=== PATIENT | male | born 1955 | race Caucasian/White ===

== ENCOUNTER → 2016-11-04 | Outpatient (CLI) | payer OTHER ==
[~2016-11-04] MED LIST: ASPI325T PO; CALC-170 PO; CETI10TA PO; CLAR10CA3 PO; CRES20TA PO; FISH100049 PO; FURO20TA2 PO; HUMA100I3 SC; INSULANT SC; INSUR SC; ISOS60TA2 PO; K-TA10TA2 PO; LEXA1TAB PO; LISI-538 PO; METF1000 PO; METO100T PO; METO50TA2 PO; MULTCAP PO; OMEP20CA3 PO; PRIL20CA9 PO; RANO5TAB PO; ROSU10TA PO; TOUJ1.2I SC; TRIC145T PO; ZETI10TA2 PO
[2016-11-04 11:23] LABS: MEAN CORPUSCULAR HEMOGLOBIN 32.6 pg (27.0-33.0); MEAN CORPUSCULAR HGB CONC 35.8 g/dl (32.0-36.5); RED CELL DISTRIBUTION WIDTH 12.1 % (11.5-14.5)
[2016-11-04 12:40] LABS: ALBUMIN 4.1 GM/DL (3.2-5.2); ALBUMIN/GLOBULIN RATIO 1.41 (1.00-1.93); BILIRUBIN,TOTAL 0.4 MG/DL (0.2-1.0); CALCIUM LEVEL 9.6 MG/DL (8.8-10.2); CREATININE FOR GFR 1.38 MG/DL (0.70-1.30); GLOMERULAR FILTRATION RATE 55.8 (>49); POTASSIUM SERUM 4.5 MEQ/L (3.5-5.1)
== END ==
LOC: M LAB 10:27
PROVIDERS: ATTEND Nurse Practitioner Family
DX: Z01.812 Encounter for preprocedural laboratory examination (principal)

== ENCOUNTER → 2016-11-09 | Outpatient (CLI) | payer OTHER ==
[2016-11-09 16:05] LABS: MEAN CORPUSCULAR HEMOGLOBIN 32.7 pg (27.0-33.0); MEAN CORPUSCULAR HGB CONC 34.8 g/dl (32.0-36.5); MEAN CORPUSCULAR VOLUME 94.1 fl (80.0-96.0); RED CELL DISTRIBUTION WIDTH 12.5 % (11.5-14.5); WHITE BLOOD COUNT 7.1 K/mm3 (4.0-10.0)
[2016-11-09 16:53] LABS: ANION GAP 6 MEQ/L (8-16); BLOOD UREA NITROGEN 21 MG/DL (7-18); CALCIUM LEVEL 9.3 MG/DL (8.8-10.2); CARBON DIOXIDE LEVEL 28 MEQ/L (21-32); CHLORIDE LEVEL 105 MEQ/L (98-107); CREATININE FOR GFR 1.47 MG/DL (0.70-1.30); GLOMERULAR FILTRATION RATE 51.8 (>49); GLUCOSE, FASTING 159 MG/DL (80-110); MAGNESIUM LEVEL 1.5 MG/DL (1.8-2.4); POTASSIUM SERUM 4.3 MEQ/L (3.5-5.1); SODIUM LEVEL 139 MEQ/L (136-145); URIC ACID 4.4 MG/DL (3.5-7.2)
== END ==
LOC: M LAB 15:04
PROVIDERS: ATTEND Internal Medicine Nephrology
DX: N18.3 Chronic kidney disease, stage 3 (moderate) (principal); E11.22 Type 2 diabetes mellitus with diabetic chronic kidney disease; D63.1 Anemia in chronic kidney disease; N25.81 Secondary hyperparathyroidism of renal origin

== ENCOUNTER → 2016-11-15 | Day surgery (SDC) | payer OTHER ==
[~2016-11-15] VITALS: Ht 165.1 cm; Wt 104.3 kg
[~2016-11-15] MED LIST changes: +ACETAMINOPHEN 325 MG TAB PO PRN; +D5W/0.2% SODIUM CHLORIDE 250 ML IV SCH; +ERYTHROMYCIN OPHTH OINT As Ordered ONE; +LIDOCAINE 2% W/EPIN INJ 20ML **PRES FREE As Ordered ONE; +LIDOCAINE 4% INJ 5 ML AMP As Ordered ONE; +LIDOCAINE 4% INJ 5 ML AMP OU ONE; +MIDAZOLAM INJ 2 MG/2 ML VIAL (J2250) As Ordered ONE; +POVIDONE-IODINE 5% OPHTH PREP SOL 30ML As Ordered ONE; +PROPARACAINE 0.5% OPHTH SOL 15ML OS PRN; +TETRACAINE 0.5% OPHTH SOLN 4ML As Ordered ONE; +TRIMETHOBENZAMIDE 300 MG CAP PO PRN; +fentaNYL 100 MCG/2 ML INJECTION (J3010) As Ordered ONE
[2016-11-15 14:38] VITALS: BP 110/60
--- NOTE | 2016-11-16 05:44 | RO ---
DATE OF PROCEDURE: 11/15/2016 PREPROCEDURE DIAGNOSIS: Visually significant ptosis left upper lid. POSTPROCEDURE DIAGNOSIS: Visually significant ptosis left upper lid status post ptosis repair by levator advancement left upper lid. PROCEDURE: Ptosis repair by levator advancement left upper lid external approach. SURGEON: Anant Rangel Jr., DO, FACS FABRICATION OPERATOR: None. ANESTHESIA: 2% lidocaine with epinephrine infused locally with sedation by anesthesia ESTIMATED BLOOD LOSS: Minimal. COMPLICATIONS: None. SPECIMEN: Left upper lid skin and subcutaneous tissue and muscle sent to pathology. It appeared clinically normal. PROCEDURE IN DETAIL: After obtaining informed consent, the patient was taken to the operating room and prepped and draped in a sterile fashion. The upper lids were inspected. The upper lid crease on both eyes was 10 mm. The left eye was marked with the desired amount of skin to be excised. The excess skin was dissected with cutting dissection by Bovie cautery. The upper lid was dissected and the levator aponeurosis was identified. The levator aponeurosis was freed with sharp and blunt dissection and brought forward and repositioned onto the tarsal plate approximately 4 mm from the lid line with horizontal mattress secretion of #6-0 silk. The patient was sat up and lid position was checked and found to be satisfactory. Next, the skin was closed with running #6-0 Nylon suture. The drape was removed and the patient had an ice pack applied to his left eye with erythromycin ointment. He returned to the recovery room in excellent condition and will followup in the office postoperatively. Postoperative medication is erythromycin ointment four times a day in the left eye and on the suture line.
== END | disposition home or self-care (01) ==
LOC: M SDC 09:55
PROVIDERS: ATTEND Ophthalmology
DX: H02.412 Mechanical ptosis of left eyelid (principal); H02.834 Dermatochalasis of left upper eyelid; I10 Essential (primary) hypertension; E10.9 Type 1 diabetes mellitus without complications; Z79.4 Long term (current) use of insulin; I25.2 Old myocardial infarction; I25.10 Atherosclerotic heart disease of native coronary artery without angina pectoris; I20.9 Angina pectoris, unspecified; F32.9 Major depressive disorder, single episode, unspecified; Z98.61 Coronary angioplasty status; Z79.82 Long term (current) use of aspirin; J44.9 Chronic obstructive pulmonary disease, unspecified; K21.9 Gastro-esophageal reflux disease without esophagitis; F17.210 Nicotine dependence, cigarettes, uncomplicated; Z79.899 Other long term (current) drug therapy

== ENCOUNTER → 2017-02-02 | Outpatient (CLI) | payer OTHER ==
[~2017-02-02] MED LIST changes: -ACETAMINOPHEN 325 MG TAB PO PRN; +CRES10TA32 PO; -D5W/0.2% SODIUM CHLORIDE 250 ML IV SCH; -ERYTHROMYCIN OPHTH OINT As Ordered ONE; -LIDOCAINE 2% W/EPIN INJ 20ML **PRES FREE As Ordered ONE; -LIDOCAINE 4% INJ 5 ML AMP As Ordered ONE; -LIDOCAINE 4% INJ 5 ML AMP OU ONE; -MIDAZOLAM INJ 2 MG/2 ML VIAL (J2250) As Ordered ONE; -POVIDONE-IODINE 5% OPHTH PREP SOL 30ML As Ordered ONE; -PROPARACAINE 0.5% OPHTH SOL 15ML OS PRN; -ROSU10TA PO; -TETRACAINE 0.5% OPHTH SOLN 4ML As Ordered ONE; -TRIMETHOBENZAMIDE 300 MG CAP PO PRN; -fentaNYL 100 MCG/2 ML INJECTION (J3010) As Ordered ONE
[2017-02-02 10:31] LABS: MEAN CORPUSCULAR HEMOGLOBIN 33.6 pg (27.0-33.0); MEAN CORPUSCULAR HGB CONC 35.4 g/dl (32.0-36.5); RED CELL DISTRIBUTION WIDTH 12.9 % (11.5-14.5); WHITE BLOOD COUNT 6.7 K/mm3 (4.0-10.0)
[2017-02-02 11:22] LABS: ALBUMIN 3.9 GM/DL (3.2-5.2); ALBUMIN/GLOBULIN RATIO 1.22 (1.00-1.93); BILIRUBIN,TOTAL 0.3 MG/DL (0.2-1.0); CALCIUM LEVEL 9.5 MG/DL (8.8-10.2); CREATININE FOR GFR 1.3 MG/DL (0.70-1.30); GLOMERULAR FILTRATION RATE 59.7 (>49); POTASSIUM SERUM 4.1 MEQ/L (3.5-5.1); TOTAL PROTEIN 7.1 GM/DL (6.4-8.2)
== END ==
LOC: M LAB 10:04
PROVIDERS: ATTEND Nurse Practitioner Family
DX: I10 Essential (primary) hypertension (principal); E11.9 Type 2 diabetes mellitus without complications; E78.00 Pure hypercholesterolemia, unspecified

== ENCOUNTER → 2017-05-05 | Outpatient (CLI) | payer OTHER ==
[~2017-05-05] MED LIST changes: -METF1000 PO; +METF10004 PO; -METO100T PO; +METO100T5 PO; -METO50TA2 PO; +METO50TA7 PO; -TRIC145T PO; +TRIC145T22 PO; -ZETI10TA2 PO; +ZETI10TA30 PO
[2017-05-05 09:57] LABS: MEAN CORPUSCULAR HEMOGLOBIN 33.8 pg (27.0-33.0); MEAN CORPUSCULAR HGB CONC 36.1 g/dl (32.0-36.5); MEAN CORPUSCULAR VOLUME 93.9 fl (80.0-96.0); RED CELL DISTRIBUTION WIDTH 12.6 % (11.5-14.5); WHITE BLOOD COUNT 6.8 K/mm3 (4.0-10.0)
[2017-05-05 10:13] LABS: ALBUMIN 3.8 GM/DL (3.2-5.2); ALBUMIN/GLOBULIN RATIO 1.19 (1.00-1.93); BILIRUBIN,TOTAL 0.4 MG/DL (0.2-1.0); CALCIUM LEVEL 9.1 MG/DL (8.8-10.2); CREATININE FOR GFR 1.4 MG/DL (0.70-1.30); GLOMERULAR FILTRATION RATE 54.8 (>49); POTASSIUM SERUM 4.3 MEQ/L (3.5-5.1)
== END ==
LOC: M LAB 08:26
PROVIDERS: ATTEND Nurse Practitioner Family
DX: I10 Essential (primary) hypertension (principal); E78.00 Pure hypercholesterolemia, unspecified; E11.9 Type 2 diabetes mellitus without complications

== ENCOUNTER → 2017-08-16 | Outpatient (CLI) | payer OTHER ==
[2017-08-16 10:46] LABS: MEAN CORPUSCULAR HEMOGLOBIN 32.1 pg (27.0-33.0); MEAN CORPUSCULAR HGB CONC 35.2 g/dl (32.0-36.5); MEAN CORPUSCULAR VOLUME 91.2 fl (80.0-96.0); PLATELET COUNT, AUTOMATED 250 10^3/uL (150-450); RED CELL DISTRIBUTION WIDTH 12.5 % (11.5-14.5); WHITE BLOOD COUNT 8.4 10^3/uL (4.0-10.0)
[2017-08-16 11:16] LABS: ALBUMIN 3.6 GM/DL (3.2-5.2); ALBUMIN/GLOBULIN RATIO 1.03 (1.00-1.93); BILIRUBIN,TOTAL 0.5 MG/DL (0.2-1.0); CALCIUM LEVEL 9.2 MG/DL (8.8-10.2); CREATININE FOR GFR 1.43 MG/DL (0.70-1.30); GLOMERULAR FILTRATION RATE 53.3 (>49); POTASSIUM SERUM 3.9 MEQ/L (3.5-5.1); TOTAL PROTEIN 7.1 GM/DL (6.4-8.2)
== END ==
LOC: M LAB 09:58
PROVIDERS: ATTEND Nurse Practitioner Family
DX: I10 Essential (primary) hypertension (principal); E78.00 Pure hypercholesterolemia, unspecified; E11.9 Type 2 diabetes mellitus without complications

== ENCOUNTER → 2017-11-14 | Outpatient (CLI) | payer OTHER ==
[2017-11-14 09:48] LABS: HEMATOCRIT 41.3 % (42.0-52.0); HEMOGLOBIN 14.5 g/dl (14.0-18.0); MEAN CORPUSCULAR HEMOGLOBIN 32.6 pg (27.0-33.0); MEAN CORPUSCULAR HGB CONC 35.1 g/dl (32.0-36.5); MEAN CORPUSCULAR VOLUME 92.8 fl (80.0-96.0); PLATELET COUNT, AUTOMATED 252 10^3/uL (150-450); RED BLOOD COUNT 4.45 10^6/uL (4.30-6.10); WHITE BLOOD COUNT 7.8 10^3/uL (4.0-10.0)
[2017-11-14 10:11] LABS: ALBUMIN 3.8 GM/DL (3.2-5.2); ALBUMIN/GLOBULIN RATIO 1.23 (1.00-1.93); ALKALINE PHOSPHATASE 72 U/L (45-117); ALT/SGPT 54 U/L (12-78); ANION GAP 8 MEQ/L (8-16); AST/SGOT 37 U/L (7-37); BILIRUBIN,TOTAL 0.3 MG/DL (0.2-1.0); BLOOD UREA NITROGEN 18 MG/DL (7-18); CALCIUM LEVEL 8.9 MG/DL (8.8-10.2); CARBON DIOXIDE LEVEL 27 MEQ/L (21-32); CHLORIDE LEVEL 105 MEQ/L (98-107); CHOLESTEROL LEVEL 151 MG/DL (<200); CPK CREATINE PHOSPHOKINASE 278 U/L (39-308); CREATININE FOR GFR 1.25 MG/DL (0.70-1.30); ESTIMATED AVERAGE GLUCOSE 192 MG/DL (60-110); GLOMERULAR FILTRATION RATE > 60.0 (>49); GLUCOSE, FASTING 142 MG/DL (70-100); HDL CHOLESTEROL 21 MG/DL (>40); HEMOGLOBIN A1c 8.3 %; NON-HDL-C 130 MG/DL; POTASSIUM SERUM 4.2 MEQ/L (3.5-5.1); SODIUM LEVEL 140 MEQ/L (136-145); TOTAL PROTEIN 6.9 GM/DL (6.4-8.2); TRIGLYCERIDES LEVEL 562 MG/DL (<150)
== END ==
LOC: M LAB 08:51
DX: E11.9 Type 2 diabetes mellitus without complications (principal); I10 Essential (primary) hypertension; E78.00 Pure hypercholesterolemia, unspecified
CPT/HCPCS: 82550

== ENCOUNTER → 2017-12-26 | Outpatient (CLI) | payer OTHER ==
[2017-12-26 09:35] LABS: BASO # 0.2 10^3/uL (0.0-0.2); BASO % 1.9 % (0.0-1.0); EOS # 0.5 10^3/uL (0.0-0.50); EOS % 5.3 % (0.0-3.0); HEMATOCRIT 41.3 % (42.0-52.0); HEMOGLOBIN 14.3 g/dl (13.5-17.5); IMMATURE GRANULOCYTE % 0.5 % (0-3.0); LYMPH # 3.2 10^3/uL (1.5-4.5); LYMPH % 37.4 % (24.0-44.0); MEAN CORPUSCULAR HEMOGLOBIN 32.2 pg (27.0-33.0); MEAN CORPUSCULAR HGB CONC 34.6 g/dl (32.0-36.5); MONO # 0.8 10^3/uL (0.0-0.8); MONO % 8.9 % (0.0-5.0); PLATELET COUNT, AUTOMATED 261 10^3/uL (150-450); RED BLOOD COUNT 4.44 10^6/uL (4.30-6.10); RED CELL DISTRIBUTION WIDTH 12.5 % (11.5-14.5); WHITE BLOOD COUNT 8.6 10^3/uL (4.0-10.0)
[2017-12-26 09:37] LABS: APPEARANCE, URINE CLEAR (CLEAR); BACTERIA, URINE AUTO NEGATIVE (NEGATIVE); BILIRUBIN, URINE AUTO NEGATIVE (NEGATIVE); BLOOD, URINE BLOOD NEGATIVE (NEGATIVE); COLOR, URINE YELLOW (YELLOW); GLUCOSE, URINE (UA) AUTO NEGATIVE (NEGATIVE); KETONE, URINE AUTO NEGATIVE (NEGATIVE); LEUKOCYTE ESTERASE, URINE AUTO NEGATIVE (NEGATIVE); NITRITE, URINE AUTO NEGATIVE (NEGATIVE); PROTEIN, URINE AUTO NEGATIVE (NEGATIVE); RBC, URINE AUTO 2 /HPF (0-3); SPECIFIC GRAVITY URINE AUTO 1.018 (1.002-1.035); SQUAMOUS EPITHELIAL CELL UR AU 0 /HPF (0-6); UROBILINOGEN, URINE AUTO 0.2 mg/dL (0.0-2.0); WBC, URINE AUTO 1 /HPF (0-3)
[2017-12-26 10:06] LABS: PTH INTACT 7.3 PG/ML (18.5-88.0)
[2017-12-26 11:38] LABS: ALBUMIN 3.9 GM/DL (3.2-5.2); ANION GAP 8 MEQ/L (8-16); BLOOD UREA NITROGEN 27 MG/DL (7-18); CALCIUM LEVEL 9.4 MG/DL (8.8-10.2); CARBON DIOXIDE LEVEL 27 MEQ/L (21-32); CHLORIDE LEVEL 104 MEQ/L (98-107); CREATININE FOR GFR 1.47 MG/DL (0.70-1.30); GLOMERULAR FILTRATION RATE 51.7 (>49); GLUCOSE, FASTING 152 MG/DL (70-100); PHOSPHORUS LEVEL 3.7 MG/DL (2.5-4.9); POTASSIUM SERUM 4.4 MEQ/L (3.5-5.1); SODIUM LEVEL 139 MEQ/L (136-145); URIC ACID 4.3 MG/DL (3.5-7.2)
[2017-12-26 11:47] LABS: MALB URINE SIEMENS 43.8 MG/L; MAU/CREAT RATIO 31.2 MCG/MG (0.0-30.0)
== END ==
LOC: M LAB 08:27
DX: N18.3 Chronic kidney disease, stage 3 (moderate) (principal); E83.42 Hypomagnesemia; E11.22 Type 2 diabetes mellitus with diabetic chronic kidney disease; I12.9 Hypertensive chronic kidney disease with stage 1 through stage 4 chronic kidney disease, or unspecified chronic kidney disease
CPT/HCPCS: 83735

== ENCOUNTER → 2018-03-08 | Outpatient (CLI) | payer OTHER ==
[2018-03-08 12:57] LABS: HEMATOCRIT 42.8 % (42.0-52.0); HEMOGLOBIN 15.2 g/dl (13.5-17.5); MEAN CORPUSCULAR HEMOGLOBIN 33.1 pg (27.0-33.0); MEAN CORPUSCULAR HGB CONC 35.5 g/dl (32.0-36.5); MEAN CORPUSCULAR VOLUME 93.2 fl (80.0-96.0); PLATELET COUNT, AUTOMATED 224 10^3/uL (150-450); RED BLOOD COUNT 4.59 10^6/uL (4.30-6.10); RED CELL DISTRIBUTION WIDTH 12.5 % (11.5-14.5); WHITE BLOOD COUNT 8.9 10^3/uL (4.0-10.0)
[2018-03-08 13:12] LABS: ESTIMATED AVERAGE GLUCOSE 160 MG/DL (60-110); HEMOGLOBIN A1c 7.2 %
[2018-03-08 13:25] LABS: ALBUMIN 3.9 GM/DL (3.2-5.2); ALBUMIN/GLOBULIN RATIO 1.15 (1.00-1.93); ALKALINE PHOSPHATASE 65 U/L (45-117); ALT/SGPT 45 U/L (12-78); ANION GAP 9 MEQ/L (8-16); AST/SGOT 30 U/L (7-37); BILIRUBIN,TOTAL 0.4 MG/DL (0.2-1.0); BLOOD UREA NITROGEN 22 MG/DL (7-18); CALCIUM LEVEL 10.2 MG/DL (8.8-10.2); CARBON DIOXIDE LEVEL 29 MEQ/L (21-32); CHLORIDE LEVEL 104 MEQ/L (98-107); CHOLESTEROL LEVEL 142 MG/DL (<200); CHOLESTEROL RISK RATIO 6.173 (<5); CPK CREATINE PHOSPHOKINASE 256 U/L (39-308); CREATININE FOR GFR 1.56 MG/DL (0.70-1.30); GLOMERULAR FILTRATION RATE 48.2 (>49); GLUCOSE, FASTING 117 MG/DL (70-100); HDL CHOLESTEROL 23 MG/DL (>40); LDL CHOLESTEROL 45.2 MG/DL (<100); NON-HDL-C 119 MG/DL; POTASSIUM SERUM 4.4 MEQ/L (3.5-5.1); SODIUM LEVEL 142 MEQ/L (136-145); TOTAL PROTEIN 7.3 GM/DL (6.4-8.2); TRIGLYCERIDES LEVEL 369 MG/DL (<150)
[2018-03-08 13:31] LABS: MAU/CREAT RATIO 111.6 MCG/MG (0.0-30.0)
== END ==
LOC: M LAB 11:56
DX: I10 Essential (primary) hypertension (principal)
CPT/HCPCS: 82550

== ENCOUNTER → 2018-04-20 | Outpatient (CLI) | payer OTHER ==
[2018-04-20 07:36] LABS: HEMATOCRIT 40.4 % (42.0-52.0); HEMOGLOBIN 14.4 g/dl (13.5-17.5); MEAN CORPUSCULAR HEMOGLOBIN 33.3 pg (27.0-33.0); MEAN CORPUSCULAR HGB CONC 35.6 g/dl (32.0-36.5); MEAN CORPUSCULAR VOLUME 93.3 fl (80.0-96.0); PLATELET COUNT, AUTOMATED 271 10^3/uL (150-450); RED BLOOD COUNT 4.33 10^6/uL (4.30-6.10); RED CELL DISTRIBUTION WIDTH 12.2 % (11.5-14.5); WHITE BLOOD COUNT 8.1 10^3/uL (4.0-10.0)
[2018-04-20 07:53] LABS: ALBUMIN 3.7 GM/DL (3.2-5.2); ANION GAP 9 MEQ/L (8-16); BLOOD UREA NITROGEN 20 MG/DL (7-18); CALCIUM LEVEL 9.5 MG/DL (8.8-10.2); CARBON DIOXIDE LEVEL 26 MEQ/L (21-32); CHLORIDE LEVEL 106 MEQ/L (98-107); CREATININE FOR GFR 1.58 MG/DL (0.70-1.30); GLOMERULAR FILTRATION RATE 47.5 (>49); GLUCOSE, FASTING 155 MG/DL (70-100); PHOSPHORUS LEVEL 3.6 MG/DL (2.5-4.9); POTASSIUM SERUM 4.4 MEQ/L (3.5-5.1); SODIUM LEVEL 141 MEQ/L (136-145)
[2018-04-20 08:04] LABS: MAU/CREAT RATIO 92.9 MCG/MG (0.0-30.0)
[2018-04-20 08:38] LABS: APPEARANCE, URINE CLEAR (CLEAR); BACTERIA, URINE AUTO NEGATIVE (NEGATIVE); BILIRUBIN, URINE AUTO NEGATIVE (NEGATIVE); BLOOD, URINE BLOOD NEGATIVE (NEGATIVE); COLOR, URINE YELLOW (YELLOW); GLUCOSE, URINE (UA) AUTO NEGATIVE (NEGATIVE); KETONE, URINE AUTO NEGATIVE (NEGATIVE); LEUKOCYTE ESTERASE, URINE AUTO NEGATIVE (NEGATIVE); NITRITE, URINE AUTO NEGATIVE (NEGATIVE); PROTEIN, URINE AUTO NEGATIVE (NEGATIVE); RBC, URINE AUTO 0 /HPF (0-3); SPECIFIC GRAVITY URINE AUTO 1.013 (1.002-1.035); SQUAMOUS EPITHELIAL CELL UR AU 0 /HPF (0-6); UROBILINOGEN, URINE AUTO 0.2 mg/dL (0.0-2.0); WBC, URINE AUTO 1 /HPF (0-3)
== END ==
LOC: M LAB 06:58
DX: N18.3 Chronic kidney disease, stage 3 (moderate) (principal); E11.22 Type 2 diabetes mellitus with diabetic chronic kidney disease
CPT/HCPCS: 84550

== ENCOUNTER → 2018-05-23 | Outpatient (CLI) | payer OTHER ==
[2018-05-23 10:50] LABS: BASO # 0.1 10^3/uL (0.0-0.2); BASO % 1.4 % (0.0-1.0); EOS # 0.4 10^3/uL (0.0-0.50); EOS % 4.8 % (0.0-3.0); HEMATOCRIT 38.8 % (42.0-52.0); HEMOGLOBIN 13.6 g/dl (13.5-17.5); IMMATURE GRANULOCYTE % 0.4 % (0-3.0); LYMPH # 3.2 10^3/uL (1.5-4.5); LYMPH % 38.6 % (24.0-44.0); MEAN CORPUSCULAR HEMOGLOBIN 32.3 pg (27.0-33.0); MEAN CORPUSCULAR HGB CONC 35.1 g/dl (32.0-36.5); MEAN CORPUSCULAR VOLUME 92.2 fl (80.0-96.0); MONO # 0.7 10^3/uL (0.0-0.8); MONO % 8.7 % (0.0-5.0); NEUTROPHILS # 3.8 10^3/uL (1.8-7.7); NEUTROPHILS % 46.1 % (36.0-66.0); PLATELET COUNT, AUTOMATED 231 10^3/uL (150-450); RED BLOOD COUNT 4.21 10^6/uL (4.30-6.10); RED CELL DISTRIBUTION WIDTH 12.2 % (11.5-14.5); WHITE BLOOD COUNT 8.3 10^3/uL (4.0-10.0)
[2018-05-23 10:55] LABS: APPEARANCE, URINE CLEAR (CLEAR); BACTERIA, URINE AUTO NEGATIVE (NEGATIVE); BILIRUBIN, URINE AUTO NEGATIVE (NEGATIVE); BLOOD, URINE BLOOD NEGATIVE (NEGATIVE); COLOR, URINE YELLOW (YELLOW); GLUCOSE, URINE (UA) AUTO NEGATIVE (NEGATIVE); KETONE, URINE AUTO NEGATIVE (NEGATIVE); LEUKOCYTE ESTERASE, URINE AUTO NEGATIVE (NEGATIVE); NITRITE, URINE AUTO NEGATIVE (NEGATIVE); PROTEIN, URINE AUTO NEGATIVE (NEGATIVE); RBC, URINE AUTO 3 /HPF (0-3); SPECIFIC GRAVITY URINE AUTO 1.015 (1.002-1.035); SQUAMOUS EPITHELIAL CELL UR AU 0 /HPF (0-6); UROBILINOGEN, URINE AUTO 0.2 mg/dL (0.0-2.0); WBC, URINE AUTO 1 /HPF (0-3)
[2018-05-23 11:12] LABS: ALBUMIN 3.7 GM/DL (3.2-5.2); ANION GAP 8 MEQ/L (8-16); BLOOD UREA NITROGEN 28 MG/DL (7-18); CALCIUM LEVEL 10.2 MG/DL (8.8-10.2); CARBON DIOXIDE LEVEL 25 MEQ/L (21-32); CHLORIDE LEVEL 105 MEQ/L (98-107); CREATININE FOR GFR 1.47 MG/DL (0.70-1.30); GLOMERULAR FILTRATION RATE 51.7 (>49); GLUCOSE, FASTING 129 MG/DL (70-100); PHOSPHORUS LEVEL 3.3 MG/DL (2.5-4.9); POTASSIUM SERUM 4.5 MEQ/L (3.5-5.1); SODIUM LEVEL 138 MEQ/L (136-145)
== END ==
LOC: M LAB 10:17
DX: N18.3 Chronic kidney disease, stage 3 (moderate) (principal); Q60.3 Renal hypoplasia, unilateral
CPT/HCPCS: 80069

== ENCOUNTER → 2018-06-05 | Outpatient (CLI) | payer OTHER ==
[2018-06-05 12:54] LABS: ESTIMATED AVERAGE GLUCOSE 160 MG/DL (60-110); HEMOGLOBIN A1c 7.2 %
[2018-06-05 13:03] LABS: CHOLESTEROL LEVEL 166 MG/DL (<200); CHOLESTEROL RISK RATIO 7.217 (<5); HDL CHOLESTEROL 23 MG/DL (>40); NON-HDL-C 143 MG/DL; TRIGLYCERIDES LEVEL 407 MG/DL (<150)
== END ==
LOC: M LAB 10:37
DX: E78.00 Pure hypercholesterolemia, unspecified (principal); E11.9 Type 2 diabetes mellitus without complications
CPT/HCPCS: 83036

== ENCOUNTER → 2018-06-27 | Outpatient (CLI) | payer OTHER ==
[2018-06-27 11:49] LABS: BASO # 0.1 10^3/uL (0.0-0.2); EOS # 0.4 10^3/uL (0.0-0.50); EOS % 5.3 % (0.0-3.0); HEMATOCRIT 38.5 % (42.0-52.0); HEMOGLOBIN 13.4 g/dl (13.5-17.5); IMMATURE GRANULOCYTE % 0.3 % (0-3.0); LYMPH # 2.8 10^3/uL (1.5-4.5); LYMPH % 41.7 % (24.0-44.0); MEAN CORPUSCULAR HEMOGLOBIN 32.7 pg (27.0-33.0); MEAN CORPUSCULAR HGB CONC 34.8 g/dl (32.0-36.5); MEAN CORPUSCULAR VOLUME 93.9 fl (80.0-96.0); MONO # 0.6 10^3/uL (0.0-0.8); MONO % 8.9 % (0.0-5.0); NEUTROPHILS # 2.8 10^3/uL (1.8-7.7); NEUTROPHILS % 41.8 % (36.0-66.0); PLATELET COUNT, AUTOMATED 213 10^3/uL (150-450); RED CELL DISTRIBUTION WIDTH 12.5 % (11.5-14.5); WHITE BLOOD COUNT 6.6 10^3/uL (4.0-10.0)
[2018-06-27 11:50] LABS: APPEARANCE, URINE CLEAR (CLEAR); BACTERIA, URINE AUTO NEGATIVE (NEGATIVE); BILIRUBIN, URINE AUTO NEGATIVE (NEGATIVE); BLOOD, URINE BLOOD NEGATIVE (NEGATIVE); COLOR, URINE YELLOW (YELLOW); GLUCOSE, URINE (UA) AUTO NEGATIVE (NEGATIVE); KETONE, URINE AUTO NEGATIVE (NEGATIVE); LEUKOCYTE ESTERASE, URINE AUTO NEGATIVE (NEGATIVE); MUCUS, URINE SMALL (NEGATIVE); NITRITE, URINE AUTO NEGATIVE (NEGATIVE); PROTEIN, URINE AUTO 1+ mg/dL (NEGATIVE); RBC, URINE AUTO 2 /HPF (0-3); SPECIFIC GRAVITY URINE AUTO 1.016 (1.002-1.035); SQUAMOUS EPITHELIAL CELL UR AU 0 /HPF (0-6); UROBILINOGEN, URINE AUTO 0.2 mg/dL (0.0-2.0); WBC, URINE AUTO 2 /HPF (0-3)
[2018-06-27 12:47] LABS: ALBUMIN 3.7 GM/DL (3.2-5.2); ANION GAP 7 MEQ/L (8-16); BLOOD UREA NITROGEN 18 MG/DL (7-18); CALCIUM LEVEL 9.4 MG/DL (8.8-10.2); CARBON DIOXIDE LEVEL 26 MEQ/L (21-32); CHLORIDE LEVEL 111 MEQ/L (98-107); CREATININE FOR GFR 1.43 MG/DL (0.70-1.30); GLOMERULAR FILTRATION RATE 53.2 (>49); GLUCOSE, FASTING 136 MG/DL (70-100); MAGNESIUM LEVEL 1.5 MG/DL (1.8-2.4); PHOSPHORUS LEVEL 3.6 MG/DL (2.5-4.9); POTASSIUM SERUM 4.6 MEQ/L (3.5-5.1); SODIUM LEVEL 144 MEQ/L (136-145)
== END ==
LOC: M LAB 10:53
DX: N18.3 Chronic kidney disease, stage 3 (moderate) (principal)
CPT/HCPCS: 83735

== ENCOUNTER → 2018-08-09 | Outpatient (CLI) | payer OTHER ==
[2018-08-09 16:29] LABS: MAGNESIUM LEVEL 1.5 MG/DL (1.8-2.4)
== END ==
LOC: M LAB 15:47
DX: E83.42 Hypomagnesemia (principal)
CPT/HCPCS: 83735

== ENCOUNTER 2018-09-25 14:30 | Outpatient (RCR) | payer OTHER ==
[~2018-09-25 14:30] MED LIST changes: +COLA100C5 PO; +ISOS30TA4 PO; +MAGN400T2 PO; +MIRA3350 PO; +TORS20TA2 PO
== END 2018-10-04 ==
LOC: M PT 14:30
PROVIDERS: ATTEND Physician Assistant Medical
DX: M54.32 Sciatica, left side (principal)

== ENCOUNTER → 2018-09-26 | Outpatient (CLI) | payer OTHER ==
[2018-09-26 09:02] LABS: BASO # 0.2 10^3/uL (0.0-0.2); BASO % 2.5 % (0.0-1.0); EOS # 0.4 10^3/uL (0.0-0.50); EOS % 5.4 % (0.0-3.0); HEMATOCRIT 40.1 % (42.0-52.0); HEMOGLOBIN 13.8 g/dl (13.5-17.5); LYMPH # 3.1 10^3/uL (1.5-4.5); LYMPH % 39.6 % (24.0-44.0); MEAN CORPUSCULAR HEMOGLOBIN 32.5 pg (27.0-33.0); MEAN CORPUSCULAR HGB CONC 34.4 g/dl (32.0-36.5); MEAN CORPUSCULAR VOLUME 94.6 fl (80.0-96.0); MONO # 0.8 10^3/uL (0.0-0.8); MONO % 10.1 % (0.0-5.0); NEUTROPHILS # 3.3 10^3/uL (1.8-7.7); PLATELET COUNT, AUTOMATED 213 10^3/uL (150-450); RED BLOOD COUNT 4.24 10^6/uL (4.30-6.10); WHITE BLOOD COUNT 7.7 10^3/uL (4.0-10.0)
[2018-09-26 09:05] LABS: APPEARANCE, URINE CLEAR (CLEAR); BACTERIA, URINE AUTO NEGATIVE (NEGATIVE); BILIRUBIN, URINE AUTO NEGATIVE (NEGATIVE); BLOOD, URINE BLOOD NEGATIVE (NEGATIVE); COLOR, URINE YELLOW (YELLOW); GLUCOSE, URINE (UA) AUTO NEGATIVE (NEGATIVE); KETONE, URINE AUTO NEGATIVE (NEGATIVE); LEUKOCYTE ESTERASE, URINE AUTO NEGATIVE (NEGATIVE); NITRITE, URINE AUTO NEGATIVE (NEGATIVE); PROTEIN, URINE AUTO 1+ mg/dL (NEGATIVE); RBC, URINE AUTO 2 /HPF (0-3); SPECIFIC GRAVITY URINE AUTO 1.015 (1.002-1.035); SQUAMOUS EPITHELIAL CELL UR AU 0 /HPF (0-6); UROBILINOGEN, URINE AUTO 0.2 mg/dL (0.0-2.0); WBC, URINE AUTO 1 /HPF (0-3)
[2018-09-26 09:53] LABS: ALBUMIN 3.9 GM/DL (3.2-5.2); CALCIUM LEVEL 9.2 MG/DL (8.8-10.2); CREATININE FOR GFR 1.56 MG/DL (0.70-1.30); GLOMERULAR FILTRATION RATE 48.1 (>49); MAGNESIUM LEVEL 2.1 MG/DL (1.8-2.4); POTASSIUM SERUM 4.6 MEQ/L (3.5-5.1)
[2018-09-26 15:07] LABS: PTH INTACT 9.2 PG/ML (18.5-88.0)
== END ==
LOC: M LAB 08:05
PROVIDERS: ATTEND Internal Medicine Nephrology
DX: N18.3 Chronic kidney disease, stage 3 (moderate) (principal)

== ENCOUNTER 2018-10-08 06:46 | Day surgery (SDC) | payer OTHER ==
[~2018-10-08] VITALS: Ht 165.1 cm; Wt 107.5 kg
[~2018-10-08 06:46] MED LIST changes: +NS 1,000 ML IV ONE
[2018-10-08] MEDS ORDERED: PROPOFOL 200 MG/20 ML VIAL As Ordered ONE ×2 (07:06→08:40)
[2018-10-08] MEDS ORDERED: LIDOCAINE 2% INJ 100 MG/5 ML SDV (FOR ANES.) As Ordered ONE (07:06)
--- NOTE | 2018-10-08 08:56 | ROOR ---
Patient Name: Jay Rapp Procedure Date: 10/08/2018 8:11 AM Date of : 1955 Age: 63 Room: [facility] Gender: Male Note Status: Finalized Procedure: Colonoscopy Indications: Screening for colon cancer: Family history of colorectal cancer in distant relative(s) Providers: Elian Peres MD Referring MD: Camron Piña Requesting Provider: Medicines: Monitored Anesthesia Care Complications: No immediate complications. Procedure: Pre-Anesthesia Assessment: - Prior to the procedure, a History and Physical was performed, and patient medications and allergies were reviewed. The patient is competent. The risks and benefits of the procedure and the sedation options and risks were discussed with the patient. All questions were answered and informed consent was obtained. Patient identification and proposed procedure were verified by the physician, the nurse and the anesthesiologist in the procedure room. Mental Status Examination: alert and oriented. Airway Examination: normal oropharyngeal airway and neck mobility. Respiratory Examination: clear to auscultation. CV Examination: normal. Prophylactic Antibiotics: The patient does not require prophylactic antibiotics. Prior Anticoagulants: The patient has taken aspirin, last dose was 1 day prior to procedure. ASA Grade Assessment: III - A patient with severe systemic disease. After reviewing the risks and benefits, the patient was deemed in satisfactory condition to undergo the procedure. The anesthesia plan was to use monitored anesthesia care (MAC). Immediately prior to administration of medications, the patient was re-assessed for adequacy to receive sedatives. The heart rate, respiratory rate, oxygen saturations, blood pressure, adequacy of pulmonary ventilation, and response to care were monitored throughout the procedure. The physical status of the patient was re-assessed after the procedure. The Colonoscope was introduced through the anus and advanced to the terminal ileum, with identification of the appendiceal orifice and IC valve. The colonoscopy was performed without difficulty. The patient tolerated the procedure well. The quality of the bowel preparation was good. The ileocecal valve, appendiceal orifice, and rectum were photographed. Scope insertion time was 4 minutes. Scope withdrawal time was 10 minutes. The total duration of the procedure was 14 minutes. Findings: The perianal and digital rectal examinations were normal. A 6 mm polyp was found in the ascending colon. The polyp was sessile. The polyp was removed with a cold snare. Resection and retrieval were complete. Verification of patient identification for the specimen was done by the physician and nurse using the patient's name, date and medical record number. Estimated blood loss was minimal. Four sessile polyps were found in the transverse colon. The polyps were 5 to 8 mm in size. These polyps were removed with a cold snare. Resection and retrieval were complete. Multiple small and large-mouthed diverticula were found from sigmoid to descending colon. There was no evidence of diverticular bleeding. Non-bleeding external and internal hemorrhoids were found during retroflexion. The hemorrhoids were medium-sized. Impression: - One 6 mm polyp in the ascending colon, removed with a cold snare. Resected and retrieved. - Four 5 to 8 mm polyps in the transverse colon, removed with a cold snare. Resected and retrieved. - Moderate diverticulosis from sigmoid to descending colon. There was no evidence of diverticular bleeding. - Non-bleeding external and internal hemorrhoids. Recommendation: - Patient has a contact number available for emergencies. The signs and symptoms of potential delayed complications were discussed with the patient. Return to normal activities tomorrow. Written discharge instructions were provided to the patient. - High fiber diet. - Resume aspirin at prior dose today. Refer to primary physician for further adjustment of therapy. - Continue present medications. - Await pathology results. - Repeat colonoscopy in 3 - 5 years for surveillance based on pathology results. - Based on the biopsy results you will receive a phone call from GI clinic in 2-3 weeks to review the pathology results AND/OR your results will be faxed to your Primary care physician. - Return to primary care physician. Elian Peres MD Elian Peres MD 10/08/2018 8:56:13 AM This report has been signed electronically. Number of Addenda: 0 Note Initiated On: 10/08/2018 8:11 AM Estimated Blood Loss: Estimated blood loss was minimal.
[2018-10-08 09:15] VITALS: BP 109/60
== END 2018-10-08 09:22 | disposition home or self-care (01) ==
LOC: M OPP 06:46
PROVIDERS: ATTEND Internal Medicine Gastroenterology
DX: Z12.11 Encounter for screening for malignant neoplasm of colon (principal); Z80.0 Family history of malignant neoplasm of digestive organs; D12.2 Benign neoplasm of ascending colon; D12.3 Benign neoplasm of transverse colon; K64.8 Other hemorrhoids; K57.30 Diverticulosis of large intestine without perforation or abscess without bleeding; I25.2 Old myocardial infarction; Z79.4 Long term (current) use of insulin; Z79.82 Long term (current) use of aspirin; Z79.899 Other long term (current) drug therapy; Z95.5 Presence of coronary angioplasty implant and graft

== ENCOUNTER → 2019-01-02 | Outpatient (CLI) | payer MEDICARE ==
[~2019-01-02] MED LIST changes: +ASPI-1 PO; -ASPI325T PO; -CALC-170 PO; +CALC1TAB27 PO; +CRES10TA PO; -CRES10TA32 PO; -CRES20TA PO; +CRES20TA2 PO; -NS 1,000 ML IV ONE
[2019-01-02 10:32] LABS: APPEARANCE, URINE CLEAR (CLEAR); BACTERIA, URINE AUTO NEGATIVE (NEGATIVE); BILIRUBIN, URINE AUTO NEGATIVE (NEGATIVE); BLOOD, URINE BLOOD NEGATIVE (NEGATIVE); COLOR, URINE YELLOW (YELLOW); GLUCOSE, URINE (UA) AUTO 1+ mg/dL (NEGATIVE); KETONE, URINE AUTO TRACE mg/dL (NEGATIVE); LEUKOCYTE ESTERASE, URINE AUTO NEGATIVE (NEGATIVE); NITRITE, URINE AUTO NEGATIVE (NEGATIVE); PROTEIN, URINE AUTO 1+ mg/dL (NEGATIVE); RBC, URINE AUTO 2 /HPF (0-3); SPECIFIC GRAVITY URINE AUTO 1.016 (1.002-1.035); SQUAMOUS EPITHELIAL CELL UR AU 0 /HPF (0-6); UROBILINOGEN, URINE AUTO 0.2 mg/dL (0.0-2.0); WBC, URINE AUTO 2 /HPF (0-3)
[2019-01-02 10:36] LABS: BASO # 0.1 10^3/uL (0.0-0.2); BASO % 1.7 % (0.0-1.0); EOS # 0.4 10^3/uL (0.0-0.50); EOS % 5.5 % (0.0-3.0); HEMATOCRIT 40.6 % (42.0-52.0); HEMOGLOBIN 13.8 g/dl (13.5-17.5); LYMPH % 39.1 % (24.0-44.0); MEAN CORPUSCULAR HEMOGLOBIN 32.9 pg (27.0-33.0); MEAN CORPUSCULAR VOLUME 96.7 fl (80.0-96.0); MONO # 0.7 10^3/uL (0.0-0.8); MONO % 9.3 % (0.0-5.0); NEUTROPHILS # 3.4 10^3/uL (1.8-7.7); PLATELET COUNT, AUTOMATED 214 10^3/uL (150-450); WHITE BLOOD COUNT 7.6 10^3/uL (4.0-10.0)
[2019-01-02 10:57] LABS: ALBUMIN 3.6 GM/DL (3.2-5.2); CALCIUM LEVEL 8.8 MG/DL (8.8-10.2); CREATININE FOR GFR 1.71 MG/DL (0.70-1.30); GLOMERULAR FILTRATION RATE 43.3 (>49); MAGNESIUM LEVEL 1.9 MG/DL (1.8-2.4); PHOSPHORUS LEVEL 3.1 MG/DL (2.5-4.9); POTASSIUM SERUM 4.2 MEQ/L (3.5-5.1); URIC ACID 5.4 MG/DL (3.5-7.2)
== END ==
LOC: M LAB 09:53
PROVIDERS: ATTEND Internal Medicine Nephrology
DX: N18.3 Chronic kidney disease, stage 3 (moderate) (principal)

== ENCOUNTER → 2019-08-06 | Outpatient (REF) | payer MEDICARE ==
[~2019-08-06] MED LIST changes: +OMEP-172 PO; -OMEP20CA3 PO; +RANO500T7 PO; -RANO5TAB PO; +ZETI10TA16 PO; -ZETI10TA30 PO
[2019-08-06 14:48] LABS: MALB URINE SIEMENS 51.2 MG/L; MAU/CREAT RATIO 113.7 MCG/MG (0.0-30.0)
== END ==
LOC: M LAB REF 13:54
PROVIDERS: ATTEND Nurse Practitioner Family
DX: E11.22 Type 2 diabetes mellitus with diabetic chronic kidney disease (principal); N18.9 Chronic kidney disease, unspecified

== ENCOUNTER → 2019-10-30 | Outpatient (REF) | payer MEDICARE ==
[~2019-10-30] MED LIST changes: -OMEP-172 PO; +OMEP1CAP73 PO
== END ==
LOC: M LAB REF 11:29
PROVIDERS: ATTEND Surgery
DX: L72.3 Sebaceous cyst (principal)

== ENCOUNTER 2020-09-16 13:15 | Emergency (ER) | payer MEDICARE ==
[~2020-09-16] VITALS: Ht 165.1 cm; Wt 114.9 kg
--- OUTSIDE RECORDS SUMMARY | 2020-09-16 13:21 | CCD | Continuity of Care Document ---
Author Author Jay SAVAGE Organization Unknown Address [address] [facility] [address] [place] [address] Phone [phone] Care Team Providers Care Alternative Dispute Resolution Mediator Name Role Phone STEVIE SAVAGE AUTM [phone] Social History Type Date Description Comments Sex Unknown Encounters Type Date Location Provider Dx Diagnosis Office Visit 09/02/2020 8:30a [facility] FRANCISCO Tinoco I10 Essential (primary) hyperten sal E11.9 Type 2 diabetes mellitus wit hout complications E78.5 Hyperlipidemia, unspecified Assessments Date Code Description Provider 09/02/2020 I10 Essential (primary) hypertension FRANCISCO Corea 09/02/2020 E11.9 Type 2 diabetes mellitus without complications FRANCISCO Corea 09/02/2020 E78.5 Hyperlipidemia, unspecified FRANCISCO Robertson 06/03/2020 I10 Essential (primary) hypertension FRANCISCO Corea 06/03/2020 E78.5 Hyperlipidemia, unspecified FRANCISCO Robertson 06/03/2020 E11.9 Type 2 diabetes mellitus without complications FRANCISCO Corea 03/11/2020 I10 Essential (primary) hypertension FRANCISCO Corea 03/11/2020 E11.9 Type 2 diabetes mellitus without complications FRANCISCO Corea Plan of Treatment Future Appointment(s):* 12/01/2020 10:00 am - FRANCISCO Corea at [facility]
--- OUTSIDE RECORDS SUMMARY | 2020-09-16 13:22 | CCD | Continuity of Care Document ---
Author Author Jay MACIAS MANUFACTURING ASSOCIATE Organization Unknown Address [address] [place] [address] Phone [phone] Care Team Providers Care Multifocal Lens Assembler Name Role Phone Molly Artjessica KAT AUTM [phone] Valente Crawford AUTM Problems Description No Information Available Social History Type Date Description Comments Sex Unknown Cigarette Use Current Cigarette Smoker 1 Pack Daily ETOH Use Occasionally consumes alcohol Tobacco Use Start: Unknown Patient is a current smoker, smo kes every day Smoking Status Reviewed: 05/12/20 Patient is a current smoker, smokes every day Allergies, Adverse Reactions, Alerts Active Allergies Reaction Severity Comments Date Cortizone 07/11/2018 Erythromycin 07/11/2018 Sulfamethoxazole 02/10/2020 Medications Active Medications SIG Qnty Indications Ordering Provide r Date Bumetanide 2mg Tablets 1 po b id Chelsea Macias NP 08/11/2020 BD Pen Needle/Micro/Ultra-Fine/32G X 6mm 32G X 6 mm Misc use as directed once daily 100units Chelsea reynolds NP 08/09/2019 Freestyle Lite Test Strip Use as Directed Three Times A Day 300units E11.22 Chelsea Macias NP 01/15/2019 BD Insulin Syringe Ultra-Fine/0.5ML/31G X 8mm 31G X 5/16" 0.5 ML Misc use as directed three times daily 100units Chelsea Macias NP 10/22/2018 Metformin HCL ER 500mg Tablets ER 24HR take one tablet by mouth twice a day 180tabs E11.22 Chelsea mcclain NP 10/16/2018 Alpha Lipoic Acid 200mg Capsules 1 po qd Unknown Gabapentin 600mg Tablets 1 po tid Unknown Novolog 100Unit/ML Solution inject subcutaneously as directed per sliding scale Unk nown Tylenol 325mg Tablets 1 or 2 every 6 hours prn/pain Unknown Colace 100mg Capsules 1 by mouth twice a day, hold for diarrhea Unknown 0 Basaglar Kwikpen 100 Unit/ML Solution Pen-Inject 55 units every morning, 50 units at bedtime 45ml Chelsea Macias NP Magnesium 400mg Tablets 2 po qd Unknown Centrum Silver Adult 50+ Adult 50 Tablets 1 po qd Unknown Cetirizine HCL 10mg Tablets 1 by mouth every day Unknown Fish Oil 1000mg Capsules 2000mg 2 qd at hs Unknown Aspirin 325mg Tablets 1 by mouth every day Unknown Omeprazole 20mg Capsules DR 1 by mouth every day Unknown Ranexa 500mg Tablets ER 12HR 1 po bid Unknown Calcium 600+D [id number] Table ts 1 by mouth bid Unknown Zetia 10mg Tablets 1 by mo uth every day Unknown Metoprolol Tartrate 50mg Tablets take one tablet by mouth twice a day maximum daily dose = 2 tablets Unknown Crestor 10mg Tablets 1 by mouth every day Unknown Lisinopril 2.5mg Tablets 1 by mouth every day Unknown Fenofibrate 160mg Tablets 1 by mouth every day Unknown Potassium Chloride Maryam ER 20Meq Tablets ER 1/2 by mouth qd Unknown History Medications Trulicity 1.5mg/0.5ML Solution Pen -Inject inject sq 1x/week. 2ml E11.22 Chelsea Macias NP 05/12/2020 - 06/18/2020 Immunizations Description No Information Available Vital Signs Date Vital Result Comment 08/11/2020 2:19pm BP Systolic 122 mmHg BP Diastolic 74 mmHg Heart Rate 89 /min Body Temperature 96.8 F Height 64.75 inches 5'4.75" Weight 252.00 lb BMI (Body Mass Index) 42.3 kg/m2 O2 % BldC Oximetry 98 % 07/09/2020 3:07pm BP Systolic 124 mmHg BP Diastolic 80 mmHg Heart Rate 95 /min Body Temperature 97.8 F Height 64.75 inches 5'4.75" Weight 248.44 lb BMI (Body Mass Index) 41.7 kg/m2 O2 % BldC Oximetry 99 % Results Test Acquired Date Facility Test Result H/L Range Note Laboratory test finding 08/11/2020 In House Hemoglobin A1c 8.1 Glucose 173 Laboratory test finding 05/12/2020 In House Glucose 133 Hemoglobin A1c 7.8 Procedures Date Code Description Status 08/09/2019 [id number] Diabetic Foot Exam Completed Medical Devices Description No Information Available Encounters Type Date Location Provider Dx Diagnosis Office Visit 08/11/2020 2:15p DR. 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 N18.3 Chronic kidney disease, stag e 3 (moderate) E78.2 Mixed hyperlipidemia I10 Essential (primary) hyperten sal E66.01 Morbid (severe) obesity due to excess calories Assessments Date Code Description Provider 08/11/2020 E11.22 Type 2 diabetes mellitus with di abetic chronic kidney disease Chelsea Macias NP 08/11/2020 N18.30 Chronic kidney disease, stage 3 unspecified Chelsea Macias NP 08/11/2020 E78.2 Mixed hyperlipidemia Chelsea mcclain NP 08/11/2020 I10 Essential (primary) hypertension Chelsea Macias NP 08/11/2020 E66.01 Morbid (severe) obesity due to e xcess calories Chelsea Macias, FABRICIO 07/09/2020 E11.22 Type 2 diabetes mellitus with di abetic chronic kidney disease Chelsea Macias, FABRICIO 07/09/2020 N18.30 Chronic kidney disease, stage 3 unspecified Cehlsea Macias, MANUFACTURING ASSOCIATE 07/09/2020 E78.2 Mixed hyperlipidemia Chelsea mcclain, MANUFACTURING ASSOCIATE 07/09/2020 I10 Essential (primary) hypertension Chelsea Macias, MANUFACTURING ASSOCIATE 07/09/2020 E66.01 Morbid (severe) obesity due to e xcess calories Chelsea Macias, FABRICIO 05/12/2020 E11.22 Type 2 diabetes mellitus with di abetic chronic kidney diseas Chelsea Macias, FABRICIO 05/12/2020 N18.3 Chronic kidney disease, stage 3 (moderate) Chelsea Macias, FABRICIO 05/12/2020 E78.2 Mixed hyperlipidemia Chelsea mcclain, MANUFACTURING ASSOCIATE 05/12/2020 I10 Essential (primary) hypertension Chelsea Macias, MANUFACTURING ASSOCIATE 05/12/2020 E66.01 Morbid (severe) obesity due to e xcess calories Chelsea Macias NP Plan of Treatment 08/11/2020 - Chelsea Macias NP* E11.22 Type 2 diabetes mellitus with diabetic chronic kidney disease* New Labs:* Hemoglobin A1c, Ordered: 08/11/20 * Glucose, Ordered: 08/11/20 * Comments:* 08/11/2020-- in office A1c= 8.1% (7.8%, 7.3%, 7.8%, 7.2%, 6.8%, 7.5%, 6.7%, 7.2%,7.2%). Random BS= 173 Meter downloaded and reviewed with patient- fasting- 155-299, lunch- 127-289, dinner- 119-328, bedtime- 109-332 Reviewed diet- still drinking at night- goes to bed around 12-1amThis was today: Breakfast: 5am- ham slice- took Novolog- took went back to bed at 6am- took 45 units [id number]- BS 155- 2 cups coffee- splenda and creamer- Took Novolog Went back to bed at 11amGot up at 1pm- BS >200- took Novolog 14 units at 1:30pm PT admits that he buys convenient canned goods- veggies, beefaroni etcCurrently: Basaglar 45 units BID, Novolog- per sliding scale- breakfast- - 20u units, dinner- 20u, May take insulin if BS >250 at bedtime= 20 units. Metformin 500mg po BID, Trulicity 1.5mg weekly- stopped due to abdominal bloating Cannot use SGLT-2 due to low renal function. Needs more consistent diet- eating 3 meals per day at regular times. Take Novolog 15 mins prior to meals. Will increase Basaglar 55units qam, 50 units qhs. Call with any lo/hi trendsRTO 3 months * Follow up:* 3 months ROSSY/CBF * N18.30 Chronic kidney disease, stage 3 unspecified* Comments:* Pt has solitary kidneyLow GFR limits potential for other oral medications.Nephrology notes reviewed 08/03/2020. Labs done 08/03/2020- per nephrology- Scr= 1.6, GFR= 44 * E78.2 Mixed hyperlipidemia* Comments:* Goal for LDL< 70 due to CAD and DM. Labs done 03/08/18- chol= 142, Trig= 369, LDL= 45, HDL= 23- stableOn Crestor 10mg po qd Labs done 06/04/19- chol= 194, Trig= 453, HDL= 28, LDL= 166 * I10 Essential (primary) hypertension* Comments:* On ANA. Lisinopril 10mg po qd. BP 122/74 * E66.01 Morbid (severe) obesity due to excess calories* Comments:* calorie restriction. Unable to exercise due to back issues. Has gained 3 lbs since last visit. * All * New Medication:* Bumetanide 2 mg - 1 po bid Functional Status Description No Information Available Mental Status Description No Information Available Referrals Description No Information Available
--- OUTSIDE RECORDS SUMMARY | 2020-09-16 13:22 | CCD | Continuity of Care Document ---
Author Author Jay MACIAS BOOKMOBILE CLERK Organization Unknown Address [address] [place] [address] Phone [phone] Care Team Providers Care Graphic Design Assistant Name Role Phone Cami Art NORTH AUTM [phone] Valente Crawford AUTM Problems Description No Information [...] SIG Qnty Indications Ordering Provide r Date BD Pen Needle/Micro/Ultra-Fine/32G X 6mm 32G X [...] day 180tabs E11.22 Chelsea mcclain NP 10/16/2018 Bumetanide 1mg Tablets 1 po b id Unknown Alpha Lipoic Acid 200mg Capsules 1 po qd Unknown Gabapentin 600mg Tablets 1 po tid Unknown Novolog 100Unit/ML Solution inject subcutaneously as directed per sliding scale Unk nown Tylenol 325mg Tablets 1 or 2 every 6 hours prn/pain Unknown Colace 100mg Capsules 1 by mouth twice a day, hold for diarrhea Unknown 0 Basaglar Kwikpen 100 Unit/ML Solution Pen-Inject 80 units every at bedtime 45ml Chelsea Macias NP Magnesium [...] 12HR 1 po bid Unknown Calcium 600+D [id number] Table ts 1 by mouth bid Unknown [...] Available Vital Signs Date Vital Result Comment 07/09/2020 3:07pm BP Systolic 124 mmHg BP Diastolic 80 mmHg Heart Rate 95 /min Body Temperature 97.8 F Height 64.75 inches 5'4.75" Weight 248.44 lb BMI (Body Mass Index) 41.7 kg/m2 O2 % BldC Oximetry 99 % 05/12/2020 12:57pm BP Systolic 122 mmHg BP Diastolic 86 mmHg Heart Rate 93 /min Height 64.75 inches 5'4.75" Weight 247.00 lb BMI (Body Mass Index) 41.4 kg/m2 O2 % BldC Oximetry 97 % Results Test Acquired Date Facility Test Result H/L Range Note Laboratory test finding 05/12/2020 In House Glucose 133 Hemoglobin A1c 7.8 Procedures Date Code Description Status 08/09/2019 [id number] Diabetic Foot Exam Completed Medical Devices Description No Information Available Encounters Type Date Location Provider Dx Diagnosis Office Visit 07/09/2020 3:00p DR. Shira Macias, [...] obesity due to excess calories Office Visit 02/10/2020 10:30a DR. 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 N18.3 Chronic kidney disease, stag e 3 (moderate) E78.2 Mixed hyperlipidemia I10 Essential (primary) hyperten sal E66.01 Morbid (severe) obesity due to excess calories Assessments Date Code Description Provider 07/09/2020 E11.22 Type 2 diabetes mellitus with di abetic chronic kidney disease Chelsea Macias NP 07/09/2020 N18.30 Chronic kidney disease, stage 3 unspecified Chelsea Macias NP 07/09/2020 E78.2 Mixed hyperlipidemia Chelsea mcclain NP 07/09/2020 I10 Essential (primary) hypertension Chelsea Macias NP 07/09/2020 E66.01 Morbid (severe) obesity due to e xcess calories Chelsea Macias NP 05/12/2020 E11.22 Type 2 diabetes mellitus with di abetic chronic kidney diseas Chelsea Macias, BOOKMOBILE CLERK 05/12/2020 N18.3 Chronic kidney disease, stage 3 (moderate) Chelsea Macias, BOOKMOBILE CLERK 05/12/2020 E78.2 Mixed hyperlipidemia Chelsea mcclain, BOOKMOBILE CLERK 05/12/2020 I10 Essential (primary) hypertension Chelsea Macias, BOOKMOBILE CLERK 05/12/2020 E66.01 Morbid (severe) obesity due to e xcess calories Chelsea Macias, FABRICIO 02/10/2020 E11.22 Type 2 diabetes mellitus with di abetic chronic kidney diseas Chelsea Macias, BOOKMOBILE CLERK 02/10/2020 N18.3 Chronic kidney disease, stage 3 (moderate) Chelsea Macias, BOOKMOBILE CLERK 02/10/2020 E78.2 Mixed hyperlipidemia Chelsea mcclain, BOOKMOBILE CLERK 02/10/2020 I10 Essential (primary) hypertension Chelsea Macias, BOOKMOBILE CLERK 02/10/2020 E66.01 Morbid (severe) obesity due to e xcess calories Chelsea Macias NP Plan of Treatment Future Appointment(s):* 08/13/2020 2:45 pm - Chelsea Macias NP at DR. Shira Powers * 08/11/2020 2:15 pm - Chelsea Macias NP at DR. Shira Powers 07/09/2020 - Chelsea Macias NP* E11.22 Type 2 diabetes mellitus with diabetic chronic kidney disease* Comments:* 05/12/2020-- in office A1c= 7.8% (7.3%, 7.8%, 7.2%, 6.8%, 7.5%, 6.7%, 7.2%,7.2%). Random BS= 133 Pt called office concerned over BS >300- see triage 07/07/2020Meter downloaded and reviewed with patient- fasting- 127-403, lunch- 973[address], dinner- 119-332 Currently: Basaglar 80units qhs, Novolog- per sliding scale- breakfast- -20u units, dinner- 20u, May take insulin if BS >250 at bedtime= 20 units. Metformin 500mg po BID, Trulicity 1.5mg weekly- stopped due to abdominal bloating Reviewed diet- pt cooks for selfStates has decreased ETOH use. Is back on whiskey- still drinking every day. Cannot use SGLT-2 due to low renal function. Feel his variation of blood sugar has more to do with diet, drinking and daily routine. Will split Basaglar 45 units BIDGiven new insulin instruction sheet with new sliding scale. RTO 1 month * Follow up:* 1 month ROSSY/CBF * N18.30 Chronic kidney disease, stage 3 unspecified* Comments:* Pt has solitary kidneyLow GFR limits potential for other oral medications.Nephrology notes reviewed 04/02/2020. Labs done 04/02/2020- per nephrology- Scr= 1.53, GFR= 46 * E78.2 Mixed hyperlipidemia* Comments:* Goal for LDL< 70 due to CAD and DM. Labs done 03/08/18- chol= 142, Trig= 369, LDL= 45, HDL= 23- stableOn Crestor 10mg po qd Labs done 06/04/19- chol= 194, Trig= 453, HDL= 28, LDL= 166 * I10 Essential (primary) hypertension* Comments:* On ANA. Lisinopril 10mg po qd. BP 124/80 * E66.01 Morbid (severe) obesity due to excess calories* Comments:* calorie restriction. Unable to exercise due to back issues. Has gained 1 lb since last visit. Functional Status Description No Information Available Mental Status Description No Information Available Referrals Description No Information Available
--- OUTSIDE RECORDS SUMMARY | 2020-09-16 13:22 | CCD | Continuity of Care Document ---
Author Author Jay MACIAS RETIREMENT VILLAGE MANAGER Organization Unknown Address [address] [place] [address] Phone [phone] Care Team Providers Care Deputy Sheriff Building Guard Name Role Phone Cami Art NORTH AUTM [phone] Valente Crawford AUTM Problems Description No Information [...] 12HR 1 po bid Unknown Calcium 600+D [id number] Table ts 1 by mouth bid Unknown [...] 7.8 Procedures Date Code Description Status 08/09/2019 [id number] Diabetic Foot Exam Completed Medical Devices Description [...] di abetic chronic kidney diseas Chelsea Macias, RETIREMENT VILLAGE MANAGER 05/12/2020 N18.3 Chronic kidney disease, stage 3 (moderate) Chelsea Macias, RETIREMENT VILLAGE MANAGER 05/12/2020 E78.2 Mixed hyperlipidemia Chelsea mcclain, RETIREMENT VILLAGE MANAGER 05/12/2020 I10 Essential (primary) hypertension Chelsea Macias, RETIREMENT VILLAGE MANAGER 05/12/2020 E66.01 Morbid (severe) obesity due to e xcess calories Chelsea Macias, FABRICIO 02/10/2020 E11.22 Type 2 diabetes mellitus with di abetic chronic kidney diseas Chelsea Macias, RETIREMENT VILLAGE MANAGER 02/10/2020 N18.3 Chronic kidney disease, stage 3 (moderate) Chelsea Macias, RETIREMENT VILLAGE MANAGER 02/10/2020 E78.2 Mixed hyperlipidemia Chelsea mcclain, RETIREMENT VILLAGE MANAGER 02/10/2020 I10 Essential (primary) hypertension Chelsea Macias, RETIREMENT VILLAGE MANAGER 02/10/2020 E66.01 Morbid (severe) obesity due to e xcess calories Chelsea Macias NP Plan of Treatment Future Appointment(s):* 08/11/2020 2:15 pm - Chelsea Macias NP at DR. Shira Powers 07/09/2020 - Chelsea Macias NP* E11.22 Type 2 diabetes mellitus with diabetic chronic kidney disease* Comments:* 05/12/2020-- in office A1c= 7.8% (7.3%, 7.8%, 7.2%, 6.8%, 7.5%, 6.7%, 7.2%,7.2%). Random BS= 133 Pt called office concerned over BS >300- see triage 07/07/2020Meter downloaded and reviewed with patient- fasting- 127403, lunch- 97317, dinner- 119332 Currently: Basaglar 80units qhs, Novolog- per sliding [...]
--- OUTSIDE RECORDS SUMMARY | 2020-09-16 13:22 | CCD ---
Author Author [facility] Address Unknown Phone Unavailable Care Team Providers Care Cooler Supervisor Name Role Phone COOK, B JULIANA SHEET METAL DUCT WORKER SUPERVISOR Unavailable Unavailable COOK, B JULIANA SHEET METAL DUCT WORKER SUPERVISOR Unavailable Unavailable COOK, B JULIANA SHEET METAL DUCT WORKER SUPERVISOR Unavailable Unavailable COOK, B JULIANA SHEET METAL DUCT WORKER SUPERVISOR Unavailable Unavailable COOK, B JULIANA SHEET METAL DUCT WORKER SUPERVISOR Unavailable Unavailable COOK, B JULIAAN SHEET METAL DUCT WORKER SUPERVISOR Unavailable Unavailable COOK, B JULIANA SHEET METAL DUCT WORKER SUPERVISOR Unavailable Unavailable COOK, B JULIAAN SHEET METAL DUCT WORKER SUPERVISOR Unavailable Unavailable COOK, B JULIANA SHEET METAL DUCT WORKER SUPERVISOR Unavailable Unavailable COOK, B JULIANA SHEET METAL DUCT WORKER SUPERVISOR Unavailable Unavailable COOK, B JULIANA SHEET METAL DUCT WORKER SUPERVISOR Unavailable Unavailable COOK, B JULIANA SHEET METAL DUCT WORKER SUPERVISOR Unavailable Unavailable COOK, B JULIANA SHEET METAL DUCT WORKER SUPERVISOR Unavailable Unavailable COOK, B JULIANA SHEET METAL DUCT WORKER SUPERVISOR Unavailable Unavailable COOK, B JULIANA SHEET METAL DUCT WORKER SUPERVISOR Unavailable Unavailable COOK, B JULIANA SHEET METAL DUCT WORKER SUPERVISOR Unavailable Unavailable COOK, B JULIANA SHEET METAL DUCT WORKER SUPERVISOR Unavailable Unavailable COOK, B JULIANA SHEET METAL DUCT WORKER SUPERVISOR Unavailable Unavailable COOK, B JULIANA SHEET METAL DUCT WORKER SUPERVISOR Unavailable Unavailable COOK, B JULIANA SHEET METAL DUCT WORKER SUPERVISOR Unavailable Unavailable COOK, B JULIANA SHEET METAL DUCT WORKER SUPERVISOR Unavailable Unavailable COOK, B JULIANA SHEET METAL DUCT WORKER SUPERVISOR Unavailable Unavailable COOK, B JULIANA SHEET METAL DUCT WORKER SUPERVISOR Unavailable Unavailable COOK, B JULIANA SHEET METAL DUCT WORKER SUPERVISOR Unavailable Unavailable COOK, B JULIANA SHEET METAL DUCT WORKER SUPERVISOR Unavailable Unavailable COOK, B JULIANA SHEET METAL DUCT WORKER SUPERVISOR Unavailable Unavailable COOK, B JULIANA SHEET METAL DUCT WORKER SUPERVISOR Unavailable Unavailable COOK, B JULIANA SHEET METAL DUCT WORKER SUPERVISOR Unavailable Unavailable COOK, B JULIANA SHEET METAL DUCT WORKER SUPERVISOR Unavailable Unavailable COOK, B JULIANA SHEET METAL DUCT WORKER SUPERVISOR Unavailable Unavailable COOK, B JULIANA SHEET METAL DUCT WORKER SUPERVISOR Unavailable Unavailable COOK, B JULIANA SHEET METAL DUCT WORKER SUPERVISOR Unavailable Unavailable COOK, B JULIANA SHEET METAL DUCT WORKER SUPERVISOR Unavailable Unavailable COOK, B JULIANA SHEET METAL DUCT WORKER SUPERVISOR Unavailable Unavailable COOK, B JULIANA SHEET METAL DUCT WORKER SUPERVISOR Unavailable Unavailable COOK, B JULIANA SHEET METAL DUCT WORKER SUPERVISOR Unavailable Unavailable COOK, B JULIANA SHEET METAL DUCT WORKER SUPERVISOR Unavailable Unavailable COOK, B JULIANA SHEET METAL DUCT WORKER SUPERVISOR Unavailable Unavailable COOK, B JULIANA SHEET METAL DUCT WORKER SUPERVISOR Unavailable Unavailable COOK, B JULIANA SHEET METAL DUCT WORKER SUPERVISOR Unavailable Unavailable COOK, B JULIANA SHEET METAL DUCT WORKER SUPERVISOR Unavailable Unavailable COOK, B JULIANA SHEET METAL DUCT WORKER SUPERVISOR Unavailable Unavailable COOK, B JULIANA SHEET METAL DUCT WORKER SUPERVISOR Unavailable Unavailable COOK, B JULIANA SHEET METAL DUCT WORKER SUPERVISOR Unavailable Unavailable COOK, B JULIANA SHEET METAL DUCT WORKER SUPERVISOR Unavailable Unavailable COOK, B JULIANA SHEET METAL DUCT WORKER SUPERVISOR Unavailable Unavailable COOK, B JULIANA SHEET METAL DUCT WORKER SUPERVISOR Unavailable Unavailable COOK, B JULIANA SHEET METAL DUCT WORKER SUPERVISOR Unavailable Unavailable COOK, B JULIANA SHEET METAL DUCT WORKER SUPERVISOR Unavailable Unavailable COOK, B JULIANA SHEET METAL DUCT WORKER SUPERVISOR Unavailable Unavailable COOK, B JULIANA SHEET METAL DUCT WORKER SUPERVISOR Unavailable Unavailable COOK, B JULIANA SHEET METAL DUCT WORKER SUPERVISOR Unavailable Unavailable COOK, B JULIANA SHEET METAL DUCT WORKER SUPERVISOR Unavailable Unavailable COOK, B JULIANA SHEET METAL DUCT WORKER SUPERVISOR Unavailable Unavailable COOK, B JULIANA SHEET METAL DUCT WORKER SUPERVISOR Unavailable Unavailable COOK, B JULIANA SHEET METAL DUCT WORKER SUPERVISOR Unavailable Unavailable COOK, B JULIANA SHEET METAL DUCT WORKER SUPERVISOR Unavailable Unavailable COOK, B JULIANA SHEET METAL DUCT WORKER SUPERVISOR Unavailable Unavailable COOK, B JULIANA SHEET METAL DUCT WORKER SUPERVISOR Unavailable Unavailable COOK, B JULIANA SHEET METAL DUCT WORKER SUPERVISOR Unavailable Unavailable COOK, B JULIANA SHEET METAL DUCT WORKER SUPERVISOR Unavailable Unavailable COOK, B JULIANA SHEET METAL DUCT WORKER SUPERVISOR Unavailable Unavailable COOK, B JULIANA SHEET METAL DUCT WORKER SUPERVISOR Unavailable Unavailable TONTARSKI, G STEVIE PA Unavailable Unavailable TONTARSKI, G STEVIE PA Unavailable Unavailable TONTARSKI, G STEVIE PA Unavailable Unavailable TONTARSKI, G STEVIE PA Unavailable Unavailable TONTARSKI, G STEVIE PA Unavailable Unavailable TONTARSNITISH, G STEVIE PA Unavailable Unavailable TONTARSNITISH, G STEVIE PA Unavailable Unavailable TONTARSNITISH, G STEVIE PA Unavailable Unavailable TONTARSNITISH, G STEVIE PA Unavailable Unavailable TONTARSNITISH, G STEVIE PA Unavailable Unavailable TONTARSNITISH, G STEVIE PA Unavailable Unavailable TONTARSNITISH, G STEVIE PA Unavailable Unavailable TONTARSNITISH, G STEVIE PA Unavailable Unavailable TONTARSNITISH, G STEVIE PA Unavailable Unavailable TONTARSNITISH, G STEIVE PA Unavailable Unavailable TONTARSNITISH, G STEVIE PA Unavailable Unavailable TONTARSNITISH, G STEVIE PA Unavailable Unavailable TONTARSNITISH, G STEVIE PA Unavailable Unavailable TONTARSNITISH, G STEVIE PA Unavailable Unavailable TONTARSNITISH, G STEVIE PA Unavailable Unavailable TONTARSNITISH, G STEVIE PA Unavailable Unavailable TONTARSNITISH, G STEVIE PA Unavailable Unavailable TONTARSNITISH, G STEVIE PA Unavailable Unavailable TONTARSNITISH, G STEVIE PA Unavailable Unavailable TONTARSNITISH, G STEVIE PA Unavailable Unavailable TONTARSNITISH, G STEVIE PA Unavailable Unavailable TONTARSNITISH, G STEVIE PA Unavailable Unavailable TONTARSNITISH, G STEVIE PA Unavailable Unavailable TONTARSNITISH, G STEVIE PA Unavailable Unavailable TONTARSNITISH, G STEVIE PA Unavailable Unavailable TONTARSNITISH, G STEVIE PA Unavailable Unavailable TONTARSNITISH, G STEVIE PA Unavailable Unavailable TONTARSNITISH, G STEVIE PA Unavailable Unavailable TONTARSNITISH, G STEVIE PA Unavailable Unavailable TONTARSNITISH, G STEVIE PA Unavailable Unavailable TONTARSNITISH, G STEVIE PA Unavailable Unavailable TONTARSNITISH, G STEVIE PA Unavailable Unavailable TONTARSNITISH, G STEVIE PA Unavailable Unavailable TONTARSNITISH, G STEVIE PA Unavailable Unavailable TONTARSNITISH, G STEVIE PA Unavailable Unavailable TONTARSNITISH, G STEVIE PA Unavailable Unavailable TONTARSNITISH, G STEVIE PA Unavailable Unavailable TONTARSNITISH, G STEVIE PA Unavailable Unavailable TONTARSNITISH, G STEVIE PA Unavailable Unavailable TONTARSNITISH, G STEVIE PA Unavailable Unavailable TONTARSNITISH, G STEVIE PA Unavailable Unavailable Re-disclosure Warning The records that you are about to access may contain information from federally-assisted alcohol or drug abuse programs. If such information is present, then the following federally mandated warning applies: This information has been disclosed to you from records protected by federal confidentiality rules (42 CFR part 2). The federal rules prohibit you from making any further disclosure of this information unless further disclosure is expressly permitted by the written consent of the person to whom it pertains or as otherwise permitted by 42 CFR part 2. A general authorization for the release of medical or other information is NOT sufficient for this purpose. The Federal rules restrict any use of the information to criminally investigate or prosecute any alcohol or drug abuse patient.The records that you are about to access may contain highly sensitive health information, the redisclosure of which is protected by Article 27-F of the [facility] Public Health law. If you continue you may have access to information: Regarding HIV / AIDS; Provided by facilities licensed or operated by the [facility] Office of Mental Health; or Provided by the [facility] Office for People With Developmental Disabilities. If such information is present, then the following [facility] mandated warning applies: This information has been disclosed to you from confidential records which are protected by state law. State law prohibits you from making any further disclosure of this information without the specific written consent of the person to whom it pertains, or as otherwise permitted by law. Any unauthorized further disclosure in violation of state law may result in a fine or residential sentence or both. A general authorization for the release of medical or other information is NOT sufficient authorization for further disc losure. Family History Family Member Name Family Member Gender Family Member Status Date o f Status Description Data Source(s) Unknown Unknown Problem [facility] ([facility]) Unknown Male Problem [facility] ([facility]) () - Age 69 Encounters Encounter Providers Location Date Indications Data Source(s ) Outpatient Attender: STEVIE angulo 09/02/2020 07:30:00 AM EST [facility] ([facility]) Outpatient Attender: JULIANA SO NP Physical Therapy 08/11/2020 0 1:15:00 PM EST [facility] ([facility] Outpatient Attender: JULIANA SO NP Physical Therapy 07/09/2020 0 2:00:00 PM EST [facility] ([facility]) Outpatient Attender: JULIANA SARAY SHEET METAL DUCT WORKER SUPERVISOR Physical Therapy 05/12/2020 0 1:00:00 PM EDT [facility] ([facility]) Outpatient Attender: JULIANA SARAY SHEET METAL DUCT WORKER SUPERVISOR Physical Therapy 02/10/2020 1 0:30:00 AM EDT [facility] ([facility]) Outpatient Attender: JULIANA SARAY SHEET METAL DUCT WORKER SUPERVISOR Physical Therapy 11/07/2019 0 8:45:00 AM EST [facility] ([facility]) Outpatient Attender: JULIANA SARAY SHEET METAL DUCT WORKER SUPERVISOR Physical Therapy 08/09/2019 1 0:15:00 AM EST [facility] ([facility]) Medications Medication Brand Name Start Date Product Form Dose Route Admi nistrative Instructions Pharmacy Instructions Status Indications Reaction Description Data Source(s) Bumetanide 2 MG Oral Tablet Bumetanide 08/11/2020 12:00:00 AM EST ORAL active [facility] ([facility]) 0.5 ML dulaglutide 3 MG/ML Auto-Injector [Trulicity] Trulici ty 05/12/2020 12:00:00 AM EDT SUBCUTANEOUS completed [facility] ([facility]) Ozempic (1 MG/Dose) Ozempic (1 MG/Dose) 11/07/2019 12:00:00 AM EST active [facility] ([facility]) BD Pen Needle/Micro/Ultra-Fine/32G X 6mm 08/09/2019 12:00:00 AM EST active [facility] ([facility]) Ozempic (0.25 Or 0.5 MG/Dose) Ozempic (0.25 Or 0.5 MG/Dose) 06/05/2019 12:00:00 AM EDT completed [facility] ([facility]) Insurance Providers Payer name Policy type / Coverage type Policy ID Covered republican ID Covered republican's relationship to francisco Policy Francisco Plan Information [facility] OPTIONS [id number] SP [id number] MEDICARE [id number] SP [id number] WELLCARE [id number] SP [id number] [facility] Healthcare Options [place] Part B [id number] Self [id number] [place] Primary [id number] Self [id number] [place] Primary [id number] Self [id number] [place] Medicaid/CHP/FHP Commercial [id number] Self [id number] Health & Welfare Ins (pr) Medigap Part B [id number] Self [id number] ZEV [id number] SP [id number] SP [id number] Zev Care [place] Medicaid [id number] Self [id number] Zev Medicaid/CHP/FHP Commercial [id number] Self [id number] MEDICAID -O/P [id number] ZEV CARE OF [place] -OP [id number] 18 [id number] AETNA [place] O [id number] O [id number] AETNA [id number] [place] [id number] [employer]ETNA [place] [id number] SP [id number] AETNA-O/P [id number] 18 [id number] AETNA-O/P [id number] 18 [id number] AETNA O [id number] S [id number] [employer]ETNA [place] O [id number] S [id number] [employer]ETNA [place] [employer] [place] [id number] SP [id number] [employer] P [id number] S [id number] [employer] INSURANCE [employer] P [id number] S [id number] WORKERS COMP W/OI NFO P [id number] S [id number] [facility] P [id number] S [id number] HEALTH & WELFARE BENEFIT P [id number] S [id number] HEALTH WELFARE BENEFIT SYS [id number] SP [id number] Surgeries/Procedures Procedure Description Date Indications Data Source(s) Diabetic Foot Exam 08/09/2019 12:00:00 AM EST [facility] ([facility]) Results ID Date Data Source [id number] 08/11/2020 02:17:00 PM EST [facility] ([facility]) Name Value Range Interpretation Code Description Data Paola rce(s) Supporting Document(s) Glucose [Mass/volume] in Serum or Plasma 173 [facility] ([facility]) Hemoglobin A1c/Hemoglobin.total in Blood 8.1 [facility] ([facility]) ID Date Data Source [id number] 05/12/2020 01:36:00 PM EDT [facility] ([facility]) Name Value Range Interpretation Code Description Data Paola rce(s) Supporting Document(s) Glucose [Mass/volume] in Serum or Plasma 133 [facility] ([facility]) Hemoglobin A1c/Hemoglobin.total in Blood 7.8 [facility] ([facility]) ID Date Data Source [id number] 08/09/2019 11:07:00 AM EST [facility] ([facility]) Name Value Range Interpretation Code Description Data Paola rce(s) Supporting Document(s) Hemoglobin A1c/Hemoglobin.total in Blood 7.2 [facility] ([facility]) Glucose [Mass/volume] in Serum or Plasma 196 [facility] ([facility]) ID Date Data Source [id number] 08/09/2019 11:04:00 AM EST [facility] ([facility]) Name Value Range Interpretation Code Description Data Paola rce(s) Supporting Document(s) Glucose [Mass/volume] in Serum or Plasma 196 [facility] ([facility]) Hemoglobin A1c/Hemoglobin.total in Blood 7.2 [facility] ([facility]) ID Date Data Source [id number] 08/06/2019 10:45:00 AM EST [facility] ([facility]) Name Value Range Interpretation Code Description Data Paola rce(s) Supporting Document(s) Creatinine, Urine 45.0 mg/dL [facility]) Malb Urine Siemens 51.2 mg/L [facility] ([facility]) Ki/Creat Ratio 113.7 MCG/MG 0.0-30.0 [facility] ([facility]) THE [employer] STATES THAT MICROALBUMINURIA IS PRESENT IF THE MICROALBUMIN/CREATININE RATIO EXCEEDS 30 MCG/MG. THE THRESHOLD FOR CLINICAL ALBUMINURIA IS REACHED AT 300 MCG/MG. THE CLASSIFICATION OF A PATIENT SHOULD BE BASED UPON AT LEAST 2 OF 3 ABNORMAL RESULTS ON SPECIMENS COLLECTED WITHIN A 3 TO 6 MONTH TIME FRAME. Procedure Vital Signs ID Date Data Source UNK Name Value Range Interpretation Code Description Data Source(s) Oxygen saturation in Arterial blood by Pulse oximetry 98 % 98 % [facility] ([facility]) Body mass index (BMI) [Ratio] 42.3 kg/m2 42.3 k g/m2 [facility] ([facility] ) Body weight 252.00 [lb_av] 252.00 [lb_av] [facility] T ([facility] ) Body height 64.75 [in_i] 64.75 [in_i] [facility] ([facility]) 5'4.75" Body temperature 96.8 [degF] 96.8 [degF] [facility] ([facility] ) Heart rate 89 /min 89 /min [facility] ([facility] ) Diastolic blood pressure 74 mm[Hg] 74 mm[Hg] [facility] ([facility] ) Systolic blood pressure 122 mm[Hg] 122 mm[Hg] M EDENT ([facility] ) Oxygen saturation in Arterial blood by Pulse oximetry 99 % 99 % [facility] ([facility] ) Body mass index (BMI) [Ratio] 41.7 kg/m2 41.7 k g/m2 [facility] ([facility] ) Body weight 248.44 [lb_av] 248.44 [lb_av] [facility] T ([facility] ) Body height 64.75 [in_i] 64.75 [in_i] [facility] ([facility]) 5'4.75" Body temperature 97.8 [degF] 97.8 [degF] [facility] ([facility] ) Heart rate 95 /min 95 /min [facility] ([facility] ) Diastolic blood pressure 80 mm[Hg] 80 mm[Hg] [facility] ([facility]) Systolic blood pressure 124 mm[Hg] 124 mm[Hg] M EDENT ([facility] ) Oxygen saturation in Arterial blood by Pulse oximetry 97 % 97 % [facility] ([facility] ) Body mass index (BMI) [Ratio] 41.4 kg/m2 41.4 k g/m2 [facility] ([facility] ) Body weight 247.00 [lb_av] 247.00 [lb_av] [facility] T ([facility] ) Body height 64.75 [in_i] 64.75 [in_i] [facility] ([facility]) 5'4.75" Heart rate 93 /min 93 /min [facility] ([facility] ) Diastolic blood pressure 86 mm[Hg] 86 mm[Hg] [facility] ([facility]) Systolic blood pressure 122 mm[Hg] 122 mm[Hg] M EDENT ([facility]) Oxygen saturation in Arterial blood by Pulse oximetry 94 % 94 % [facility] ([facility]) Body mass index (BMI) [Ratio] 41.2 kg/m2 41.2 k g/m2 [facility] ([facility]) Body weight 246.00 [lb_av] 246.00 [lb_av] [facility] T ([facility]) Body height 64.75 [in_i] 64.75 [in_i] [facility] ([facility]) 5'4.75" Heart rate 103 /min 103 /min [facility] ([facility]) Diastolic blood pressure 70 mm[Hg] 70 mm[Hg] [facility] ([facility]) Systolic blood pressure 120 mm[Hg] 120 mm[Hg] M EDENT ([facility]) Body mass index (BMI) [Ratio] 41.2 kg/m2 41.2 k g/m2 [facility] ([facility]) Body weight 246.00 [lb_av] 246.00 [lb_av] [facility] T ([facility]) Body height 64.75 [in_i] 64.75 [in_i] [facility] ([facility]) 5'4.75" Heart rate 86 /min 86 /min [facility] ([facility]) Diastolic blood pressure 70 mm[Hg] 70 mm[Hg] [facility] ([facility]) Systolic blood pressure 118 mm[Hg] 118 mm[Hg] M EDENT ([facility]) Oxygen saturation in Arterial blood by Pulse oximetry 97 % 97 % [facility] ([facility]) Body mass index (BMI) [Ratio] 40.2 kg/m2 40.2 k g/m2 [facility] ([facility]) Body weight 240.00 [lb_av] 240.00 [lb_av] [facility] T ([facility]) Body height 64.75 [in_i] 64.75 [in_i] [facility] ([facility]) 5'4.75" Heart rate 86 /min 86 /min [facility] ([facility]) Diastolic blood pressure 78 mm[Hg] 78 mm[Hg] [facility] ([facility]) Systolic blood pressure 120 mm[Hg] 120 mm[Hg] M [facility] ([facility])
--- OUTSIDE RECORDS SUMMARY | 2020-09-16 13:22 | CCD | Continuity of Care Document ---
Author Author [facility] Organization Unknown Address [address] [place] [id number] Phone [phone] Care Team Providers Care Binding End Stitcher Name Role Phone Molly Artjessica KAT AUTM [phone] Valente Crawford AUTM [phone] Problems Description No Information Available Social History [...] 12HR 1 po bid Unknown Calcium 600+D [id number] Table ts 1 by mouth bid Unknown [...] 7.8 Procedures Date Code Description Status 08/09/2019 [id number] Diabetic Foot Exam Completed Medical Devices Description No Information Available Encounters Type Date Location Provider Dx Diagnosis Office Visit 08/11/2020 2:15p DR. Shira Macias, [facility] E1 1.22 Type 2 diabetes mellitus w [...] Chronic kidney disease, stage 3 unspecified Chelsea Macias, FABRICIO 07/09/2020 E78.2 Mixed hyperlipidemia Chelsea mcclain, FABRICIO 07/09/2020 I10 Essential (primary) hypertension Chelsea Macias, FABRICIO 07/09/2020 E66.01 Morbid (severe) obesity due to e xcess calories Chelsea Macias, FABRICIO 05/12/2020 E11.22 Type 2 diabetes mellitus with di abetic chronic kidney diseas Chelsea Macias, FABRICIO 05/12/2020 N18.3 Chronic kidney disease, stage 3 (moderate) Chelsea Macias, FABRICIO 05/12/2020 E78.2 Mixed hyperlipidemia Chelsea mcclain, FABRICIO 05/12/2020 I10 Essential (primary) hypertension Chelsea Macias, FABRICIO 05/12/2020 E66.01 Morbid (severe) obesity due to e xcess calories Chelsea Macias NP Plan of Treatment Future Appointment(s):* 11/10/2020 1:15 pm - Chelsea Macias NP at DR. Shira Powers 08/11/2020 - Chelsea Macias NP* E11.22 Type [...] to bed at 6am- took 45 units [id number] 155- 2 cups coffee- splenda and [...]
[2020-09-16] MEDS ORDERED: ACETAMINOPHEN TAB 650MG DOSE (2X325MG) PO ONE (16:15)
--- NOTE | 2020-09-16 17:06 | REP ---
INDICATION: neck pain radiates to shoulder. COMPARISON: 06/28/2017. TECHNIQUE: Eight views cervical spine performed. FINDINGS: C7 vertebral body cannot be visualized due to overlying soft tissues. Otherwise no compression fractures seen of the remaining cervical vertebral bodies. There is no malalignment. There is no prevertebral soft tissue swelling. There is a bridging osteophyte at C2-3. There is moderate spurring of C3 through C6. There is moderate disc space narrowing and subchondral sclerosis at C3-4 with mild disc space narrowing at C4-5. There is diffuse narrowing, sclerosis and spurring at the posterior facet joints. There is bilateral foraminal narrowing at multiple levels. IMPRESSION: C7 is not visualized but otherwise no evidence of acute fracture or dislocation. Moderate arthritic changes. <Electronically signed by Jean Sebastian > 09/16/20 2106
--- OUTSIDE RECORDS SUMMARY | 2020-09-16 17:10 | CCD ---
Author Author [facility] Address Unknown Phone Unavailable Care Team Providers Care Veterans Employment Representative Name Role Phone COOK, B JULIANA EMBROIDERY MACHINE OPERATOR Unavailable Unavailable COOK, B JULIANA EMBROIDERY MACHINE OPERATOR Unavailable Unavailable COOK, B JULIANA EMBROIDERY MACHINE OPERATOR Unavailable Unavailable COOK, B JULIANA EMBROIDERY MACHINE OPERATOR Unavailable Unavailable COOK, B JULIANA EMBROIDERY MACHINE OPERATOR Unavailable Unavailable COOK, B JULIANA EMBROIDERY MACHINE OPERATOR Unavailable Unavailable COOK, B JULIANA EMBROIDERY MACHINE OPERATOR Unavailable Unavailable COOK, B JULIANA EMBROIDERY MACHINE OPERATOR Unavailable Unavailable COOK, B JULIANA EMBROIDERY MACHINE OPERATOR Unavailable Unavailable COOK, B JULIANA EMBROIDERY MACHINE OPERATOR Unavailable Unavailable COOK, B JULIANA EMBROIDERY MACHINE OPERATOR Unavailable Unavailable COOK, B JULIANA EMBROIDERY MACHINE OPERATOR Unavailable Unavailable COOK, B JULIANA EMBROIDERY MACHINE OPERATOR Unavailable Unavailable COOK, B JULIANA EMBROIDERY MACHINE OPERATOR Unavailable Unavailable COOK, B JULIANA EMBROIDERY MACHINE OPERATOR Unavailable Unavailable COOK, B JULIANA EMBROIDERY MACHINE OPERATOR Unavailable Unavailable COOK, B JULIANA EMBROIDERY MACHINE OPERATOR Unavailable Unavailable COOK, B JULIANA EMBROIDERY MACHINE OPERATOR Unavailable Unavailable COOK, B JULIANA EMBROIDERY MACHINE OPERATOR Unavailable Unavailable COOK, B JULIANA EMBROIDERY MACHINE OPERATOR Unavailable Unavailable COOK, B JULIANA EMBROIDERY MACHINE OPERATOR Unavailable Unavailable COOK, B JULIANA EMBROIDERY MACHINE OPERATOR Unavailable Unavailable COOK, B JULIANA EMBROIDERY MACHINE OPERATOR Unavailable Unavailable COOK, B JULIANA EMBROIDERY MACHINE OPERATOR Unavailable Unavailable COOK, B JULIANA EMBROIDERY MACHINE OPERATOR Unavailable Unavailable COOK, B JULIANA EMBROIDERY MACHINE OPERATOR Unavailable Unavailable COOK, B JULIANA EMBROIDERY MACHINE OPERATOR Unavailable Unavailable COOK, B JULIANA EMBROIDERY MACHINE OPERATOR Unavailable Unavailable COOK, B JULIANA EMBROIDERY MACHINE OPERATOR Unavailable Unavailable COOK, B JULIANA EMBROIDERY MACHINE OPERATOR Unavailable Unavailable COOK, B JULIANA EMBROIDERY MACHINE OPERATOR Unavailable Unavailable COOK, B JULIANA EMBROIDERY MACHINE OPERATOR Unavailable Unavailable COOK, B JULIANA EMBROIDERY MACHINE OPERATOR Unavailable Unavailable COOK, B JULIANA EMBROIDERY MACHINE OPERATOR Unavailable Unavailable COOK, B JULIANA EMBROIDERY MACHINE OPERATOR Unavailable Unavailable COOK, B JULIANA EMBROIDERY MACHINE OPERATOR Unavailable Unavailable COOK, B JULIANA EMBROIDERY MACHINE OPERATOR Unavailable Unavailable COOK, B JULIANA EMBROIDERY MACHINE OPERATOR Unavailable Unavailable COOK, B JULIANA EMBROIDERY MACHINE OPERATOR Unavailable Unavailable COOK, B JULIANA EMBROIDERY MACHINE OPERATOR Unavailable Unavailable COOK, B JULIANA EMBROIDERY MACHINE OPERATOR Unavailable Unavailable COOK, B JULIANA EMBROIDERY MACHINE OPERATOR Unavailable Unavailable COOK, B JULIANA EMBROIDERY MACHINE OPERATOR Unavailable Unavailable COOK, B JULIANA EMBROIDERY MACHINE OPERATOR Unavailable Unavailable COOK, B JULIANA EMBROIDERY MACHINE OPERATOR Unavailable Unavailable COOK, B JULIANA EMBROIDERY MACHINE OPERATOR Unavailable Unavailable COOK, B JULIANA EMBROIDERY MACHINE OPERATOR Unavailable Unavailable COOK, B JULIANA EMBROIDERY MACHINE OPERATOR Unavailable Unavailable COOK, B JULIANA EMBROIDERY MACHINE OPERATOR Unavailable Unavailable COOK, B JULIANA EMBROIDERY MACHINE OPERATOR Unavailable Unavailable COOK, B JULIANA EMBROIDERY MACHINE OPERATOR Unavailable Unavailable COOK, B JULIANA EMBROIDERY MACHINE OPERATOR Unavailable Unavailable COOK, B JULIANA EMBROIDERY MACHINE OPERATOR Unavailable Unavailable COOK, B JULIANA EMBROIDERY MACHINE OPERATOR Unavailable Unavailable COOK, B JULIANA EMBROIDERY MACHINE OPERATOR Unavailable Unavailable COOK, B JULIANA EMBROIDERY MACHINE OPERATOR Unavailable Unavailable COOK, B JULIANA EMBROIDERY MACHINE OPERATOR Unavailable Unavailable COOK, B JULIANA EMBROIDERY MACHINE OPERATOR Unavailable Unavailable COOK, B JULIANA EMBROIDERY MACHINE OPERATOR Unavailable Unavailable COOK, B JULIANA EMBROIDERY MACHINE OPERATOR Unavailable Unavailable COOK, B JULIANA EMBROIDERY MACHINE OPERATOR Unavailable Unavailable COOK, B JULIANA EMBROIDERY MACHINE OPERATOR Unavailable Unavailable COOK, B JULIANA EMBROIDERY MACHINE OPERATOR Unavailable Unavailable TONTARSKI, G STEVIE PA Unavailable Unavailable TONTARSKI, G STEVIE PA Unavailable Unavailable TONTARSKI, G STEVIE PA Unavailable Unavailable TONTARSKI, G STEVIE PA Unavailable Unavailable TONTARSKI, G STEVIE PA Unavailable Unavailable TONTARSNITISH, G STEVIE PA Unavailable Unavailable TONTARSNITISH, G STEVIE PA Unavailable Unavailable TONTARSNITISH, G STEVEI PA Unavailable Unavailable TONTARSNITISH, G STEVIE PA [...] G STEVIE PA Unavailable Unavailable TONTARSNITISH, G STVEIE PA Unavailable Unavailable TONTARSNITISH, G STEVIE PA Unavailable Unavailable TONTARSNITISH, G STEVIE PA Unavailable Unavailable TONTARSNITISH, G STEVIE PA Unavailable Unavailable TONTARSNITISH, G STEVIE PA Unavailable Unavailable TONTARSNIITSH, G STEVIE PA Unavailable Unavailable TONTARSNITISH, G [...] is protected by Article 27-F of the [facility] Public Health law. If you continue you may have access to information: Regarding HIV / AIDS; Provided by facilities licensed or operated by the [facility] Office of Mental Health; or Provided by the [facility] Office for People With Developmental Disabilities. If such information is present, then the following [facility] mandated warning applies: This information has [...] law may result in a fine or mcc sentence or both. A general authorization for the release of medical or other information is NOT sufficient authorization for further disc losure. Family History Family Member Name Family Member Gender Family Member Status Date o f Status Description Data Source(s) Unknown Unknown Problem [facility] ([facility]) Unknown Male Problem [facility] ([facility]) () - Age 69 Encounters Encounter Providers Location Date Indications Data Source(s ) Outpatient Attender: STEVIE angulo 09/02/2020 07:30:00 AM EST [facility] ([facility]) Outpatient Attender: JULIANA SO NP Physical Therapy 08/11/2020 0 1:15:00 PM EST [facility] ([facility] ) Outpatient Attender: JULIANA SO NP Physical Therapy 07/09/2020 0 2:00:00 PM EST [facility] ([facility]) Outpatient Attender: JULIANA SARAY EMBROIDERY MACHINE OPERATOR Physical Therapy 05/12/2020 0 1:00:00 PM EDT [facility] ([facility]) Outpatient Attender: JULIANA SARAY EMBROIDERY MACHINE OPERATOR Physical Therapy 02/10/2020 1 0:30:00 AM EDT [facility] ([facility]) Outpatient Attender: JULIANA SARAY EMBROIDERY MACHINE OPERATOR Physical Therapy 11/07/2019 0 8:45:00 AM EST [facility] ([facility]) Outpatient Attender: JULIANA SARAY EMBROIDERY MACHINE OPERATOR Physical Therapy 08/09/2019 1 0:15:00 AM EST [facility] ([facility]) Medications Medication Brand Name Start Date Product Form Dose Route Admi nistrative Instructions Pharmacy Instructions Status Indications Reaction Description Data Source(s) Bumetanide 2 MG Oral Tablet Bumetanide 08/11/2020 12:00:00 AM EST ORAL active [facility] ([facility]) 0.5 ML dulaglutide 3 MG/ML Auto-Injector [Trulicity] Trulici ty 05/12/2020 12:00:00 AM EDT SUBCUTANEOUS completed [facility] ([facility]) Ozempic (1 MG/Dose) Ozempic (1 MG/Dose) 11/07/2019 12:00:00 AM EST active [facility] ([facility]) BD Pen Needle/Micro/Ultra-Fine/32G X 6mm 08/09/2019 12:00:00 AM EST active [facility] ([facility]) Ozempic (0.25 Or 0.5 MG/Dose) Ozempic (0.25 Or 0.5 MG/Dose) 06/05/2019 12:00:00 AM EDT completed [facility] ([facility]) Insurance Providers Payer name Policy type / Coverage type Policy ID Covered constitution party ID Covered constitution party's relationship to francisco Policy [place] Plan Information [facility] OPTIONS [id number] SP [id number] MEDICARE [id number] SP [id number] WELLCARE [id number] SP [id number] [facility] Healthcare Options Medienterprise Part B [id number] Self [id number] [place] Primary [id number] Self [id number] [place] Primary [id number] Self [id number] [place] Medicaid/CHP/FHP Commercial [id number] Self [id number] Health & Welfare Ins (pr) Medigap Part B [id number] Self [id number] ZEV [id number] SP [id number] SP [id number] Zev Care [place] Medicaid [id number] Self [id number] Zev Medicaid/CHP/FHP Commercial [id number] Self [id number] MEDICAID -O/P [id number] ZEV CARE OF [place] -OP [id number] 18 [id number] [place] [id number] O [id number] AETNA [id number] [place] [id number] [place] [id number] SP [id number] AETNA-O/P [id number] 18 [id number] AETNA-O/P [id number] 18 [id number] AETNA O [id number] S [id number] [place] [id number] S [id number] [employer] [place] [id number] SP [id number] [employer] P [id number] S [id number] [employer] P [id number] S [id number] WORKERS COMP W/OI NFO P [id number] S [id number] [facility] P [id number] S [id number] HEALTH & WELFARE BENEFIT P [id number] S [id number] HEALTH WELFARE BENEFIT SYS [id number] SP [id number] Surgeries/Procedures Procedure Description Date Indications Data Source(s) Diabetic Foot Exam 08/09/2019 12:00:00 AM EST [facility] ([facility]) Results ID Date Data Source [id number] 08/11/2020 02:17:00 PM EST [facility] ([facility]) Name Value Range Interpretation Code Description Data Paola rce(s) Supporting Document(s) Glucose [Mass/volume] in Serum or Plasma 173 [facility] ([facility]) Hemoglobin A1c/Hemoglobin.total in Blood 8.1 [facility] ([facility]) ID Date Data Source [id number] 05/12/2020 01:36:00 PM EDT [facility] ([facility]) Name Value Range Interpretation Code Description Data Paola rce(s) Supporting Document(s) Glucose [Mass/volume] in Serum or Plasma 133 [facility] ([facility]) Hemoglobin A1c/Hemoglobin.total in Blood 7.8 [facility] ([facility]) ID Date Data Source [id number] 08/09/2019 11:07:00 AM EST [facility] ([facility]) Name Value Range Interpretation Code Description Data Paola rce(s) Supporting Document(s) Hemoglobin A1c/Hemoglobin.total in Blood 7.2 [facility] ([facility]) Glucose [Mass/volume] in Serum or Plasma 196 [facility] ([facility]) ID Date Data Source [id number] 08/09/2019 11:04:00 AM EST [facility] ([facility]) Name Value Range Interpretation Code Description Data Paola rce(s) Supporting Document(s) Glucose [Mass/volume] in Serum or Plasma 196 [facility] ([facility]) Hemoglobin A1c/Hemoglobin.total in Blood 7.2 [facility] ([facility]) ID Date Data Source [id number] 08/06/2019 10:45:00 AM EST [facility] ([facility]) Name Value Range Interpretation Code Description Data Paola rce(s) Supporting Document(s) Creatinine, Urine 45.0 mg/dL [facility] Malb Urine Siemens 51.2 mg/L [facility] ([facility]) Ki/Creat Ratio 113.7 MCG/MG 0.0-30.0 [facility] ([facility]) THE [place] STATES THAT MICROALBUMINURIA IS PRESENT [...] Pulse oximetry 98 % 98 % [facility] ([facility]) Body mass index (BMI) [Ratio] 42.3 kg/m2 42.3 k g/m2 [facility] ([facility] ) Body weight 252.00 [lb_av] 252.00 [lb_av] [facility] T ([facility] ) Body height 64.75 [in_i] 64.75 [in_i] [facility] ([facility]) 5'4.75" Body temperature 96.8 [degF] 96.8 [degF] [facility] ([facility] ) Heart rate 89 /min 89 /min [facility] ([facility] ) Diastolic blood pressure 74 mm[Hg] 74 mm[Hg] [facility] ([facility] ) Systolic blood pressure 122 mm[Hg] 122 mm[Hg] M EDENT ([facility] ) Oxygen saturation in Arterial blood by Pulse oximetry 99 % 99 % [facility] ([facility] ) Body mass index (BMI) [Ratio] 41.7 kg/m2 41.7 k g/m2 [facility] ([facility] ) Body weight 248.44 [lb_av] 248.44 [lb_av] [facility] T ([facility] ) Body height 64.75 [in_i] 64.75 [in_i] [facility] ([facility]) 5'4.75" Body temperature 97.8 [degF] 97.8 [degF] [facility] ([facility] ) Heart rate 95 /min 95 /min [facility] ([facility] ) Diastolic blood pressure 80 mm[Hg] 80 mm[Hg] [facility] ([facility]) Systolic blood pressure 124 mm[Hg] 124 mm[Hg] M [facility] ([facility] ) Oxygen saturation in Arterial blood by Pulse oximetry 97 % 97 % [facility] ([facility] ) Body mass index (BMI) [Ratio] 41.4 kg/m2 41.4 k g/m2 [facility] ([facility] ) Body weight 247.00 [lb_av] 247.00 [lb_av] [facility] T ([facility] ) Body height 64.75 [in_i] 64.75 [in_i] [facility] ([facility]) 5'4.75" Heart rate 93 /min 93 /min [facility] ([facility] ) Diastolic blood pressure 86 mm[Hg] 86 mm[Hg] [facility] ([facility]) Systolic blood pressure 122 mm[Hg] 122 mm[Hg] M [facility] ([facility]) Oxygen saturation in Arterial blood by Pulse oximetry 94 % 94 % [facility] ([facility]) Body mass index (BMI) [Ratio] 41.2 kg/m2 41.2 k g/m2 [facility] ([facility]) Body weight 246.00 [lb_av] 246.00 [lb_av] [facility] T ([facility]) Body height 64.75 [in_i] 64.75 [in_i] [facility] ([facility]) 5'4.75" Heart rate 103 /min 103 /min [facility] ([facility]) Diastolic blood pressure 70 mm[Hg] 70 mm[Hg] [facility] ([facility]) Systolic blood pressure 120 mm[Hg] 120 mm[Hg] M [facility] ([facility]) Body mass index (BMI) [Ratio] 41.2 kg/m2 41.2 k g/m2 [facility] ([facility]) Body weight 246.00 [lb_av] 246.00 [lb_av] [facility] T ([facility]) Body height 64.75 [in_i] 64.75 [in_i] [facility] ([facility]) 5'4.75" Heart rate 86 /min 86 /min [facility] ([facility]) Diastolic blood pressure 70 mm[Hg] 70 mm[Hg] [facility] ([facility]) Systolic blood pressure 118 mm[Hg] 118 mm[Hg] M [facility] ([facility]) Oxygen saturation in Arterial blood by Pulse oximetry 97 % 97 % [facility] ([facility]) Body mass index (BMI) [Ratio] 40.2 kg/m2 40.2 k g/m2 [facility] ([facility]) Body weight 240.00 [lb_av] 240.00 [lb_av] [facility] T ([facility]) Body height 64.75 [in_i] 64.75 [in_i] [facility] ([facility]) 5'4.75" Heart rate 86 /min 86 /min [facility] ([facility]) Diastolic blood pressure 78 mm[Hg] 78 mm[Hg] [facility] ([facility]) Systolic blood pressure 120 mm[Hg] 120 mm[Hg] M [facility] ([facility])
[2020-09-16] MEDS ORDERED: SOMA250T PO (18:17)
[2020-09-16 18:44] VITALS: BP 137/62
== END 2020-09-16 19:17 | disposition home or self-care (01) ==
LOC: M ED 13:15
DX: M54.12 Radiculopathy, cervical region (principal); I25.10 Atherosclerotic heart disease of native coronary artery without angina pectoris; I25.2 Old myocardial infarction; I10 Essential (primary) hypertension; J44.9 Chronic obstructive pulmonary disease, unspecified; E78.5 Hyperlipidemia, unspecified; G47.30 Sleep apnea, unspecified; K21.9 Gastro-esophageal reflux disease without esophagitis; Z95.5 Presence of coronary angioplasty implant and graft; J67.0 Farmer's lung; Z79.899 Other long term (current) drug therapy; Z79.82 Long term (current) use of aspirin; Z79.4 Long term (current) use of insulin; Z91.89 Other specified personal risk factors, not elsewhere classified; Z91.040 Latex allergy status; Z88.1 Allergy status to other antibiotic agents; Z88.8 Allergy status to other drugs, medicaments and biological substances

== ENCOUNTER → 2020-09-21 | Outpatient (CLI) | payer MEDICARE ==
[~2020-09-21] MED LIST changes: +ISOS1TAB35 PO; +ISOS1TAB36 PO; -ISOS30TA4 PO; -ISOS60TA2 PO; -LISI-538 PO; +LISI20TA33 PO; +SOMA250T PO
[2020-09-21 12:56] LABS: HEMATOCRIT 45.2 % (42.0-52.0); HEMOGLOBIN 15.3 g/dl (13.5-17.5); MEAN CORPUSCULAR HGB CONC 33.8 g/dl (32.0-36.5); MEAN CORPUSCULAR VOLUME 97.4 fl (80.0-96.0); PLATELET COUNT, AUTOMATED 265 10^3/uL (150-450); RED BLOOD COUNT 4.64 10^6/uL (4.30-6.10); WHITE BLOOD COUNT 7.6 10^3/uL (4.0-10.0)
[2020-09-21 13:33] LABS: C REACTIVE PROTEIN QUANTITATIV 0.95 MG/DL (0.00-0.30); RHEUMATOID FACTOR QUANT < 10.0 IU/ML (<15.0); URIC ACID 6.4 MG/DL (3.5-7.2)
[2020-09-21 13:52] LABS: ERYTHROCYTE SEDIMENTATION RATE 34 mm/hr (0-20)
[2020-09-26 15:08] LABS: ANTINUCLEAR ANTIBODIES DIRECT Negative (Negative); HLA-B27 Negative (.); Lyme Disease IgG/IgM Antibodie <0.91 ISR (0.00-0.90); Lyme Disease IgM Ab Quantitati <0.80 index (0.00-0.79)
== END ==
LOC: M PLALAB 10:38
PROVIDERS: ATTEND Physician Assistant Surgical
DX: M50.30 Other cervical disc degeneration, unspecified cervical region (principal)

== ENCOUNTER → 2021-03-10 | Outpatient (REF) | payer MEDICARE | LOC: M LAB REF 16:56 | PROVIDERS: ATTEND Internal Medicine Nephrology | DX: N18.32 Chronic kidney disease, stage 3b (principal) ==

== ENCOUNTER → 2021-03-25 | Outpatient (CLI) | payer MEDICARE | LOC: M RAD 11:35 | PROVIDERS: ATTEND Surgery | DX: I87.313 Chronic venous hypertension (idiopathic) with ulcer of bilateral lower extremity (principal); I70.248 Atherosclerosis of native arteries of left leg with ulceration of other part of lower leg; L97.929 Non-pressure chronic ulcer of unspecified part of left lower leg with unspecified severity ==

== ENCOUNTER → 2021-05-03 | Outpatient (CLI) | payer MEDICARE | LOC: M LABSMTC 10:37 | PROVIDERS: ATTEND Internal Medicine Cardiovascular Disease | DX: Z01.812 Encounter for preprocedural laboratory examination (principal); Z20.822 Contact with and (suspected) exposure to COVID-19 ==

== ENCOUNTER → 2021-05-25 | Outpatient (REF) | payer MEDICARE | LOC: M LAB REF 17:12 | PROVIDERS: ATTEND Internal Medicine Nephrology | DX: N18.32 Chronic kidney disease, stage 3b (principal) ==

== ENCOUNTER → 2021-06-15 | Outpatient (CLI) | payer MEDICARE ==
--- NOTE | 2021-06-15 10:38 | REP ---
INDICATION: CHR VENOUS HYPERTENSION W/ULCER R LEG COMPARISON: None. TECHNIQUE: Sebastian scale and color Doppler evaluation using linear high frequency transducer including reflux evaluation. FINDINGS: Ultrasound examination of the right lower extremity deep venous structures from the common femoral vein through the calf/ankle to include the peroneal, and tibial veins demonstrates normal compressibility flow and wave patterns in response to respiration and augmentation. There is no evidence for deep venous thrombosis. Contralateral CFV is patent and normal. No evidence for reflux disease. IMPRESSION: No evidence for deep venous thrombosis. No evidence for reflux disease. <Electronically signed by Nick Bang > 06/15/21 [id number]
== END ==
LOC: M RAD 09:34
PROVIDERS: ATTEND Surgery
DX: I87.311 Chronic venous hypertension (idiopathic) with ulcer of right lower extremity (principal); L97.919 Non-pressure chronic ulcer of unspecified part of right lower leg with unspecified severity

== ENCOUNTER → 2021-09-27 | Outpatient (REF) | payer MEDICARE | LOC: M LAB REF 16:44 | PROVIDERS: ATTEND Nurse Practitioner Family | DX: N18.32 Chronic kidney disease, stage 3b (principal) ==

== ENCOUNTER 2022-11-12 15:38 | Emergency (ER) | payer MEDICARE ==
[~2022-11-12] VITALS: Ht 165.1 cm; Wt 102.5 kg
[2022-11-12 15:39] VITALS: BP 144/69
[2022-11-12] MEDS ORDERED: BOOSTRIX/ADACEL VACCINE (DIPHTH/PERTUSS/ACELL/TETANUS) 0.5ML SYR IM ONE (16:05)
[2022-11-12] MEDS ORDERED: ceFAZolin SOD 1 GM in D5W MINI-BAG PLUS 50 ML IV ONE (16:20)
[2022-11-12 16:30] LABS: BASO # 0.2 10^3/uL (0.0-0.2); BASO % 1.4 % (0.0-1.0); EOS # 0.3 10^3/uL (0.0-0.5); EOS % 2.6 % (0.0-3.0); HEMATOCRIT 43.2 % (42.0-52.0); LYMPH # 2.3 10^3/uL (1.5-5.0); LYMPH % 22.1 % (24.0-44.0); MEAN CORPUSCULAR HEMOGLOBIN 32.3 pg (27.0-33.0); MEAN CORPUSCULAR HGB CONC 34.7 g/dl (32.0-36.5); MEAN CORPUSCULAR VOLUME 93.1 fl (80.0-96.0); MONO # 0.9 10^3/uL (0.0-0.8); MONO % 8.3 % (2.0-8.0); NEUTROPHILS # 6.8 10^3/uL (1.5-8.5); PLATELET COUNT, AUTOMATED 220 10^3/uL (150-450); RED BLOOD COUNT 4.64 10^6/uL (4.30-6.10); WHITE BLOOD COUNT 10.5 10^3/uL (4.0-10.0)
[2022-11-12 16:48] LABS: INR 1.07; PARTIAL THROMBOPLASTIN TIME 27.2 SECONDS (24.8-34.2); PROTHROMBIN TIME 14.1 SECONDS (12.5-14.5)
[2022-11-12 17:00] LABS: RSV AMPLIFICATION NEGATIVE (NEGATIVE)
[2022-11-12 17:03] LABS: CALCIUM LEVEL 9.4 MG/DL (8.3-10.6); CREATININE FOR GFR 1.5 MG/DL (0.70-1.30); GLOMERULAR FILTRATION RATE 49.7 (>49); POTASSIUM SERUM 3.6 MMOL/L (3.5-5.1)
[2022-11-12] MEDS ORDERED: NS 500 ML IV ONE (17:10)
[2022-11-12] MEDS ORDERED: LIDOCAINE 1% MDV 20ML VIAL SC ONE (17:40)
[2022-11-12] MEDS ORDERED: BACITRACIN OINTMENT 30GM TUBE TOP STA (18:36)
[2022-11-12] MEDS ORDERED: NORCO 5/325MG TABLET (HOME DOSE PACK) PO ONE (18:40)
[2022-11-12] MEDS ORDERED: CEPH500C PO ×2 (18:50→19:08)
[2022-11-12] MEDS ORDERED: HYDR-3713 PO ×2 (18:50→19:08)
== END 2022-11-12 19:14 | disposition home or self-care (01) ==
LOC: M ED 15:38
DX: S61.213A Laceration without foreign body of left middle finger without damage to nail, initial encounter (principal); S66.121A Laceration of flexor muscle, fascia and tendon of left index finger at wrist and hand level, initial encounter; S61.215A Laceration without foreign body of left ring finger without damage to nail, initial encounter; S62.625A Displaced fracture of middle phalanx of left ring finger, initial encounter for closed fracture; W31.2XXA Contact with powered woodworking and forming machines, initial encounter; Y92.099 Unspecified place in other non-institutional residence as the place of occurrence of the external cause; I25.2 Old myocardial infarction; I10 Essential (primary) hypertension; E78.5 Hyperlipidemia, unspecified; E11.9 Type 2 diabetes mellitus without complications; J44.9 Chronic obstructive pulmonary disease, unspecified; K21.9 Gastro-esophageal reflux disease without esophagitis; Z79.4 Long term (current) use of insulin; Z79.82 Long term (current) use of aspirin; Z79.899 Other long term (current) drug therapy; Z88.0 Allergy status to penicillin; Z88.8 Allergy status to other drugs, medicaments and biological substances; Z91.040 Latex allergy status; Z91.89 Other specified personal risk factors, not elsewhere classified
CPT/HCPCS: 12001; 12042; 29130; 73140; 80048; 85025; 85610; 85730; 86850; 86900; 86901; 87631; 90471; 90715; 96365; 99283; J0690

== ENCOUNTER → 2022-11-14 | Outpatient (CLI) | payer MEDICARE ==
[~2022-11-14] MED LIST changes: +CEPH500C PO; +HYDR-3713 PO
== END ==
LOC: M SOG 15:38
PROVIDERS: ATTEND Orthopaedic Surgery Hand Surgery
DX: M79.645 Pain in left finger(s) (principal); S62.623A Displaced fracture of middle phalanx of left middle finger, initial encounter for closed fracture; X58.XXXA Exposure to other specified factors, initial encounter; Y92.9 Unspecified place or not applicable; Y93.9 Activity, unspecified; Y99.9 Unspecified external cause status

== ENCOUNTER 2022-11-25 14:52 | Observation (INO) | payer MEDICARE ==
[~2022-11-25] VITALS: Ht 165.1 cm; Wt 100.9 kg
[2022-11-25] MEDS: INSULIN LISPRO (NovoLOG) PER UNIT SC SCH ×2 (17:30→21:00)
[2022-11-25] MEDS ORDERED: VANCOMYCIN HCL 1,000 MG, VIAL MATE ADAPTER 1 EACH in NS 250 ML IV SCH (17:35)
[2022-11-25] MEDS ORDERED: INSULIN LISPRO (NovoLOG) PER UNIT SC SCH (17:50)
[2022-11-25] MEDS ORDERED: GLUCOSE 4GM CHEW TABLET PO PRN (17:50)
[2022-11-25] MEDS ORDERED: GLUCAGON INJ 1MG VIAL SC PRN (17:50)
[2022-11-25] MEDS ORDERED: DEXTROSE 50% 50ML SYRINGE IV PRN (17:50)
[2022-11-25] MEDS ORDERED: LORazepam 2 MG TAB PO PRN (18:05)
[2022-11-25 18:15] VITALS: BP 137/83
[2022-11-25 18:19] LABS: BASO # 0.1 10^3/uL (0.0-0.2); BASO % 1.8 % (0.0-1.0); EOS # 0.2 10^3/uL (0.0-0.5); HEMATOCRIT 37.5 % (42.0-52.0); HEMOGLOBIN 12.6 g/dl (13.5-17.5); LYMPH # 2.5 10^3/uL (1.5-5.0); LYMPH % 30.7 % (24.0-44.0); MEAN CORPUSCULAR HEMOGLOBIN 31.8 pg (27.0-33.0); MEAN CORPUSCULAR HGB CONC 33.6 g/dl (32.0-36.5); MEAN CORPUSCULAR VOLUME 94.7 fl (80.0-96.0); MONO # 0.6 10^3/uL (0.0-0.8); MONO % 7.8 % (2.0-8.0); NEUTROPHILS # 4.5 10^3/uL (1.5-8.5); NEUTROPHILS % 56.2 % (36.0-66.0); PLATELET COUNT, AUTOMATED 310 10^3/uL (150-450); RED BLOOD COUNT 3.96 10^6/uL (4.30-6.10)
[2022-11-25 18:39] LABS: ALBUMIN 3.3 G/DL (3.2-5.2); ALKALINE PHOSPHATASE 64 U/L (46-116); ALT/SGPT 20 U/L (7.0-40); AST/SGOT 22 U/L (<34); BILIRUBIN,TOTAL 0.3 MG/DL (0.3-1.2); BLOOD UREA NITROGEN 19 MG/DL (9-23); CALCIUM LEVEL 8.9 MG/DL (8.3-10.6); CARBON DIOXIDE LEVEL 28 MMOL/L (20-31); CHLORIDE LEVEL 106 MMOL/L (98-107); CREATININE FOR GFR 1.17 MG/DL (0.70-1.30); GLOMERULAR FILTRATION RATE > 60.0 (>49); GLUCOSE, FASTING 105 MG/DL (74-106); MAGNESIUM LEVEL 1.5 MG/DL (1.8-2.4); POTASSIUM SERUM 3.9 MMOL/L (3.5-5.1); SODIUM LEVEL 141 MMOL/L (136-145); TOTAL PROTEIN 6.4 G/DL (5.7-8.2)
[2022-11-25 18:52] LABS: HEMOGLOBIN A1c 6.1 % (4.0-6.0)
[2022-11-25] MEDS ORDERED: INSUDET SC (19:08)
[2022-11-25] MEDS ORDERED: DONE10TA90 PO (19:08)
[2022-11-25] MEDS ORDERED: ALPH600C PO (19:08)
[2022-11-25] MEDS ORDERED: CEPH500C PO (19:08)
[2022-11-25] MEDS ORDERED: POTA1TAB14 PO (19:08)
[2022-11-25] MEDS ORDERED: INSUH10VL SC (19:08)
[2022-11-25] MEDS ORDERED: PROBCAP14 PO (19:08)
[2022-11-25] MEDS ORDERED: VASC1CAP2 PO (19:08)
[2022-11-25] MEDS ORDERED: CALCTAB89 PO (19:08)
[2022-11-25] MEDS ORDERED: MEMA28CA12 PO (19:08)
[2022-11-25] MEDS ORDERED: ACET-897 PO (19:08)
[2022-11-25] MEDS ORDERED: HYDR-3713 PO (19:08)
[2022-11-25] MEDS ORDERED: BUME2TAB3 PO (19:08)
[2022-11-25] MEDS ORDERED: FENO160T10 PO (19:08)
[2022-11-25] MEDS ORDERED: MULTTAB86 PO (19:08)
[2022-11-25] MEDS ORDERED: ROSU40TA4 PO (19:08)
[2022-11-25] MEDS ORDERED: HOME MED LIST COMPLETE! XX SCH (19:10)
[2022-11-25] MEDS ORDERED: VANCOMYCIN HCL 1,000 MG, VIAL MATE ADAPTER 1 EACH in NS 250 ML IV ONE ×2 (20:00→21:00)
[2022-11-25] MEDS: NORCO, ANEXSIA 5/325MG TABLET (HYDROcodone/ACETAMINOPHEN) PO PRN (20:02)
[2022-11-25] MEDS: MAG SULF 1GM/100ML (MAG RUN) 1 GM in IV 1 EA IV SCH (20:03)
[2022-11-25] MEDS: THIAMINE 100 MG TAB PO SCH (20:06)
[2022-11-25] MEDS: DOCUSATE SODIUM 100MG CAPSULE PO SCH (20:06)
[2022-11-25] MEDS: FENOFIBRATE 145MG TABLET (TRICOR) PO SCH (20:07)
[2022-11-25] MEDS: FOLIC ACID 1MG TAB PO SCH (20:07)
[2022-11-25] MEDS: MULTIVITAMINS/MINERALS THERAP 1 TAB PO SCH (20:07)
[2022-11-25] MEDS: MAGNESIUM OXIDE 400MG TAB (MAG-OX) PO SCH (20:07)
[2022-11-25] MEDS: BUMETANIDE 1 MG TAB PO SCH (20:07)
[2022-11-25] MEDS: METOPROLOL TART 50 MG TAB PO SCH (20:08)
[2022-11-25] MEDS: ROSUVASTATIN 10 MG TAB (CRESTOR) PO SCH (20:08)
[2022-11-25] MEDS ORDERED: BACITRACIN OINTMENT 30GM TUBE TOP ONE (21:00)
[2022-11-25] MEDS: LEVEMIR (INSULIN DETEMIR) 1 UNITS/0.01ML SC SCH (21:31)
[2022-11-25 21:36] VITALS: BP 119/63
[2022-11-25 22:00] VITALS: BP 119/63
[2022-11-26] VITALS (8 sets, daily range): BP systolic 99–167; BP diastolic 55–99
[2022-11-26] MEDS: MAG SULF 1GM/100ML (MAG RUN) 1 GM in IV 1 EA IV SCH (00:43)
[2022-11-26] MEDS ORDERED: MAG SULF 1GM/100ML (MAG RUN) 1 GM in IV 1 EA IV ONE (01:00)
[2022-11-26] MEDS: INSULIN LISPRO (NovoLOG) PER UNIT SC SCH ×4 (07:30→21:00)
[2022-11-26 07:32] LABS: BASO # 0.2 10^3/uL (0.0-0.2); BASO % 1.6 % (0.0-1.0); EOS # 0.3 10^3/uL (0.0-0.5); EOS % 3.1 % (0.0-3.0); HEMATOCRIT 38.9 % (42.0-52.0); HEMOGLOBIN 13.2 g/dl (13.5-17.5); LYMPH # 2.3 10^3/uL (1.5-5.0); LYMPH % 24.7 % (24.0-44.0); MEAN CORPUSCULAR HEMOGLOBIN 32.4 pg (27.0-33.0); MEAN CORPUSCULAR HGB CONC 33.9 g/dl (32.0-36.5); MEAN CORPUSCULAR VOLUME 95.3 fl (80.0-96.0); MONO # 0.8 10^3/uL (0.0-0.8); MONO % 8.1 % (2.0-8.0); NEUTROPHILS # 5.8 10^3/uL (1.5-8.5); PLATELET COUNT, AUTOMATED 309 10^3/uL (150-450); RED BLOOD COUNT 4.08 10^6/uL (4.30-6.10); WHITE BLOOD COUNT 9.4 10^3/uL (4.0-10.0)
[2022-11-26 08:01] LABS: BLOOD UREA NITROGEN 17 MG/DL (9-23); CALCIUM LEVEL 8.9 MG/DL (8.3-10.6); CARBON DIOXIDE LEVEL 33 MMOL/L (20-31); CHLORIDE LEVEL 104 MMOL/L (98-107); CREATININE FOR GFR 1.12 MG/DL (0.70-1.30); GLOMERULAR FILTRATION RATE > 60.0 (>49); GLUCOSE, FASTING 68 MG/DL (74-106); MAGNESIUM LEVEL 1.9 MG/DL (1.8-2.4); POTASSIUM SERUM 3.9 MMOL/L (3.5-5.1); SODIUM LEVEL 142 MMOL/L (136-145)
[2022-11-26] MEDS: LEVEMIR (INSULIN DETEMIR) 1 UNITS/0.01ML SC SCH ×2 (08:19→20:23)
[2022-11-26] MEDS: VANCOMYCIN HCL 750 MG, VIAL MATE ADAPTER 1 EACH in D5W 250 ML IV SCH ×2 (08:34→20:23)
[2022-11-26] MEDS: EZETIMIBE 10MG TABLET (ZETIA) PO SCH (08:35)
[2022-11-26] MEDS: MULTIVITAMINS/MINERALS THERAP 1 TAB PO SCH (08:35)
[2022-11-26] MEDS: THIAMINE 100 MG TAB PO SCH ×2 (08:35→20:25)
[2022-11-26] MEDS: MAGNESIUM OXIDE 400MG TAB (MAG-OX) PO SCH ×2 (08:35→20:25)
[2022-11-26] MEDS: DOCUSATE SODIUM 100MG CAPSULE PO SCH ×2 (08:35→20:25)
[2022-11-26] MEDS: OMEPRAZOLE 20MG CAP PO SCH (08:36)
[2022-11-26] MEDS: CETIRIZINE (ZyrTEC) 10 MG TAB PO SCH (08:36)
[2022-11-26] MEDS: BUMETANIDE 1 MG TAB PO SCH ×2 (08:36→20:27)
[2022-11-26] MEDS: DONEPEZIL 5 MG TAB PO SCH (08:36)
[2022-11-26] MEDS: METOPROLOL TART 50 MG TAB PO SCH ×2 (08:36→20:28)
[2022-11-26] MEDS: FOLIC ACID 1MG TAB PO SCH (08:36)
[2022-11-26] MEDS ORDERED: MEMANTINE 5MG TABLET (NAMENDA) PO SCH (09:00)
[2022-11-26] MEDS: ASPIRIN 325 MG TAB PO SCH (09:00)
[2022-11-26] MEDS ORDERED: POTASSIUM CHLORIDE 10MEQ SR TABLET PO SCH (09:00)
[2022-11-26] MEDS ORDERED: MEMANTINE 28 MG PO SCH (09:00)
[2022-11-26] MEDS ORDERED: BUPIVACAINE HCL 0.25% 30ML VIAL As Ordered ONE (09:32)
[2022-11-26] MEDS ORDERED: BACITRACIN OINTMENT 30GM TUBE As Ordered ONE (09:34)
[2022-11-26] MEDS ORDERED: LIDOCAINE 2% 100MG/5ML SDV (FOR ANES.) As Ordered ONE (09:44)
[2022-11-26] MEDS ORDERED: MIDAZOLAM INJ 2MG/2ML VIAL As Ordered ONE (09:44)
[2022-11-26] MEDS ORDERED: propofoL 200 MG/20 ML VIAL As Ordered ONE (09:44)
[2022-11-26] MEDS ORDERED: fentaNYL 100 MCG/2 ML INJECTION As Ordered ONE ×2 (09:45→11:11)
[2022-11-26] MEDS ORDERED: METOCLOPRAMIDE INJ 10MG/2ML VIAL As Ordered ONE (10:15)
[2022-11-26] MEDS ORDERED: ONDANSETRON 4MG 2ML VIAL As Ordered ONE (10:15)
[2022-11-26] MEDS ORDERED: ACETAMINOPHEN 1000MG 100ML IV BAG As Ordered ONE (10:30)
[2022-11-26] MEDS ORDERED: KETOROLAC 60MG 2ML VIAL As Ordered ONE (10:37)
[2022-11-26] MEDS ORDERED: ONDANSETRON 4MG 2ML VIAL IV PRN (11:10)
[2022-11-26] MEDS ORDERED: LR 1,000 ML IV SCH (11:10)
[2022-11-26] MEDS ORDERED: oxyCODONE 5MG TAB PO PRN (11:10)
[2022-11-26] MEDS: fentaNYL 100 MCG/2 ML INJECTION IV PRN ×2 (11:14→11:19)
[2022-11-26] MEDS: HYDROMORPHONE HCL 0.5 MG/ 0.5 ML SYRINGE IV PRN ×4 (11:27→11:48)
[2022-11-26] MEDS ORDERED: MORPHINE 2 MG/ML 1ML VIAL IV PRN (11:30)
[2022-11-26] MEDS: NORCO, ANEXSIA 5/325MG TABLET (HYDROcodone/ACETAMINOPHEN) PO PRN (18:46)
[2022-11-26] MEDS: FENOFIBRATE 145MG TABLET (TRICOR) PO SCH (20:25)
[2022-11-26] MEDS: ROSUVASTATIN 10 MG TAB (CRESTOR) PO SCH (20:26)
[2022-11-27] MEDS: NORCO, ANEXSIA 5/325MG TABLET (HYDROcodone/ACETAMINOPHEN) PO PRN ×3 (01:28→17:39)
[2022-11-27 02:00] VITALS: BP 113/56
[2022-11-27 06:00] VITALS: BP 110/54
[2022-11-27 06:21] LABS: BASO # 0.1 10^3/uL (0.0-0.2); BASO % 1.8 % (0.0-1.0); EOS # 0.3 10^3/uL (0.0-0.5); EOS % 3.5 % (0.0-3.0); HEMATOCRIT 35.1 % (42.0-52.0); HEMOGLOBIN 11.9 g/dl (13.5-17.5); LYMPH # 2.6 10^3/uL (1.5-5.0); LYMPH % 36.3 % (24.0-44.0); MEAN CORPUSCULAR HEMOGLOBIN 33.1 pg (27.0-33.0); MEAN CORPUSCULAR HGB CONC 33.9 g/dl (32.0-36.5); MEAN CORPUSCULAR VOLUME 97.8 fl (80.0-96.0); MONO # 0.6 10^3/uL (0.0-0.8); MONO % 8.9 % (2.0-8.0); NEUTROPHILS # 3.5 10^3/uL (1.5-8.5); NEUTROPHILS % 49.1 % (36.0-66.0); PLATELET COUNT, AUTOMATED 267 10^3/uL (150-450); RED BLOOD COUNT 3.59 10^6/uL (4.30-6.10); WHITE BLOOD COUNT 7.1 10^3/uL (4.0-10.0)
[2022-11-27 06:38] VITALS: BP 112/68
[2022-11-27 07:04] LABS: CALCIUM LEVEL 8.3 MG/DL (8.3-10.6); CREATININE FOR GFR 2.34 MG/DL (0.70-1.30); GLOMERULAR FILTRATION RATE 29.7 (>49); MAGNESIUM LEVEL 1.8 MG/DL (1.8-2.4)
[2022-11-27] MEDS ORDERED: NS 1,000 ML IV SCH (07:10)
[2022-11-27] MEDS: INSULIN LISPRO (NovoLOG) PER UNIT SC SCH ×4 (07:30→21:00)
[2022-11-27] MEDS: LEVEMIR (INSULIN DETEMIR) 1 UNITS/0.01ML SC SCH ×2 (09:00→20:21)
[2022-11-27] MEDS: EZETIMIBE 10MG TABLET (ZETIA) PO SCH (09:43)
[2022-11-27] MEDS: OMEPRAZOLE 20MG CAP PO SCH (09:43)
[2022-11-27] MEDS: CETIRIZINE (ZyrTEC) 10 MG TAB PO SCH (09:43)
[2022-11-27] MEDS: DONEPEZIL 5 MG TAB PO SCH (09:43)
[2022-11-27] MEDS: ASPIRIN 325 MG TAB PO SCH (09:43)
[2022-11-27] MEDS: METOPROLOL TART 50 MG TAB PO SCH ×2 (09:44→20:27)
[2022-11-27] MEDS: FOLIC ACID 1MG TAB PO SCH (09:44)
[2022-11-27] MEDS: THIAMINE 100 MG TAB PO SCH ×2 (09:44→20:22)
[2022-11-27] MEDS: MAGNESIUM OXIDE 400MG TAB (MAG-OX) PO SCH ×2 (09:44→20:21)
[2022-11-27] MEDS: MULTIVITAMINS/MINERALS THERAP 1 TAB PO SCH (09:44)
[2022-11-27] MEDS: DOCUSATE SODIUM 100MG CAPSULE PO SCH ×2 (09:44→20:22)
[2022-11-27 10:00] VITALS: BP 138/64
[2022-11-27 10:52] LABS: CHLORIDE,RANDOM URINE 26 MMOL/L; SODIUM,RANDOM URINE 26 MMOL/L
[2022-11-27] MEDS: NS 1,000 ML IV SCH ×2 (11:14→21:15)
[2022-11-27 11:34] LABS: APPEARANCE, URINE HAZY (CLEAR); BACTERIA, URINE AUTO NEGATIVE (NEGATIVE); BILIRUBIN, URINE AUTO NEGATIVE (NEGATIVE); BLOOD, URINE BLOOD NEGATIVE (NEGATIVE); COLOR, URINE YELLOW (YELLOW); GLUCOSE, URINE (UA) AUTO NEGATIVE (NEGATIVE); GRANULAR CAST, URINE AUTO 4 /LPF; KETONE, URINE AUTO NEGATIVE (NEGATIVE); LEUKOCYTE ESTERASE, URINE AUTO NEGATIVE (NEGATIVE); MUCUS, URINE SMALL (NEGATIVE); NITRITE, URINE AUTO NEGATIVE (NEGATIVE); PROTEIN, URINE AUTO NEGATIVE (NEGATIVE); RBC, URINE AUTO 1 /HPF (0-3); SPECIFIC GRAVITY URINE AUTO 1.015 (1.002-1.035); SQUAMOUS EPITHELIAL CELL UR AU 0 /HPF (0-6); UROBILINOGEN, URINE AUTO 0.2 mg/dL (0.0-2.0); WBC, URINE AUTO 3 /HPF (0-3)
[2022-11-27 14:00] VITALS: BP 109/54
[2022-11-27 15:01] LABS: CALCIUM LEVEL 8.1 MG/DL (8.3-10.6); CREATININE FOR GFR 2.16 MG/DL (0.70-1.30); GLOMERULAR FILTRATION RATE 32.6 (>49); POTASSIUM SERUM 4.2 MMOL/L (3.5-5.1)
[2022-11-27] MEDS: FENOFIBRATE 145MG TABLET (TRICOR) PO SCH (20:21)
[2022-11-27] MEDS: ROSUVASTATIN 10 MG TAB (CRESTOR) PO SCH (20:21)
[2022-11-27 21:32] VITALS: BP 121/58
[2022-11-28 06:00] VITALS: BP 139/70
[2022-11-28 06:14] LABS: BASO # 0.1 10^3/uL (0.0-0.2); BASO % 1.8 % (0.0-1.0); EOS # 0.3 10^3/uL (0.0-0.5); EOS % 3.9 % (0.0-3.0); HEMATOCRIT 35.3 % (42.0-52.0); HEMOGLOBIN 11.9 g/dl (13.5-17.5); LYMPH # 2.3 10^3/uL (1.5-5.0); LYMPH % 34.1 % (24.0-44.0); MEAN CORPUSCULAR HEMOGLOBIN 32.3 pg (27.0-33.0); MEAN CORPUSCULAR HGB CONC 33.7 g/dl (32.0-36.5); MEAN CORPUSCULAR VOLUME 95.9 fl (80.0-96.0); MONO # 0.6 10^3/uL (0.0-0.8); MONO % 8.4 % (2.0-8.0); NEUTROPHILS # 3.4 10^3/uL (1.5-8.5); NEUTROPHILS % 51.2 % (36.0-66.0); PLATELET COUNT, AUTOMATED 260 10^3/uL (150-450); RED BLOOD COUNT 3.68 10^6/uL (4.30-6.10); WHITE BLOOD COUNT 6.6 10^3/uL (4.0-10.0)
[2022-11-28 06:46] LABS: CALCIUM LEVEL 8.7 MG/DL (8.3-10.6); CREATININE FOR GFR 1.49 MG/DL (0.70-1.30); GLOMERULAR FILTRATION RATE 50.1 (>49); MAGNESIUM LEVEL 1.8 MG/DL (1.8-2.4); POTASSIUM SERUM 4.4 MMOL/L (3.5-5.1)
[2022-11-28] MEDS ORDERED: BUME2TAB3 PO ×2 (07:09→09:46)
[2022-11-28] MEDS: INSULIN LISPRO (NovoLOG) PER UNIT SC SCH (08:24)
[2022-11-28 08:25] VITALS: BP 139/70
[2022-11-28] MEDS: ASPIRIN 325 MG TAB PO SCH (08:25)
[2022-11-28] MEDS: EZETIMIBE 10MG TABLET (ZETIA) PO SCH (08:25)
[2022-11-28] MEDS: LEVEMIR (INSULIN DETEMIR) 1 UNITS/0.01ML SC SCH (08:25)
[2022-11-28] MEDS: CETIRIZINE (ZyrTEC) 10 MG TAB PO SCH (08:25)
[2022-11-28] MEDS: METOPROLOL TART 50 MG TAB PO SCH (08:25)
[2022-11-28] MEDS: THIAMINE 100 MG TAB PO SCH (08:25)
[2022-11-28] MEDS: DONEPEZIL 5 MG TAB PO SCH (08:25)
[2022-11-28] MEDS: OMEPRAZOLE 20MG CAP PO SCH (08:26)
[2022-11-28] MEDS: MULTIVITAMINS/MINERALS THERAP 1 TAB PO SCH (08:26)
[2022-11-28] MEDS: MAGNESIUM OXIDE 400MG TAB (MAG-OX) PO SCH (08:26)
[2022-11-28] MEDS: DOCUSATE SODIUM 100MG CAPSULE PO SCH (08:27)
[2022-11-28] MEDS: FOLIC ACID 1MG TAB PO SCH (08:27)
== END 2022-11-28 11:00 | disposition home or self-care (01) ==
LOC: M MS5PR 16:46
PROVIDERS: ADMIT Internal Medicine; ATTEND Internal Medicine
DX: S68.623A Partial traumatic transphalangeal amputation of left middle finger, initial encounter (principal); W31.2XXA Contact with powered woodworking and forming machines, initial encounter; Y92.89 Other specified places as the place of occurrence of the external cause; Y93.9 Activity, unspecified; Y99.9 Unspecified external cause status; L03.012 Cellulitis of left finger; I25.2 Old myocardial infarction; I10 Essential (primary) hypertension; Z98.61 Coronary angioplasty status; E11.9 Type 2 diabetes mellitus without complications; F17.210 Nicotine dependence, cigarettes, uncomplicated; Z79.82 Long term (current) use of aspirin; Z79.4 Long term (current) use of insulin; Z79.899 Other long term (current) drug therapy; F10.10 Alcohol abuse, uncomplicated; K21.9 Gastro-esophageal reflux disease without esophagitis; Z88.1 Allergy status to other antibiotic agents; Z88.8 Allergy status to other drugs, medicaments and biological substances; Z91.040 Latex allergy status
CPT/HCPCS: 26951; 36415; 76000; 76775; 80048; 80053; 80202; 81001; 82436; 82570; 83036; 83605; 83735; 84133; 84145; 84300; 85025; 86140; 87070; 87075; 87077; 87186; 87205; 87635; 88302; 93005; 96361; 96365; 96366; 96375; G0378; J0131; J1170; J1815; J1885; J2250; J2405; J2765; J3010; J3475

== ENCOUNTER 2023-03-13 17:33 | Inpatient (IN) | payer MEDICARE ==
[~2023-03-13] VITALS: Ht 170.2 cm; Wt 96.0 kg
[~2023-03-13 17:33] MED LIST changes: +ACET-897 PO; +ALPH600C PO; +BUME2TAB3 PO; +CALCTAB89 PO; +DONE10TA90 PO; +FENO160T10 PO; +INSUDET SC; +INSUH10VL SC; -K-TA10TA2 PO; +MEMA28CA12 PO; +MULTTAB86 PO; +POTA-165 PO; +POTA-298 PO; +PROBCAP14 PO; +ROSU40TA4 PO; +VASC1CAP2 PO
[2023-03-13] MEDS ORDERED: DEXTROSE 50% 50ML SYRINGE As Ordered ONE (17:52)
[2023-03-13] MEDS ORDERED: DEXTROSE 50% 50ML SYRINGE IV STA ×2 (17:55→18:47)
[2023-03-13] MEDS ORDERED: D5W 1,000 ML IV SCH (17:55)
[2023-03-13 18:18] LABS: VENOUS BASE EXCESS 1.9 (-2.0-2.0); VENOUS HCO3 28.5 MMOL/L (23.0-27.0); VENOUS PARTIAL PRESSURE CO2 51.4 mmHg (38.0-50.0); VENOUS PARTIAL PRESSURE O2 37.4 mmHg (30.0-50.0); VENOUS PH 7.362 UNITS (7.330-7.430); VENOUS STANDARD HCO3 25.4 MMOL/L; VENOUS TOTAL CO2 30.1 MMOL/L (24.0-28.0)
[2023-03-13 18:27] LABS: BASO # 0.1 10^3/uL (0.0-0.2); BASO % 0.9 % (0.0-1.0); EOS # 0.3 10^3/uL (0.0-0.5); EOS % 3.2 % (0.0-3.0); HEMATOCRIT 45.6 % (42.0-52.0); HEMOGLOBIN 15.7 g/dl (13.5-17.5); LYMPH # 2.7 10^3/uL (1.5-5.0); LYMPH % 35.1 % (24.0-44.0); MEAN CORPUSCULAR HEMOGLOBIN 31.9 pg (27.0-33.0); MEAN CORPUSCULAR HGB CONC 34.4 g/dl (32.0-36.5); MEAN CORPUSCULAR VOLUME 92.7 fl (80.0-96.0); MONO # 0.4 10^3/uL (0.0-0.8); MONO % 4.5 % (2.0-8.0); NEUTROPHILS # 4.3 10^3/uL (1.5-8.5); NEUTROPHILS % 55.8 % (36.0-66.0); PLATELET COUNT, AUTOMATED 226 10^3/uL (150-450); RED BLOOD COUNT 4.92 10^6/uL (4.30-6.10); WHITE BLOOD COUNT 7.7 10^3/uL (4.0-10.0)
[2023-03-13 18:49] LABS: HEMOGLOBIN A1c 6.7 % (4.0-6.0)
[2023-03-13 18:54] LABS: LIPASE 54 U/L (12-53)
[2023-03-13 18:55] LABS: ACETAMINOPHEN LEVEL < 2.0 UG/ML (10.0-20.0)
[2023-03-13 18:56] LABS: RSV AMPLIFICATION NEGATIVE (NEGATIVE)
[2023-03-13 18:56] LABS: ALBUMIN 3.8 G/DL (3.2-5.2); ALKALINE PHOSPHATASE 54 U/L (46-116); ALT/SGPT 25 U/L (7.0-40); AST/SGOT 29 U/L (<34); BILIRUBIN,DIRECT < 0.1 MG/DL (<0.4); BILIRUBIN,TOTAL 0.3 MG/DL (0.3-1.2); BLOOD UREA NITROGEN 20 MG/DL (9-23); CALCIUM LEVEL 8.9 MG/DL (8.3-10.6); CARBON DIOXIDE LEVEL 30 MMOL/L (20-31); CHLORIDE LEVEL 101 MMOL/L (98-107); CREATININE FOR GFR 1.16 MG/DL (0.70-1.30); GLOMERULAR FILTRATION RATE > 60.0 (>49); GLUCOSE, FASTING 41 MG/DL (74-106); MAGNESIUM LEVEL 1.9 MG/DL (1.8-2.4); POTASSIUM SERUM 3.8 MMOL/L (3.5-5.1); SALICYLATE LEVEL < 3.0 MG/DL (<30); SODIUM LEVEL 140 MMOL/L (136-145); TOTAL PROTEIN 6.9 G/DL (5.7-8.2)
[2023-03-13 18:57] LABS: ACETONE/KETONE 0.16 MMOL/L (0.02-0.27)
[2023-03-13 18:58] LABS: THYROID STIMULATING HORMONE 1.057 uIU/ML (0.55-4.78)
[2023-03-13 19:00] LABS: CPK CREATINE PHOSPHOKINASE 154 U/L (46-171)
[2023-03-13] MEDS ORDERED: D10W 1,000 ML IV SCH (19:15)
[2023-03-13 19:28] LABS: OSMOLALITY SERUM 334 MOSM/KG (280-301)
[2023-03-13] MEDS ORDERED: DEXTROSE 50% 50ML SYRINGE IV PRN ×2 (19:30→22:05)
[2023-03-13 21:02] LABS: ETHYL ALCOHOL (ETHANOL) 0.207 % (0.000-0.010)
[2023-03-13] MEDS ORDERED: MED REC IN PROGRESS XX SCH (22:05)
[2023-03-13] MEDS ORDERED: ACETAMINOPHEN TAB 650MG DOSE (2X325MG) PO PRN (22:05)
[2023-03-13] MEDS ORDERED: LORazepam 2 MG TAB PO PRN (22:05)
[2023-03-13] MEDS: D10W 1,000 ML IV SCH (22:21)
[2023-03-13] MEDS: THIAMINE 100 MG TAB PO SCH (22:23)
[2023-03-13] MEDS ORDERED: BUME2TAB3 PO (23:13)
[2023-03-13] MEDS ORDERED: RISATAB3 PO (23:13)
[2023-03-13] MEDS ORDERED: INSUH10VL SC (23:13)
[2023-03-13] MEDS ORDERED: CALC600T86 PO (23:13)
[2023-03-13] MEDS ORDERED: VITMTA PO (23:13)
[2023-03-13] MEDS ORDERED: HOME MED LIST COMPLETE! XX SCH (23:15)
[2023-03-14] VITALS (13 sets, daily range): BP systolic 122–144; BP diastolic 58–78; TEMP 96.7–97.6; O2SAT 94–98
[2023-03-14] MEDS: POTASSIUM CHLORIDE 10MEQ SR TABLET PO SCH ×2 (00:38→20:47)
[2023-03-14] MEDS: METOPROLOL TART 50 MG TAB PO SCH ×2 (00:38→09:31)
[2023-03-14] MEDS: D10W 1,000 ML IV SCH ×2 (05:39→14:34)
[2023-03-14 06:08] LABS: HEMOGLOBIN 14.7 g/dl (13.5-17.5); MEAN CORPUSCULAR HEMOGLOBIN 31.6 pg (27.0-33.0); MEAN CORPUSCULAR VOLUME 90.3 fl (80.0-96.0); PLATELET COUNT, AUTOMATED 200 10^3/uL (150-450); RED BLOOD COUNT 4.65 10^6/uL (4.30-6.10); WHITE BLOOD COUNT 10.9 10^3/uL (4.0-10.0)
[2023-03-14 06:36] LABS: BLOOD UREA NITROGEN 17 MG/DL (9-23); CALCIUM LEVEL 10.2 MG/DL (8.3-10.6); CARBON DIOXIDE LEVEL 30 MMOL/L (20-31); CHLORIDE LEVEL 101 MMOL/L (98-107); CREATININE FOR GFR 1.06 MG/DL (0.70-1.30); GLOMERULAR FILTRATION RATE > 60.0 (>49); GLUCOSE, FASTING 63 MG/DL (74-106); MAGNESIUM LEVEL 1.4 MG/DL (1.8-2.4); POTASSIUM SERUM 3.5 MMOL/L (3.5-5.1); SODIUM LEVEL 136 MMOL/L (136-145)
[2023-03-14] MEDS ORDERED: MAG SULF 1GM/100ML (MAG RUN) 1 GM in IV 1 EA IV ONE (08:00)
[2023-03-14] MEDS: FOLIC ACID 1MG TAB PO SCH (09:31)
[2023-03-14] MEDS: OMEPRAZOLE 20MG CAP PO SCH (09:31)
[2023-03-14] MEDS: DONEPEZIL 5 MG TAB PO SCH (09:31)
[2023-03-14] MEDS: ENOXAPARIN 40MG/0.4ML SYRINGE (J1650 PER 10MG) SC SCH (09:31)
[2023-03-14] MEDS: MULTIVITAMINS/MINERALS THERAP 1 TAB PO SCH (09:31)
[2023-03-14] MEDS: THIAMINE 100 MG TAB PO SCH ×2 (09:32→20:46)
[2023-03-14] MEDS: BUMETANIDE 1 MG TAB PO SCH ×2 (09:32→17:18)
[2023-03-14] MEDS: LACTOBACILLUS ACIDOPHILUS CAP (BACID) PO SCH (09:32)
[2023-03-14] MEDS: ASPIRIN 325 MG TAB PO SCH (09:32)
[2023-03-14] MEDS: CETIRIZINE (ZyrTEC) 10 MG TAB PO SCH (09:32)
[2023-03-14] MEDS: MEMANTINE 5MG TABLET (NAMENDA) PO SCH ×2 (09:32→20:47)
[2023-03-14] MEDS: MAGNESIUM OXIDE 400MG TAB (MAG-OX) PO SCH ×2 (09:32→20:46)
[2023-03-14 09:54] LABS: BLOOD UREA NITROGEN 16 MG/DL (9-23); CALCIUM LEVEL 9.2 MG/DL (8.3-10.6); CARBON DIOXIDE LEVEL 31 MMOL/L (20-31); CHLORIDE LEVEL 101 MMOL/L (98-107); CREATININE FOR GFR 1.12 MG/DL (0.70-1.30); GLOMERULAR FILTRATION RATE > 60.0 (>49); GLUCOSE, FASTING 96 MG/DL (74-106); POTASSIUM SERUM 3.8 MMOL/L (3.5-5.1); SODIUM LEVEL 137 MMOL/L (136-145)
[2023-03-14 13:43] LABS: BLOOD UREA NITROGEN 16 MG/DL (9-23); CALCIUM LEVEL 10.2 MG/DL (8.3-10.6); CARBON DIOXIDE LEVEL 27 MMOL/L (20-31); CHLORIDE LEVEL 100 MMOL/L (98-107); CREATININE FOR GFR 1.15 MG/DL (0.70-1.30); GLOMERULAR FILTRATION RATE > 60.0 (>49); GLUCOSE, FASTING 133 MG/DL (74-106); POTASSIUM SERUM 4.1 MMOL/L (3.5-5.1); SODIUM LEVEL 134 MMOL/L (136-145)
[2023-03-14] MEDS ORDERED: D5W/0.9% SODIUM CHLORIDE 1,000 ML IV SCH (16:05)
[2023-03-14 17:55] LABS: BLOOD UREA NITROGEN 15 MG/DL (9-23); CALCIUM LEVEL 8.7 MG/DL (8.3-10.6); CARBON DIOXIDE LEVEL 32 MMOL/L (20-31); CHLORIDE LEVEL 101 MMOL/L (98-107); CREATININE FOR GFR 1.17 MG/DL (0.70-1.30); GLOMERULAR FILTRATION RATE > 60.0 (>49); GLUCOSE, FASTING 190 MG/DL (74-106); POTASSIUM SERUM 4.2 MMOL/L (3.5-5.1); SODIUM LEVEL 135 MMOL/L (136-145)
[2023-03-14] MEDS: FENOFIBRATE 145MG TABLET (TRICOR) PO SCH (20:46)
[2023-03-14] MEDS: ROSUVASTATIN 10 MG TAB (CRESTOR) PO SCH (20:46)
[2023-03-14 21:42] LABS: CALCIUM LEVEL 9.6 MG/DL (8.3-10.6); CREATININE FOR GFR 1.35 MG/DL (0.70-1.30); GLOMERULAR FILTRATION RATE 56.1 (>49)
[2023-03-15 00:06] VITALS: BP 131/60; TEMP 98.1; O2SAT 96
[2023-03-15 02:09] LABS: CALCIUM LEVEL 9.6 MG/DL (8.3-10.6); CREATININE FOR GFR 1.29 MG/DL (0.70-1.30); GLOMERULAR FILTRATION RATE 59.1 (>49); POTASSIUM SERUM 4.1 MMOL/L (3.5-5.1)
[2023-03-15 04:11] VITALS: BP 124/60; TEMP 97.5; O2SAT 95
[2023-03-15 05:51] LABS: HEMATOCRIT 40.4 % (42.0-52.0); HEMOGLOBIN 14.1 g/dl (13.5-17.5); MEAN CORPUSCULAR HEMOGLOBIN 32.4 pg (27.0-33.0); MEAN CORPUSCULAR HGB CONC 34.9 g/dl (32.0-36.5); MEAN CORPUSCULAR VOLUME 92.9 fl (80.0-96.0); PLATELET COUNT, AUTOMATED 194 10^3/uL (150-450); RED BLOOD COUNT 4.35 10^6/uL (4.30-6.10); WHITE BLOOD COUNT 7.3 10^3/uL (4.0-10.0)
[2023-03-15 06:27] LABS: BLOOD UREA NITROGEN 17 MG/DL (9-23); CALCIUM LEVEL 8.9 MG/DL (8.3-10.6); CARBON DIOXIDE LEVEL 29 MMOL/L (20-31); CHLORIDE LEVEL 103 MMOL/L (98-107); CREATININE FOR GFR 1.22 MG/DL (0.70-1.30); GLOMERULAR FILTRATION RATE > 60.0 (>49); GLUCOSE, FASTING 167 MG/DL (74-106); MAGNESIUM LEVEL 1.8 MG/DL (1.8-2.4); POTASSIUM SERUM 4.1 MMOL/L (3.5-5.1); SODIUM LEVEL 140 MMOL/L (136-145)
[2023-03-15 07:31] VITALS: BP 127/86; TEMP 97.1; O2SAT 97
[2023-03-15] MEDS: ENOXAPARIN 40MG/0.4ML SYRINGE (J1650 PER 10MG) SC SCH (08:29)
[2023-03-15] MEDS: DONEPEZIL 5 MG TAB PO SCH (08:29)
[2023-03-15] MEDS: BUMETANIDE 1 MG TAB PO SCH ×2 (08:30→18:07)
[2023-03-15] MEDS: MULTIVITAMINS/MINERALS THERAP 1 TAB PO SCH (08:30)
[2023-03-15] MEDS: THIAMINE 100 MG TAB PO SCH ×2 (08:30→21:12)
[2023-03-15] MEDS: ASPIRIN 325 MG TAB PO SCH (08:30)
[2023-03-15] MEDS: FOLIC ACID 1MG TAB PO SCH (08:30)
[2023-03-15] MEDS: LACTOBACILLUS ACIDOPHILUS CAP (BACID) PO SCH (08:30)
[2023-03-15] MEDS: MEMANTINE 5MG TABLET (NAMENDA) PO SCH ×2 (08:30→21:11)
[2023-03-15] MEDS: OMEPRAZOLE 20MG CAP PO SCH (08:30)
[2023-03-15] MEDS: MAGNESIUM OXIDE 400MG TAB (MAG-OX) PO SCH ×2 (08:31→21:11)
[2023-03-15] MEDS: CETIRIZINE (ZyrTEC) 10 MG TAB PO SCH (08:31)
[2023-03-15 11:38] VITALS: BP 131/90; TEMP 97.3; O2SAT 98
[2023-03-15] MEDS: METOPROLOL TART 50 MG TAB PO SCH ×2 (11:42→21:12)
[2023-03-15] MEDS ORDERED: JARD1TAB PO (13:26)
[2023-03-15] MEDS ORDERED: METF750T36 PO (13:26)
[2023-03-15] MEDS ORDERED: DEXTROSE 50% 50ML SYRINGE IV PRN (13:30)
[2023-03-15] MEDS ORDERED: GLUCAGON INJ 1MG VIAL SC PRN (13:30)
[2023-03-15] MEDS ORDERED: GLUCOSE 4GM CHEW TABLET PO PRN (13:30)
[2023-03-15] MEDS ORDERED: FARX1TAB3 PO (13:43)
[2023-03-15] MEDS: INSULIN LISPRO (NovoLOG) PER UNIT SC SCH (18:07)
[2023-03-15] MEDS: metFORMIN (GLUCOPHAGE) 500MG TAB PO SCH (18:07)
[2023-03-15 20:23] VITALS: BP 144/71; TEMP 97.5; O2SAT 97
[2023-03-15] MEDS ORDERED: INSULIN LISPRO (NovoLOG) PER UNIT SC SCH (21:00)
[2023-03-15] MEDS: FENOFIBRATE 145MG TABLET (TRICOR) PO SCH (21:12)
[2023-03-15] MEDS: ROSUVASTATIN 10 MG TAB (CRESTOR) PO SCH (21:12)
[2023-03-15] MEDS: POTASSIUM CHLORIDE 10MEQ SR TABLET PO SCH (21:13)
[2023-03-16 04:04] VITALS: BP 115/57; TEMP 97.8; O2SAT 95
[2023-03-16 05:46] LABS: HEMATOCRIT 38.5 % (42.0-52.0); HEMOGLOBIN 13.6 g/dl (13.5-17.5); MEAN CORPUSCULAR HEMOGLOBIN 32.6 pg (27.0-33.0); MEAN CORPUSCULAR HGB CONC 35.3 g/dl (32.0-36.5); MEAN CORPUSCULAR VOLUME 92.3 fl (80.0-96.0); PLATELET COUNT, AUTOMATED 203 10^3/uL (150-450); RED BLOOD COUNT 4.17 10^6/uL (4.30-6.10)
[2023-03-16 06:05] LABS: ALBUMIN 3.4 G/DL (3.2-5.2); ALKALINE PHOSPHATASE 50 U/L (46-116); ALT/SGPT 18 U/L (7.0-40); AST/SGOT 19 U/L (<34); BILIRUBIN,TOTAL 0.6 MG/DL (0.3-1.2); BLOOD UREA NITROGEN 22 MG/DL (9-23); CARBON DIOXIDE LEVEL 29 MMOL/L (20-31); CHLORIDE LEVEL 100 MMOL/L (98-107); CREATININE FOR GFR 1.21 MG/DL (0.70-1.30); GLOMERULAR FILTRATION RATE > 60.0 (>49); GLUCOSE, FASTING 175 MG/DL (74-106); MAGNESIUM LEVEL 1.5 MG/DL (1.8-2.4); POTASSIUM SERUM 4.1 MMOL/L (3.5-5.1); SODIUM LEVEL 137 MMOL/L (136-145)
[2023-03-16] MEDS ORDERED: PILL CUTTER 1 EACH XX PRN (07:05)
[2023-03-16 08:37] VITALS: BP 141/67; TEMP 96.7; O2SAT 98
[2023-03-16] MEDS: DONEPEZIL 5 MG TAB PO SCH (08:41)
[2023-03-16] MEDS: MULTIVITAMINS/MINERALS THERAP 1 TAB PO SCH (08:41)
[2023-03-16] MEDS: BUMETANIDE 1 MG TAB PO SCH (08:41)
[2023-03-16] MEDS: LACTOBACILLUS ACIDOPHILUS CAP (BACID) PO SCH (08:42)
[2023-03-16] MEDS: MEMANTINE 5MG TABLET (NAMENDA) PO SCH (08:42)
[2023-03-16] MEDS: OMEPRAZOLE 20MG CAP PO SCH (08:42)
[2023-03-16] MEDS: metFORMIN (GLUCOPHAGE) 500MG TAB PO SCH (08:43)
[2023-03-16 08:44] VITALS: BP 141/67
[2023-03-16] MEDS: ASPIRIN 325 MG TAB PO SCH (08:44)
[2023-03-16] MEDS: METOPROLOL TART 50 MG TAB PO SCH (08:44)
[2023-03-16] MEDS: THIAMINE 100 MG TAB PO SCH (08:44)
[2023-03-16] MEDS: FOLIC ACID 1MG TAB PO SCH (08:44)
[2023-03-16] MEDS: CETIRIZINE (ZyrTEC) 10 MG TAB PO SCH (08:44)
[2023-03-16] MEDS: INSULIN LISPRO (NovoLOG) PER UNIT SC SCH ×2 (08:49→12:10)
[2023-03-16] MEDS: ENOXAPARIN 40MG/0.4ML SYRINGE (J1650 PER 10MG) SC SCH (08:49)
[2023-03-16] MEDS ORDERED: DAPAGLIFLOZIN PROPANEDIOL 10MG TABLET (FARXIGA) PO SCH (09:00)
[2023-03-16] MEDS ORDERED: MAGNESIUM OXIDE 400MG TAB (MAG-OX) PO SCH (09:00)
[2023-03-16] MEDS ORDERED: FOLI1TAB11 PO (12:01)
[2023-03-16] MEDS ORDERED: METF-877 PO (12:01)
[2023-03-16] MEDS ORDERED: MAGN400T2 PO (12:01)
[2023-03-16] MEDS ORDERED: FARX1TAB3 PO (12:01)
== END 2023-03-16 16:35 | DRG 917 ==
LOC: M ED 17:33 → M ED INP 22:02 → M PCU 03-14 00:10
PROVIDERS: ADMIT Family Medicine; ATTEND Internal Medicine
DX: T38.3X2A Poisoning by insulin and oral hypoglycemic [antidiabetic] drugs, intentional self-harm, initial encounter (principal); G93.41 Metabolic encephalopathy; F32.2 Major depressive disorder, single episode, severe without psychotic features; I25.10 Atherosclerotic heart disease of native coronary artery without angina pectoris; E78.5 Hyperlipidemia, unspecified; I10 Essential (primary) hypertension; J44.9 Chronic obstructive pulmonary disease, unspecified; E11.649 Type 2 diabetes mellitus with hypoglycemia without coma; K21.9 Gastro-esophageal reflux disease without esophagitis; E83.42 Hypomagnesemia; F34.1 Dysthymic disorder; F41.9 Anxiety disorder, unspecified; T14.91XA Suicide attempt, initial encounter; F17.210 Nicotine dependence, cigarettes, uncomplicated; F10.129 Alcohol abuse with intoxication, unspecified; F03.90 Unspecified dementia, unspecified severity, without behavioral disturbance, psychotic disturbance, mood disturbance, and anxiety; Z79.82 Long term (current) use of aspirin; Z79.4 Long term (current) use of insulin; Z79.899 Other long term (current) drug therapy; Z88.1 Allergy status to other antibiotic agents; Z88.8 Allergy status to other drugs, medicaments and biological substances; Z91.040 Latex allergy status; Z91.048 Other nonmedicinal substance allergy status; Z95.5 Presence of coronary angioplasty implant and graft; Z89.022 Acquired absence of left finger(s)

== ENCOUNTER 2023-03-16 15:18 | Inpatient (IN) | payer MEDICARE ==
[~2023-03-16] VITALS: Ht 170.2 cm; Wt 97.0 kg
[~2023-03-16 15:18] MED LIST changes: +CALC600T86 PO; +FARX1TAB3 PO; +FOLI1TAB11 PO; +JARD1TAB PO; +METF-877 PO; +METF750T36 PO; +RISATAB3 PO; +VITMTA PO
[2023-03-16] MEDS ORDERED: ACETAMINOPHEN TAB 650MG DOSE (2X325MG) PO PRN (15:40)
[2023-03-16] MEDS ORDERED: MAALOX 30 ML SUSP *UDC PO PRN (15:40)
[2023-03-16] MEDS ORDERED: MOM 30ML SUSPENSION UDC PO PRN (15:40)
[2023-03-16 17:53] VITALS: BP 147/83; TEMP 97.6; O2SAT 97
[2023-03-16] MEDS ORDERED: metFORMIN (GLUCOPHAGE) 500MG TAB PO SCH (18:00)
[2023-03-16] MEDS ORDERED: DEXTROSE 50% 50ML SYRINGE IV PRN (19:10)
[2023-03-16] MEDS ORDERED: GLUCOSE 4GM CHEW TABLET PO PRN (19:10)
[2023-03-16] MEDS ORDERED: GLUCAGON INJ 1MG VIAL SC PRN (19:10)
[2023-03-16] MEDS ORDERED: PILL CUTTER 1 EACH XX PRN (19:30)
[2023-03-16] MEDS: INSULIN LISPRO (NovoLOG) PER UNIT SC SCH (20:07)
[2023-03-16] MEDS: ROSUVASTATIN 10 MG TAB (CRESTOR) PO SCH (20:08)
[2023-03-16] MEDS: POTASSIUM CHLORIDE 10MEQ SR TABLET PO SCH (20:08)
[2023-03-16] MEDS: MAGNESIUM OXIDE 400MG TAB (MAG-OX) PO SCH (20:08)
[2023-03-16] MEDS: MEMANTINE 5MG TABLET (NAMENDA) PO SCH (20:11)
[2023-03-16] MEDS: METOPROLOL TART 50 MG TAB PO SCH (20:12)
[2023-03-16] MEDS: FENOFIBRATE 145MG TABLET (TRICOR) PO SCH (20:12)
[2023-03-16] MEDS: BUMETANIDE 1 MG TAB PO SCH (20:13)
[2023-03-17 06:42] VITALS: BP 123/56; TEMP 97; O2SAT 98
[2023-03-17] MEDS: INSULIN LISPRO (NovoLOG) PER UNIT SC SCH ×4 (06:57→20:15)
[2023-03-17] MEDS: MAGNESIUM OXIDE 400MG TAB (MAG-OX) PO SCH ×2 (08:18→20:11)
[2023-03-17] MEDS: metFORMIN (GLUCOPHAGE) 500MG TAB PO SCH ×2 (08:18→17:01)
[2023-03-17] MEDS: MULTIVITAMINS/MINERALS THERAP 1 TAB PO SCH (08:18)
[2023-03-17] MEDS: LACTOBACILLUS ACIDOPHILUS CAP (BACID) PO SCH (08:18)
[2023-03-17] MEDS: ASPIRIN 325 MG TAB PO SCH (08:18)
[2023-03-17] MEDS: CETIRIZINE (ZyrTEC) 10 MG TAB PO SCH (08:19)
[2023-03-17] MEDS: OMEPRAZOLE 20MG CAP PO SCH (08:19)
[2023-03-17] MEDS: FOLIC ACID 1MG TAB PO SCH (08:19)
[2023-03-17] MEDS: MEMANTINE 5MG TABLET (NAMENDA) PO SCH ×2 (08:20→20:14)
[2023-03-17] MEDS: DAPAGLIFLOZIN PROPANEDIOL 10MG TABLET (FARXIGA) PO SCH (08:20)
[2023-03-17] MEDS: BUMETANIDE 1 MG TAB PO SCH ×2 (08:21→16:51)
[2023-03-17] MEDS: METOPROLOL TART 50 MG TAB PO SCH ×2 (08:22→20:10)
[2023-03-17] MEDS: DONEPEZIL 5 MG TAB PO SCH (08:22)
[2023-03-17] MEDS ORDERED: DAPAGLIFLOZIN PROPANEDIOL 10MG TABLET (FARXIGA) PO SCH (09:00)
[2023-03-17] MEDS ORDERED: MIRALAX *UNIT DOSE* 17GM PACKET PO PRN (09:55)
[2023-03-17] MEDS: DOCUSATE SODIUM 100MG CAPSULE PO SCH ×2 (11:55→20:15)
[2023-03-17 17:41] VITALS: BP 142/90; TEMP 96.9; O2SAT 98
[2023-03-17] MEDS: POTASSIUM CHLORIDE 10MEQ SR TABLET PO SCH (20:10)
[2023-03-17] MEDS: SENNA 8.6 MG TAB (SENOKOT) PO SCH (20:10)
[2023-03-17] MEDS: FENOFIBRATE 145MG TABLET (TRICOR) PO SCH (20:10)
[2023-03-17] MEDS: ROSUVASTATIN 10 MG TAB (CRESTOR) PO SCH (20:10)
[2023-03-17] MEDS: traZODone 50 MG TAB PO PRN (22:10)
[2023-03-18 06:15] VITALS: BP 132/76; TEMP 97.5; O2SAT 95
[2023-03-18] MEDS: INSULIN LISPRO (NovoLOG) PER UNIT SC SCH ×4 (06:38→20:32)
[2023-03-18] MEDS: DONEPEZIL 5 MG TAB PO SCH (08:50)
[2023-03-18] MEDS: MEMANTINE 5MG TABLET (NAMENDA) PO SCH ×2 (08:50→20:36)
[2023-03-18] MEDS: METOPROLOL TART 50 MG TAB PO SCH ×2 (08:51→20:38)
[2023-03-18] MEDS: DAPAGLIFLOZIN PROPANEDIOL 10MG TABLET (FARXIGA) PO SCH (08:51)
[2023-03-18] MEDS: OMEPRAZOLE 20MG CAP PO SCH (08:51)
[2023-03-18] MEDS: metFORMIN (GLUCOPHAGE) 500MG TAB PO SCH ×2 (08:52→17:49)
[2023-03-18] MEDS: DOCUSATE SODIUM 100MG CAPSULE PO SCH ×2 (08:52→20:29)
[2023-03-18] MEDS: CETIRIZINE (ZyrTEC) 10 MG TAB PO SCH (08:52)
[2023-03-18] MEDS: FOLIC ACID 1MG TAB PO SCH (08:52)
[2023-03-18] MEDS: ASPIRIN 325 MG TAB PO SCH (08:52)
[2023-03-18] MEDS: LACTOBACILLUS ACIDOPHILUS CAP (BACID) PO SCH (08:52)
[2023-03-18] MEDS: MULTIVITAMINS/MINERALS THERAP 1 TAB PO SCH (08:53)
[2023-03-18] MEDS: MAGNESIUM OXIDE 400MG TAB (MAG-OX) PO SCH ×2 (08:53→20:37)
[2023-03-18] MEDS: BUMETANIDE 1 MG TAB PO SCH ×2 (08:56→17:49)
[2023-03-18] MEDS ORDERED: OLANZapine ORAL DISINTEGRATING TAB 5MG PO PRN (11:25)
[2023-03-18] MEDS: SERTRALINE HCL 25 MG TABLET PO SCH (12:17)
[2023-03-18 18:17] VITALS: BP 151/65; TEMP 97; O2SAT 98
[2023-03-18] MEDS: ROSUVASTATIN 10 MG TAB (CRESTOR) PO SCH (20:36)
[2023-03-18] MEDS: DIVALPROEX 125 MG TAB PO SCH (20:36)
[2023-03-18] MEDS: SENNA 8.6 MG TAB (SENOKOT) PO SCH (20:36)
[2023-03-18] MEDS: traZODone 50 MG TAB PO PRN (20:36)
[2023-03-18] MEDS: DOXYCYCLINE HYCLATE 100MG TABLET PO SCH (20:37)
[2023-03-18] MEDS: POTASSIUM CHLORIDE 10MEQ SR TABLET PO SCH (20:37)
[2023-03-18] MEDS: FENOFIBRATE 145MG TABLET (TRICOR) PO SCH (20:38)
[2023-03-18] MEDS: BACITRACIN OINTMENT 30GM TUBE TOP SCH (21:21)
[2023-03-19 06:18] VITALS: BP 119/69; TEMP 97.6; O2SAT 97
[2023-03-19] MEDS: INSULIN LISPRO (NovoLOG) PER UNIT SC SCH ×4 (06:46→20:17)
[2023-03-19] MEDS: metFORMIN (GLUCOPHAGE) 500MG TAB PO SCH ×2 (07:43→17:33)
[2023-03-19 08:12] VITALS: BP 126/84
[2023-03-19] MEDS: DOXYCYCLINE HYCLATE 100MG TABLET PO SCH ×2 (08:13→20:15)
[2023-03-19] MEDS: MEMANTINE 5MG TABLET (NAMENDA) PO SCH ×2 (08:13→20:16)
[2023-03-19] MEDS: BUMETANIDE 1 MG TAB PO SCH ×2 (08:13→17:37)
[2023-03-19] MEDS: METOPROLOL TART 50 MG TAB PO SCH ×2 (08:14→20:16)
[2023-03-19] MEDS: CETIRIZINE (ZyrTEC) 10 MG TAB PO SCH (08:14)
[2023-03-19] MEDS: MULTIVITAMINS/MINERALS THERAP 1 TAB PO SCH (08:14)
[2023-03-19] MEDS: DAPAGLIFLOZIN PROPANEDIOL 10MG TABLET (FARXIGA) PO SCH (08:14)
[2023-03-19] MEDS: OMEPRAZOLE 20MG CAP PO SCH (08:14)
[2023-03-19] MEDS: LACTOBACILLUS ACIDOPHILUS CAP (BACID) PO SCH (08:15)
[2023-03-19] MEDS: SERTRALINE HCL 25 MG TABLET PO SCH (08:15)
[2023-03-19] MEDS: MAGNESIUM OXIDE 400MG TAB (MAG-OX) PO SCH ×2 (08:15→20:16)
[2023-03-19] MEDS: DONEPEZIL 5 MG TAB PO SCH (08:15)
[2023-03-19] MEDS: FOLIC ACID 1MG TAB PO SCH (08:15)
[2023-03-19] MEDS: ASPIRIN 325 MG TAB PO SCH (08:15)
[2023-03-19] MEDS: DOCUSATE SODIUM 100MG CAPSULE PO SCH ×2 (08:17→20:16)
[2023-03-19] MEDS: BACITRACIN OINTMENT 30GM TUBE TOP SCH ×2 (09:49→20:15)
[2023-03-19 18:00] VITALS: BP 153/74; TEMP 95.6; O2SAT 98
[2023-03-19] MEDS: DIVALPROEX 125 MG TAB PO SCH (20:15)
[2023-03-19] MEDS: FENOFIBRATE 145MG TABLET (TRICOR) PO SCH (20:16)
[2023-03-19] MEDS: ROSUVASTATIN 10 MG TAB (CRESTOR) PO SCH (20:16)
[2023-03-19] MEDS: SENNA 8.6 MG TAB (SENOKOT) PO SCH (20:16)
[2023-03-19] MEDS: POTASSIUM CHLORIDE 10MEQ SR TABLET PO SCH (20:17)
[2023-03-19] MEDS: traZODone 50 MG TAB PO PRN (22:11)
[2023-03-20 06:04] VITALS: BP 132/68; TEMP 98; O2SAT 96
[2023-03-20] MEDS: INSULIN LISPRO (NovoLOG) PER UNIT SC SCH ×4 (06:32→20:29)
[2023-03-20 08:21] VITALS: BP 120/70
[2023-03-20] MEDS: BUMETANIDE 1 MG TAB PO SCH ×2 (08:22→17:19)
[2023-03-20] MEDS: MAGNESIUM OXIDE 400MG TAB (MAG-OX) PO SCH ×2 (08:22→20:17)
[2023-03-20] MEDS: metFORMIN (GLUCOPHAGE) 500MG TAB PO SCH ×2 (08:23→17:20)
[2023-03-20] MEDS: LACTOBACILLUS ACIDOPHILUS CAP (BACID) PO SCH (08:23)
[2023-03-20] MEDS: OMEPRAZOLE 20MG CAP PO SCH (08:23)
[2023-03-20] MEDS: DAPAGLIFLOZIN PROPANEDIOL 10MG TABLET (FARXIGA) PO SCH (08:24)
[2023-03-20] MEDS: DOXYCYCLINE HYCLATE 100MG TABLET PO SCH ×2 (08:24→20:17)
[2023-03-20] MEDS: ASPIRIN 325 MG TAB PO SCH (08:24)
[2023-03-20] MEDS: MULTIVITAMINS/MINERALS THERAP 1 TAB PO SCH (08:24)
[2023-03-20] MEDS: DONEPEZIL 5 MG TAB PO SCH (08:24)
[2023-03-20] MEDS: FOLIC ACID 1MG TAB PO SCH (08:25)
[2023-03-20] MEDS: CETIRIZINE (ZyrTEC) 10 MG TAB PO SCH (08:25)
[2023-03-20] MEDS: MEMANTINE 5MG TABLET (NAMENDA) PO SCH ×2 (08:25→20:17)
[2023-03-20] MEDS: SERTRALINE HCL 25 MG TABLET PO SCH (08:26)
[2023-03-20] MEDS: METOPROLOL TART 50 MG TAB PO SCH ×2 (08:26→20:17)
[2023-03-20] MEDS: DOCUSATE SODIUM 100MG CAPSULE PO SCH ×2 (08:27→20:29)
[2023-03-20] MEDS: BACITRACIN OINTMENT 30GM TUBE TOP SCH ×2 (08:29→20:31)
[2023-03-20 18:08] VITALS: BP 135/61; TEMP 97.2; O2SAT 97
[2023-03-20] MEDS: FENOFIBRATE 145MG TABLET (TRICOR) PO SCH (20:16)
[2023-03-20] MEDS: ROSUVASTATIN 10 MG TAB (CRESTOR) PO SCH (20:16)
[2023-03-20] MEDS: POTASSIUM CHLORIDE 10MEQ SR TABLET PO SCH (20:17)
[2023-03-20] MEDS: SENNA 8.6 MG TAB (SENOKOT) PO SCH (20:17)
[2023-03-20] MEDS: DIVALPROEX 125 MG TAB PO SCH (20:18)
[2023-03-20] MEDS: traZODone 50 MG TAB PO PRN (22:51)
[2023-03-21 06:34] VITALS: BP 132/78; TEMP 96.5; O2SAT 98
[2023-03-21] MEDS: INSULIN LISPRO (NovoLOG) PER UNIT SC SCH ×4 (06:37→20:10)
[2023-03-21] MEDS: DOCUSATE SODIUM 100MG CAPSULE PO SCH ×2 (08:15→20:10)
[2023-03-21] MEDS: FOLIC ACID 1MG TAB PO SCH (08:15)
[2023-03-21] MEDS: MAGNESIUM OXIDE 400MG TAB (MAG-OX) PO SCH ×2 (08:16→20:07)
[2023-03-21] MEDS: DONEPEZIL 5 MG TAB PO SCH (08:16)
[2023-03-21] MEDS: LACTOBACILLUS ACIDOPHILUS CAP (BACID) PO SCH (08:16)
[2023-03-21] MEDS: MULTIVITAMINS/MINERALS THERAP 1 TAB PO SCH (08:16)
[2023-03-21] MEDS: ASPIRIN 325 MG TAB PO SCH (08:16)
[2023-03-21] MEDS: BUMETANIDE 1 MG TAB PO SCH ×2 (08:16→17:16)
[2023-03-21] MEDS: OMEPRAZOLE 20MG CAP PO SCH (08:16)
[2023-03-21] MEDS: DAPAGLIFLOZIN PROPANEDIOL 10MG TABLET (FARXIGA) PO SCH (08:16)
[2023-03-21] MEDS: metFORMIN (GLUCOPHAGE) 500MG TAB PO SCH ×2 (08:17→17:16)
[2023-03-21] MEDS: METOPROLOL TART 50 MG TAB PO SCH ×2 (08:17→20:07)
[2023-03-21] MEDS: SERTRALINE HCL 25 MG TABLET PO SCH (08:17)
[2023-03-21] MEDS: MEMANTINE 5MG TABLET (NAMENDA) PO SCH ×2 (08:17→20:06)
[2023-03-21] MEDS: CETIRIZINE (ZyrTEC) 10 MG TAB PO SCH (08:17)
[2023-03-21] MEDS: DOXYCYCLINE HYCLATE 100MG TABLET PO SCH ×2 (08:17→20:07)
[2023-03-21] MEDS: BACITRACIN OINTMENT 30GM TUBE TOP SCH (08:18)
[2023-03-21 16:31] VITALS: BP 122/66; TEMP 97.1; O2SAT 98
[2023-03-21] MEDS: FENOFIBRATE 145MG TABLET (TRICOR) PO SCH (20:06)
[2023-03-21] MEDS: POTASSIUM CHLORIDE 10MEQ SR TABLET PO SCH (20:07)
[2023-03-21] MEDS: DIVALPROEX 125 MG TAB PO SCH (20:07)
[2023-03-21] MEDS: ROSUVASTATIN 10 MG TAB (CRESTOR) PO SCH (20:07)
[2023-03-21] MEDS: SENNA 8.6 MG TAB (SENOKOT) PO SCH (20:10)
[2023-03-21] MEDS ORDERED: FARX1TAB3 PO (22:41)
[2023-03-21] MEDS ORDERED: FOLI1TAB11 PO (22:41)
[2023-03-21] MEDS ORDERED: SERT-141 PO (22:41)
[2023-03-21] MEDS ORDERED: FENO160T10 PO (22:41)
[2023-03-21] MEDS ORDERED: POTA-298 PO (22:41)
[2023-03-21] MEDS ORDERED: DONE10TA90 PO (22:41)
[2023-03-21] MEDS ORDERED: RISATAB3 PO (22:41)
[2023-03-21] MEDS ORDERED: VASC1CAP2 PO (22:41)
[2023-03-21] MEDS ORDERED: METO50TA7 PO (22:41)
[2023-03-21] MEDS ORDERED: ROSU40TA4 PO (22:41)
[2023-03-21] MEDS ORDERED: COLA100C5 PO (22:41)
[2023-03-21] MEDS ORDERED: MAGN400T2 PO (22:41)
[2023-03-21] MEDS ORDERED: ASPI-1 PO (22:41)
[2023-03-21] MEDS ORDERED: METF-877 PO (22:41)
[2023-03-21] MEDS ORDERED: CETI10TA PO (22:41)
[2023-03-21] MEDS ORDERED: MEMA28CA12 PO (22:41)
[2023-03-21] MEDS ORDERED: VITMTA PO (22:41)
[2023-03-21] MEDS ORDERED: BUME2TAB3 PO (22:41)
[2023-03-21] MEDS ORDERED: DOXY100T PO (22:41)
[2023-03-21] MEDS ORDERED: DEPA1TAB PO (22:41)
[2023-03-21] MEDS ORDERED: CALC600T86 PO (22:41)
[2023-03-21] MEDS ORDERED: ALPH600C PO (22:41)
[2023-03-21] MEDS ORDERED: OMEP1CAP73 PO (22:41)
[2023-03-21] MEDS: traZODone 50 MG TAB PO PRN (22:53)
[2023-03-22] MEDS: INSULIN LISPRO (NovoLOG) PER UNIT SC SCH (06:38)
[2023-03-22 06:47] VITALS: BP 147/82; TEMP 96.3; O2SAT 96
[2023-03-22] MEDS: ASPIRIN 325 MG TAB PO SCH (08:11)
[2023-03-22] MEDS: LACTOBACILLUS ACIDOPHILUS CAP (BACID) PO SCH (08:11)
[2023-03-22] MEDS: OMEPRAZOLE 20MG CAP PO SCH (08:11)
[2023-03-22 08:12] VITALS: BP 147/82
[2023-03-22] MEDS: CETIRIZINE (ZyrTEC) 10 MG TAB PO SCH (08:12)
[2023-03-22] MEDS: metFORMIN (GLUCOPHAGE) 500MG TAB PO SCH (08:12)
[2023-03-22] MEDS: DOXYCYCLINE HYCLATE 100MG TABLET PO SCH (08:12)
[2023-03-22] MEDS: DAPAGLIFLOZIN PROPANEDIOL 10MG TABLET (FARXIGA) PO SCH (08:12)
[2023-03-22] MEDS: METOPROLOL TART 50 MG TAB PO SCH (08:12)
[2023-03-22] MEDS: MULTIVITAMINS/MINERALS THERAP 1 TAB PO SCH (08:12)
[2023-03-22] MEDS: MAGNESIUM OXIDE 400MG TAB (MAG-OX) PO SCH (08:12)
[2023-03-22] MEDS: FOLIC ACID 1MG TAB PO SCH (08:12)
[2023-03-22] MEDS: MEMANTINE 5MG TABLET (NAMENDA) PO SCH (08:13)
[2023-03-22] MEDS: BUMETANIDE 1 MG TAB PO SCH (08:13)
[2023-03-22] MEDS: DONEPEZIL 5 MG TAB PO SCH (08:13)
[2023-03-22] MEDS: DOCUSATE SODIUM 100MG CAPSULE PO SCH (08:13)
[2023-03-22] MEDS: SERTRALINE HCL 25 MG TABLET PO SCH (08:14)
== END 2023-03-22 11:26 | disposition home or self-care (01) | DRG 885 ==
LOC: M PSY 16:32
PROVIDERS: ADMIT Psychiatry & Neurology Psychiatry; ATTEND Student in an Organized Health Care Education/Training Program
DX: F33.2 Major depressive disorder, recurrent severe without psychotic features (principal); R45.851 Suicidal ideations; F10.20 Alcohol dependence, uncomplicated; F34.1 Dysthymic disorder; Z88.8 Allergy status to other drugs, medicaments and biological substances; Z79.82 Long term (current) use of aspirin; Z79.899 Other long term (current) drug therapy; E11.65 Type 2 diabetes mellitus with hyperglycemia; I10 Essential (primary) hypertension; K21.9 Gastro-esophageal reflux disease without esophagitis; F03.90 Unspecified dementia, unspecified severity, without behavioral disturbance, psychotic disturbance, mood disturbance, and anxiety; I25.10 Atherosclerotic heart disease of native coronary artery without angina pectoris

== ENCOUNTER 2023-12-20 19:47 | Inpatient (IN) | payer MEDICARE ==
[~2023-12-20] VITALS: Ht 165.1 cm; Wt 83.4 kg
[~2023-12-20 19:47] MED LIST changes: +DEPA1TAB PO; +DOXY100T PO; +EZET10TA58 PO; +SERT-141 PO; -ZETI10TA16 PO
[2023-12-20 20:30] LABS: HEMATOCRIT 42.6 % (42.0-52.0); HEMOGLOBIN 15.2 g/dl (13.5-17.5); MEAN CORPUSCULAR HEMOGLOBIN 33.3 pg (27.0-33.0); MEAN CORPUSCULAR HGB CONC 35.7 g/dl (32.0-36.5); MEAN CORPUSCULAR VOLUME 93.4 fl (80.0-96.0); PLATELET COUNT, AUTOMATED 242 10^3/uL (150-450); RED BLOOD COUNT 4.56 10^6/uL (4.30-6.10); WHITE BLOOD COUNT 9.5 10^3/uL (4.0-10.0)
[2023-12-20 21:00] LABS: SALICYLATE LEVEL < 3.0 MG/DL (<30)
[2023-12-20 21:04] LABS: ALBUMIN 3.6 G/DL (3.2-5.2); ALKALINE PHOSPHATASE 49 U/L (46-116); ALT/SGPT 29 U/L (7.0-40); AST/SGOT 32 U/L (<34); BILIRUBIN,DIRECT 0.1 MG/DL (<0.4); BILIRUBIN,TOTAL 0.4 MG/DL (0.3-1.2); BLOOD UREA NITROGEN 25 MG/DL (9-23); CALCIUM LEVEL 8.5 MG/DL (8.3-10.6); CARBON DIOXIDE LEVEL 25 MMOL/L (20-31); CHLORIDE LEVEL 99 MMOL/L (98-107); CREATININE FOR GFR 1.16 MG/DL (0.70-1.30); GLOMERULAR FILTRATION RATE > 60.0 (>49); GLUCOSE, FASTING 164 MG/DL (74-106); POTASSIUM SERUM 3.6 MMOL/L (3.5-5.1); SODIUM LEVEL 135 MMOL/L (136-145); TOTAL PROTEIN 6.9 G/DL (5.7-8.2)
[2023-12-20 22:01] LABS: AMPHETAMINES LEVEL URINE NEGATIVE (NEGATIVE); BARBITURATES URINE NEGATIVE (NEGATIVE); BENZODIAZEPINES URINE NEGATIVE (NEGATIVE); CANNABINOIDS URINE NEGATIVE (NEGATIVE); COCAINE METABOLITE URINE NEGATIVE (NEGATIVE); METHADONE URINE NEGATIVE (NEGATIVE); OPIATES URINE NEGATIVE (NEGATIVE); PHENCYCLIDINE URINE NEGATIVE (NEGATIVE)
[2023-12-21] MEDS ORDERED: diphenhydrAMINE 25MG CAP PO PRN (04:20)
[2023-12-21] MEDS ORDERED: MAALOX 30 ML SUSP *UDC PO PRN (04:20)
[2023-12-21] MEDS ORDERED: IBUPROFEN 400MG TAB PO PRN (04:20)
[2023-12-21] MEDS ORDERED: traZODone 50 MG TAB PO PRN (04:20)
[2023-12-21] MEDS ORDERED: MOM 30ML SUSPENSION UDC PO PRN (04:20)
[2023-12-21 05:43] VITALS: BP 145/81; TEMP 97.5; O2SAT 94
[2023-12-21] MEDS ORDERED: DEXTROSE 50% 50ML SYRINGE IV PRN (05:55)
[2023-12-21] MEDS ORDERED: GLUCAGON INJ 1MG VIAL SC PRN (05:55)
[2023-12-21] MEDS ORDERED: GLUCOSE 4GM CHEW TABLET PO PRN (05:55)
[2023-12-21] MEDS ORDERED: LORazepam 2 MG TAB PO PRN (06:00)
[2023-12-21 06:01] VITALS: BP 145/81
[2023-12-21] MEDS: THIAMINE 100 MG TAB PO SCH (06:45)
[2023-12-21] MEDS: INSULIN LISPRO (NovoLOG) PER UNIT SC SCH ×2 (06:49→20:41)
[2023-12-21] MEDS: MULTIVITAMINS/MINERALS THERAP 1 TAB PO SCH (08:08)
[2023-12-21] MEDS: FOLIC ACID 1MG TAB PO SCH (08:08)
[2023-12-21] MEDS ORDERED: CETI-24 PO (11:01)
[2023-12-21] MEDS ORDERED: CALC600T86 PO (11:01)
[2023-12-21] MEDS ORDERED: OMEP-173 PO (11:01)
[2023-12-21] MEDS ORDERED: MAGN400T2 PO (11:01)
[2023-12-21] MEDS ORDERED: POTA-151 PO (11:01)
[2023-12-21] MEDS ORDERED: FOLI1TAB11 PO (11:01)
[2023-12-21] MEDS ORDERED: FARX1TAB3 PO (11:01)
[2023-12-21] MEDS ORDERED: SERT-141 PO (11:01)
[2023-12-21] MEDS ORDERED: METF-839 PO (11:01)
[2023-12-21] MEDS ORDERED: MULT-40 PO (11:01)
[2023-12-21] MEDS ORDERED: NAME28CA PO (11:01)
[2023-12-21] MEDS ORDERED: HOME MED LIST COMPLETE! XX SCH (11:10)
[2023-12-21] MEDS: LEVEMIR (INSULIN DETEMIR) 1 UNITS/0.01ML SC SCH (13:16)
[2023-12-21] MEDS: VENLAFAXINE **XR** 37.5 MG CAPSULE PO SCH (13:16)
[2023-12-21] MEDS: ASPIRIN 325 MG TAB PO SCH (13:16)
[2023-12-21] MEDS: OMEPRAZOLE 20MG CAP PO SCH (13:17)
[2023-12-21] MEDS: ACETAMINOPHEN TAB 650MG DOSE (2X325MG) PO PRN (13:17)
[2023-12-21] MEDS: CETIRIZINE (ZyrTEC) 10 MG TAB PO SCH (13:17)
[2023-12-21] MEDS: LACTOBACILLUS ACIDOPHILUS CAP (BACID) PO SCH (13:19)
[2023-12-21] MEDS: metFORMIN (GLUCOPHAGE) 500MG TAB PO SCH (13:21)
[2023-12-21] MEDS: BUMETANIDE 1 MG TAB PO SCH (13:24)
[2023-12-21] MEDS: METOPROLOL TART 50 MG TAB PO SCH (13:25)
[2023-12-21 14:00] VITALS: BP 150/72
[2023-12-21] MEDS: MAGNESIUM OXIDE 400MG TAB (MAG-OX) PO SCH (16:55)
[2023-12-21] MEDS: DAPAGLIFLOZIN PROPANEDIOL 10MG TABLET (FARXIGA) PO SCH (16:58)
[2023-12-21 17:40] VITALS: BP 150/72; TEMP 97.1; O2SAT 97
[2023-12-21] MEDS: ROSUVASTATIN 10 MG TAB (CRESTOR) PO SCH (20:41)
[2023-12-21] MEDS: POTASSIUM CHLORIDE 10MEQ SR TABLET PO SCH (20:41)
[2023-12-21 21:00] VITALS: BP 135/88
[2023-12-22 06:00] VITALS: BP 122/66
[2023-12-22 06:18] VITALS: BP 122/66; TEMP 97.1; O2SAT 99
[2023-12-22] MEDS: THIAMINE 100 MG TAB PO SCH (08:29)
[2023-12-22 14:00] VITALS: BP 143/68
[2023-12-22 14:59] VITALS: BP 143/68; TEMP 96.7; O2SAT 98
[2023-12-22 20:23] VITALS: BP 144/70
[2023-12-22 21:53] VITALS: BP 113/66
[2023-12-22] MEDS: CARBAMIDE PEROXIDE 6.5% OTIC SOLN 15ML AU SCH (22:12)
[2023-12-23 06:24] VITALS: BP 114/58; TEMP 97.4; O2SAT 96
[2023-12-23 06:29] VITALS: BP 114/58
[2023-12-23 06:59] LABS: CHOLESTEROL RISK RATIO 5.04 (<5); HDL CHOLESTEROL 34.1 MG/DL (>40); LDL CHOLESTEROL 74.5 MG/DL (<100); NON-HDL-C 137.9 MG/DL
[2023-12-23 14:53] VITALS: BP 109/59; TEMP 97; O2SAT 99
[2023-12-23 15:00] VITALS: BP 109/59
[2023-12-23 20:25] VITALS: BP 132/71
[2023-12-23 20:30] VITALS: BP 132/71
[2023-12-24 06:33] VITALS: BP 127/77; TEMP 97.5; O2SAT 98
[2023-12-24] MEDS: VASCEPA 1 GM PO SCH (09:00)
[2023-12-24 16:32] VITALS: BP 124/63; TEMP 98.2; O2SAT 99
[2023-12-25 06:18] VITALS: BP 125/60; TEMP 97.3; O2SAT 98
[2023-12-25 08:54] VITALS: BP 116/61
[2023-12-25] MEDS: VENLAFAXINE **XR** 37.5 MG CAPSULE PO ONE (11:33)
[2023-12-25 17:28] VITALS: BP 137/66; TEMP 97; O2SAT 98
[2023-12-26 06:16] VITALS: BP 116/74; TEMP 97; O2SAT 99
[2023-12-26] MEDS: VENLAFAXINE **XR** 37.5 MG CAPSULE PO SCH (08:52)
[2023-12-26] MEDS ORDERED: VENL75CA47 PO (09:55)
[2023-12-26 17:22] VITALS: BP 144/69
== END 2023-12-26 17:57 | disposition home or self-care (01) | DRG 885 ==
LOC: M ED 19:47 → M ED INP 12-21 04:19 → M PSY 12-21 05:07
PROVIDERS: ADMIT Student in an Organized Health Care Education/Training Program; ATTEND Student in an Organized Health Care Education/Training Program
DX: F33.1 Major depressive disorder, recurrent, moderate (principal); R45.851 Suicidal ideations; R41.9 Unspecified symptoms and signs involving cognitive functions and awareness; F10.10 Alcohol abuse, uncomplicated; Z91.040 Latex allergy status; Z88.8 Allergy status to other drugs, medicaments and biological substances; Z79.899 Other long term (current) drug therapy; Z79.82 Long term (current) use of aspirin; Z79.4 Long term (current) use of insulin; F03.90 Unspecified dementia, unspecified severity, without behavioral disturbance, psychotic disturbance, mood disturbance, and anxiety; E11.9 Type 2 diabetes mellitus without complications; I25.10 Atherosclerotic heart disease of native coronary artery without angina pectoris; I10 Essential (primary) hypertension; K21.9 Gastro-esophageal reflux disease without esophagitis

== ENCOUNTER → 2023-12-28 | Outpatient (CLI) | payer MEDICARE, MEDICAID ==
[~2023-12-28] MED LIST changes: +CETI-24 PO; +METF-839 PO; +MULT-40 PO; +NAME28CA PO; +OMEP-173 PO; +POTA-151 PO; +VENL75CA47 PO
== END ==
LOC: M OUTALCOH 07:29
PROVIDERS: ATTEND Psychiatry & Neurology Psychiatry
DX: F10.20 Alcohol dependence, uncomplicated (principal); F17.200 Nicotine dependence, unspecified, uncomplicated

== ENCOUNTER 2024-01-23 16:00 | Outpatient (RCR) | payer MEDICARE, MEDICAID ==
[~2024-01-23 16:00] MED LIST changes: -ROSU40TA4 PO; +ROSU40TA63 PO
== END 2024-02-02 ==
LOC: M OUTALCOH 16:00
PROVIDERS: ATTEND Psychiatry & Neurology Psychiatry
DX: F10.20 Alcohol dependence, uncomplicated (principal); F17.200 Nicotine dependence, unspecified, uncomplicated
CPT/HCPCS: 90834; G0396

== ENCOUNTER 2024-09-20 18:24 | Inpatient (IN) | payer MEDICARE, MEDICAID ==
[~2024-09-20] VITALS: Ht 170.2 cm; Wt 81.0 kg
[~2024-09-20 18:24] MED LIST changes: -ROSU40TA63 PO; +ROSU40TA81 PO
[2024-09-20] MEDS: NS (Normal Saline) 0.9% 1,000 ML IV ONE (19:47)
[2024-09-20 20:00] LABS: BASO % 0.1 % (0.0-1.0); EOS % 0.2 % (0.0-3.0); HEMATOCRIT 42.3 % (42.0-52.0); HEMOGLOBIN 15.3 g/dl (13.5-17.5); LYMPH # 1.2 10^3/uL (1.5-5.0); LYMPH % 10.5 % (24.0-44.0); MEAN CORPUSCULAR HEMOGLOBIN 32.8 pg (27.0-33.0); MEAN CORPUSCULAR HGB CONC 36.2 g/dl (32.0-36.5); MEAN CORPUSCULAR VOLUME 90.8 fl (80.0-96.0); MONO % 9.2 % (2.0-8.0); NEUTROPHILS # 8.9 10^3/uL (1.5-8.5); NEUTROPHILS % 79.1 % (36.0-66.0); PLATELET COUNT, AUTOMATED 254 10^3/uL (150-450); RED BLOOD COUNT 4.66 10^6/uL (4.30-6.10); WHITE BLOOD COUNT 11.3 10^3/uL (4.0-10.0)
[2024-09-20 20:27] LABS: CK-MB VALUE MASS 20.2 NG/ML (<3.6); ETHYL ALCOHOL (ETHANOL) 0.007 % (0.000-0.010)
[2024-09-20 20:29] LABS: ALBUMIN 3.9 G/DL (3.2-5.2); ALKALINE PHOSPHATASE 51 U/L (40-129); ALT/SGPT 59 U/L (7.0-40); AST/SGOT 108 U/L (<34); BILIRUBIN,DIRECT 0.3 MG/DL (<0.4); BILIRUBIN,TOTAL 0.9 MG/DL (0.3-1.2); BLOOD UREA NITROGEN 20 MG/DL (9-23); CALCIUM LEVEL 8.8 MG/DL (8.3-10.6); CARBON DIOXIDE LEVEL 27 MMOL/L (20-31); CHLORIDE LEVEL 96 MMOL/L (98-107); CREATININE FOR GFR 0.85 MG/DL (0.70-1.30); GLOMERULAR FILTRATION RATE > 60.0 (>49); GLUCOSE, FASTING 130 MG/DL (74-106); POTASSIUM SERUM 4.1 MMOL/L (3.5-5.1); SALICYLATE LEVEL < 3.0 MG/DL (<30); SODIUM LEVEL 137 MMOL/L (136-145); TOTAL PROTEIN 6.9 G/DL (5.7-8.2)
[2024-09-20 20:30] LABS: THYROID STIMULATING HORMONE 1.315 uIU/ML (0.55-4.78)
[2024-09-20 20:46] LABS: CPK CREATINE PHOSPHOKINASE 2213 U/L (46-171); MB/CK RELATIVE INDEX 0.91 (< OR =4)
[2024-09-20] MEDS ORDERED: ISOVUE-370 76% 100ML VIAL As Ordered ONE (21:19)
[2024-09-20] MEDS: ONDANSETRON 4MG 2ML VIAL IV ONE (22:22)
[2024-09-20] MEDS: MORPHINE 4 MG/ML 1ML VIAL IV PRN (22:23)
[2024-09-20] MEDS: NS (Normal Saline) 0.9% 1,000 ML IV SCH (22:24)
[2024-09-20] MEDS: MIDAZOLAM INJ 2MG/2ML VIAL IV ONE (22:24)
[2024-09-21] VITALS (31 sets, daily range): BP systolic 114–151; BP diastolic 69–87; TEMP 98.2–101.2; O2SAT 85–99
[2024-09-21] MEDS ORDERED: ONDANSETRON 4MG ORAL DISINTEGRATING TAB PO PRN (00:20)
[2024-09-21] MEDS ORDERED: LORazepam 2 MG TAB PO PRN (00:20)
[2024-09-21] MEDS ORDERED: DEXTROSE 50% 50ML SYRINGE IV PRN (00:20)
[2024-09-21] MEDS ORDERED: MAALOX 30 ML SUSP *UDC PO PRN (00:20)
[2024-09-21] MEDS ORDERED: MOM 30ML SUSPENSION UDC PO PRN (00:20)
[2024-09-21] MEDS ORDERED: GLUCOSE 4 GM CHEW PO PRN (00:20)
[2024-09-21] MEDS ORDERED: NICOTINE 21MG/24HR 1 EA TRANSDERMAL TD PRN (00:20)
[2024-09-21] MEDS ORDERED: GLUCAGON INJ 1MG VIAL SC PRN (00:20)
[2024-09-21] MEDS ORDERED: NALOXONE INJ 0.4MG/1ML VIAL IV PRN (00:20)
[2024-09-21] MEDS ORDERED: EFFE75CA2 PO (00:21)
[2024-09-21] MEDS ORDERED: PREDOPD OU (00:28)
[2024-09-21] MEDS ORDERED: CEFD1CAP9 PO (00:28)
[2024-09-21] MEDS ORDERED: BASA100I SC (00:28)
[2024-09-21] MEDS ORDERED: HOME MED LIST COMPLETE! XX SCH ×2 (00:30→00:35)
[2024-09-21] MEDS: NS (Normal Saline) 0.9% 1,000 ML IV SCH (01:03)
[2024-09-21 01:27] LABS: MAGNESIUM LEVEL 1.3 MG/DL (1.8-2.4)
[2024-09-21 01:29] LABS: C REACTIVE PROTEIN QUANTITATIV 4.41 MG/DL (<1.0)
[2024-09-21 01:30] LABS: KETONE, URINE AUTO RFX TRACE mg/dL (NEGATIVE); LEUKOCYTE ESTERASE UR AUTO RFX NEGATIVE (NEGATIVE); NITRITE, URINE AUTO RFX NEGATIVE (NEGATIVE); RBC, URINE AUTO RFX 1 /HPF (0-3); SQUAM EPITHELIAL CELL UR AURFX 0 /HPF (0-6); WBC, URINE AUTO RFX 1 /HPF (0-3)
[2024-09-21] MEDS: OXAZEPAM 15MG CAP PO SCH (01:35)
[2024-09-21] MEDS: THIAMINE 100 MG TAB PO SCH (01:35)
[2024-09-21 01:37] LABS: ERYTHROCYTE SEDIMENTATION RATE 10 mm/hr (0-20)
[2024-09-21 01:41] LABS: PROCALCITONIN 0.08 ng/ml
[2024-09-21] MEDS: METHOCARBAMOL 1,000 MG/10 ML VIAL IV ONE (01:56)
[2024-09-21] MEDS: ACETAMINOPHEN 325 MG TAB PO PRN (02:06)
[2024-09-21 03:05] LABS: HEMATOCRIT 39.5 % (42.0-52.0); HEMOGLOBIN 14.4 g/dl (13.5-17.5); MEAN CORPUSCULAR HEMOGLOBIN 33.2 pg (27.0-33.0); MEAN CORPUSCULAR HGB CONC 36.5 g/dl (32.0-36.5); PLATELET COUNT, AUTOMATED 236 10^3/uL (150-450); RED BLOOD COUNT 4.34 10^6/uL (4.30-6.10); WHITE BLOOD COUNT 9.5 10^3/uL (4.0-10.0)
[2024-09-21] MEDS: MAGNESIUM OXIDE 400MG TAB (MAG-OX) PO ONE (03:20)
[2024-09-21] MEDS: MAG SULF 1GM/100ML (MAG RUN) 1 GM in IV 1 EA IV SCH ×2 (03:21→08:34)
[2024-09-21] MEDS: REMDESIVIR 200 MG in NS 250 ML IV ONE (03:21)
[2024-09-21 03:36] LABS: ALBUMIN 3.2 G/DL (3.2-5.2); ALKALINE PHOSPHATASE 45 U/L (40-129); ALT/SGPT 52 U/L (7.0-40); AST/SGOT 114 U/L (<34); BILIRUBIN,TOTAL 0.7 MG/DL (0.3-1.2); BLOOD UREA NITROGEN 20 MG/DL (9-23); CALCIUM LEVEL 8.5 MG/DL (8.3-10.6); CARBON DIOXIDE LEVEL 26 MMOL/L (20-31); CHLORIDE LEVEL 102 MMOL/L (98-107); CREATININE FOR GFR 0.97 MG/DL (0.70-1.30); GLOMERULAR FILTRATION RATE > 60.0 (>49); GLUCOSE, FASTING 118 MG/DL (74-106); MAGNESIUM LEVEL 1.2 MG/DL (1.8-2.4); POTASSIUM SERUM 3.5 MMOL/L (3.5-5.1); SODIUM LEVEL 137 MMOL/L (136-145); TOTAL PROTEIN 6.3 G/DL (5.7-8.2)
[2024-09-21 03:39] LABS: FERRITIN 991.4 NG/ML (10.5-307.3)
[2024-09-21 03:40] LABS: ALBUMIN 3.4 G/DL (3.2-5.2); BILIRUBIN,DIRECT 0.3 MG/DL (<0.4); BILIRUBIN,TOTAL 0.7 MG/DL (0.3-1.2); TOTAL PROTEIN 6.1 G/DL (5.7-8.2)
[2024-09-21 03:52] LABS: CPK CREATINE PHOSPHOKINASE 2438 U/L (46-171)
[2024-09-21] MEDS: INSULIN LISPRO (NovoLOG) PER UNIT SC SCH ×2 (08:33→21:00)
[2024-09-21] MEDS: ENOXAPARIN 40MG/0.4ML SYRINGE (J1650 PER 10MG) SC SCH (08:33)
[2024-09-21] MEDS: FOLIC ACID 1MG TAB PO SCH (08:33)
[2024-09-21] MEDS: MULTIVITAMINS/MINERALS THERAP 1 TAB PO SCH (08:33)
[2024-09-21] MEDS: DOCUSATE SODIUM 100MG CAPSULE PO SCH (08:34)
[2024-09-21] MEDS: DAPAGLIFLOZIN PROPANEDIOL 10MG TABLET (FARXIGA) PO SCH (12:41)
[2024-09-21] MEDS: ASPIRIN 325 MG TAB PO SCH (12:41)
[2024-09-21] MEDS: OMEPRAZOLE 20MG CAP PO SCH (12:42)
[2024-09-21] MEDS: METOPROLOL TART 50 MG TAB PO SCH (12:42)
[2024-09-21] MEDS: VENLAFAXINE **XR** 75MG CAPSULE PO SCH (12:42)
[2024-09-21] MEDS ORDERED: BUMETANIDE 1 MG TAB PO SCH (17:00)
[2024-09-21] MEDS: MAGNESIUM OXIDE 400MG TAB (MAG-OX) PO SCH (17:10)
[2024-09-21] MEDS: ROSUVASTATIN 10 MG TAB (CRESTOR) PO SCH (20:48)
[2024-09-21] MEDS: CEFDINIR 300 MG CAP (OMNICEF) PO SCH (20:48)
[2024-09-21] MEDS: POTASSIUM CHLORIDE 10MEQ SR TABLET PO SCH (20:50)
[2024-09-22] VITALS (26 sets, daily range): BP systolic 108–135; BP diastolic 59–79; TEMP 97.4–99.3; O2SAT 91–96
[2024-09-22] MEDS: OXAZEPAM 15MG CAP PO SCH
[2024-09-22] MEDS: NORCO, ANEXSIA 5/325MG TABLET (HYDROcodone/ACETAMINOPHEN) PO PRN (03:57)
[2024-09-22] MEDS: REMDESIVIR 100 MG in NS 100 ML IV SCH (08:00)
[2024-09-22 08:10] LABS: BLOOD UREA NITROGEN 18 MG/DL (9-23); CALCIUM LEVEL 8.3 MG/DL (8.3-10.6); CARBON DIOXIDE LEVEL 24 MMOL/L (20-31); CHLORIDE LEVEL 107 MMOL/L (98-107); CREATININE FOR GFR 0.92 MG/DL (0.70-1.30); GLOMERULAR FILTRATION RATE > 60.0 (>49); GLUCOSE, FASTING 86 MG/DL (74-106); MAGNESIUM LEVEL 1.8 MG/DL (1.8-2.4); POTASSIUM SERUM 3.9 MMOL/L (3.5-5.1); SODIUM LEVEL 141 MMOL/L (136-145)
[2024-09-22] MEDS: BUMETANIDE 1 MG TAB PO SCH (17:15)
[2024-09-22] MEDS: methocarbamoL 500 MG TAB PO PRN (23:18)
[2024-09-23] VITALS (30 sets, daily range): BP systolic 115–140; BP diastolic 65–78; TEMP 97.1–97.4; O2SAT 84–97
[2024-09-24] VITALS (15 sets, daily range): BP systolic 102–140; BP diastolic 57–75; TEMP 97.4–101.1; O2SAT 90–95
[2024-09-24] MEDS: OXAZEPAM 10MG CAP PO SCH (12:26)
[2024-09-25 03:14] VITALS: BP 112/70; TEMP 99; O2SAT 94
[2024-09-25 06:21] LABS: HEMATOCRIT 37.9 % (42.0-52.0); HEMOGLOBIN 13.3 g/dl (13.5-17.5); MEAN CORPUSCULAR HEMOGLOBIN 32.3 pg (27.0-33.0); MEAN CORPUSCULAR HGB CONC 35.1 g/dl (32.0-36.5); PLATELET COUNT, AUTOMATED 326 10^3/uL (150-450); RED BLOOD COUNT 4.12 10^6/uL (4.30-6.10); WHITE BLOOD COUNT 7.3 10^3/uL (4.0-10.0)
[2024-09-25 06:42] LABS: MAGNESIUM LEVEL 1.7 MG/DL (1.8-2.4)
[2024-09-25 07:51] VITALS: BP 137/76; TEMP 98.8; O2SAT 91
[2024-09-25] MEDS: MAG SULF 1GM/100ML (MAG RUN) 1 GM in IV 1 EA IV SCH (08:55)
[2024-09-25 10:24] LABS: ALBUMIN 2.5 G/DL (3.2-5.2); ALKALINE PHOSPHATASE 59 U/L (40-129); ALT/SGPT 45 U/L (7.0-40); AST/SGOT 51 U/L (<34); BILIRUBIN,TOTAL 0.6 MG/DL (0.3-1.2); BLOOD UREA NITROGEN 25 MG/DL (9-23); C REACTIVE PROTEIN QUANTITATIV 9.08 MG/DL (<1.0); CALCIUM LEVEL 8.7 MG/DL (8.3-10.6); CARBON DIOXIDE LEVEL 28 MMOL/L (20-31); CHLORIDE LEVEL 103 MMOL/L (98-107); CREATININE FOR GFR 0.92 MG/DL (0.70-1.30); GLOMERULAR FILTRATION RATE > 60.0 (>49); GLUCOSE, FASTING 124 MG/DL (74-106); POTASSIUM SERUM 3.8 MMOL/L (3.5-5.1); SODIUM LEVEL 141 MMOL/L (136-145); TOTAL PROTEIN 5.9 G/DL (5.7-8.2)
[2024-09-25 15:05] LABS: ERYTHROCYTE SEDIMENTATION RATE 69 mm/hr (0-20)
[2024-09-25 16:00] VITALS: BP 123/71; TEMP 98.4; O2SAT 92
[2024-09-25 19:38] VITALS: BP 134/75; TEMP 97.9; O2SAT 97
[2024-09-26] MEDS: NORCO, ANEXSIA 5/325MG TABLET (HYDROcodone/ACETAMINOPHEN) PO PRN (01:35)
[2024-09-26 04:52] VITALS: BP 127/70; TEMP 97.7; O2SAT 94
[2024-09-26 07:55] VITALS: BP 134/80; TEMP 97.2; O2SAT 95
[2024-09-26 08:07] LABS: HEMATOCRIT 38.9 % (42.0-52.0); HEMOGLOBIN 13.8 g/dl (13.5-17.5); MEAN CORPUSCULAR HEMOGLOBIN 32.5 pg (27.0-33.0); MEAN CORPUSCULAR HGB CONC 35.5 g/dl (32.0-36.5); MEAN CORPUSCULAR VOLUME 91.5 fl (80.0-96.0); PLATELET COUNT, AUTOMATED 397 10^3/uL (150-450); RED BLOOD COUNT 4.25 10^6/uL (4.30-6.10); WHITE BLOOD COUNT 8.4 10^3/uL (4.0-10.0)
[2024-09-26 08:57] LABS: ALBUMIN 2.9 G/DL (3.2-5.2); ALKALINE PHOSPHATASE 63 U/L (40-129); ALT/SGPT 53 U/L (7.0-40); AST/SGOT 50 U/L (<34); BILIRUBIN,TOTAL 0.7 MG/DL (0.3-1.2); BLOOD UREA NITROGEN 29 MG/DL (9-23); CALCIUM LEVEL 8.9 MG/DL (8.3-10.6); CARBON DIOXIDE LEVEL 28 MMOL/L (20-31); CHLORIDE LEVEL 101 MMOL/L (98-107); CREATININE FOR GFR 1.03 MG/DL (0.70-1.30); GLOMERULAR FILTRATION RATE > 60.0 (>49); GLUCOSE, FASTING 130 MG/DL (74-106); MAGNESIUM LEVEL 1.9 MG/DL (1.8-2.4); POTASSIUM SERUM 3.9 MMOL/L (3.5-5.1); SODIUM LEVEL 138 MMOL/L (136-145); TOTAL PROTEIN 6.6 G/DL (5.7-8.2)
[2024-09-26] MEDS: SENOKOT S TAB PO SCH (11:33)
[2024-09-26] MEDS: MIRALAX *UNIT DOSE* 17GM PACKET PO SCH (11:33)
[2024-09-26] MEDS: RIVAROXABAN 15MG TAB (XARELTO) PO ONE ×2 (13:13→22:07)
[2024-09-26 16:14] VITALS: BP 127/74; TEMP 97.3; O2SAT 95
[2024-09-26] MEDS ORDERED: RIVAROXABAN 15MG TAB (XARELTO) PO SCH (18:00)
[2024-09-26 19:43] VITALS: BP 128/66; TEMP 97.4; O2SAT 96
[2024-09-27 07:38] VITALS: BP 130/67; TEMP 96.6; O2SAT 95
[2024-09-27] MEDS: RIVAROXABAN 15MG TAB (XARELTO) PO SCH (08:09)
[2024-09-27 12:05] VITALS: BP 120/71; TEMP 97.3
[2024-09-27 20:27] VITALS: BP 136/79; TEMP 98.1; O2SAT 95
[2024-09-28 04:00] VITALS: BP 135/78; TEMP 97.7; O2SAT 96
[2024-09-28 12:00] VITALS: BP 143/83; TEMP 97.3
[2024-09-28 20:59] VITALS: BP 125/81; TEMP 97.9; O2SAT 98
[2024-09-29 04:00] VITALS: BP 109/79; TEMP 97.9; O2SAT 98
[2024-09-29] MEDS ORDERED: ALPHA LIPOIC ACID PO SCH (09:00)
[2024-09-29] MEDS: VASCEPA PO SCH (10:30)
[2024-09-29 12:00] VITALS: BP 110/57; TEMP 97.3; O2SAT 95
[2024-09-29 20:00] VITALS: BP 99/58; TEMP 97.5; O2SAT 96
[2024-09-30 04:00] VITALS: BP 127/95; TEMP 97.2; O2SAT 97
[2024-09-30 12:00] VITALS: BP 128/66; TEMP 97.5; O2SAT 98
[2024-09-30 20:00] VITALS: BP 119/71; TEMP 97.7; O2SAT 98
[2024-10-01 04:00] VITALS: BP 112/70; TEMP 97.9; O2SAT 97
[2024-10-01 08:11] VITALS: BP 115/56
[2024-10-01] MEDS ORDERED: XARE15TA PO (14:41)
[2024-10-01] MEDS ORDERED: METH-1164 PO (14:41)
[2024-10-01] MEDS ORDERED: OXYC10TA12 PO (14:41)
[2024-10-01] MEDS ORDERED: ACET32TAB PO (14:41)
[2024-10-01] MEDS ORDERED: COLA100C5 PO (14:41)
[2024-10-01] MEDS ORDERED: HYDR-3715 PO (16:14)
== END 2024-10-01 16:45 | disposition home health service (06) | DRG 557 ==
LOC: M ED 18:24 → EDBD 18:24 → M ED INP 23:42 → M PCU 09-21 01:00 → M MS5PR 09-27 12:05
PROVIDERS: ADMIT Family Medicine; ATTEND Student in an Organized Health Care Education/Training Program
PROC: 0RSKXZZ Reposition Left Shoulder Joint, External Approach (ICD-10-PCS; principal; 2024-09-20)
DX: M62.82 Rhabdomyolysis (principal); U07.1 COVID-19; Q60.0 Renal agenesis, unilateral; I13.0 Hypertensive heart and chronic kidney disease with heart failure and stage 1 through stage 4 chronic kidney disease, or unspecified chronic kidney disease; I82.611 Acute embolism and thrombosis of superficial veins of right upper extremity; N18.30 Chronic kidney disease, stage 3 unspecified; I25.10 Atherosclerotic heart disease of native coronary artery without angina pectoris; F03.90 Unspecified dementia, unspecified severity, without behavioral disturbance, psychotic disturbance, mood disturbance, and anxiety; I50.9 Heart failure, unspecified; K21.9 Gastro-esophageal reflux disease without esophagitis; F10.20 Alcohol dependence, uncomplicated; E78.5 Hyperlipidemia, unspecified; J44.9 Chronic obstructive pulmonary disease, unspecified; E83.42 Hypomagnesemia; G54.0 Brachial plexus disorders; F41.9 Anxiety disorder, unspecified; F32.A Depression, unspecified; Z95.2 Presence of prosthetic heart valve; Z79.4 Long term (current) use of insulin; I25.2 Old myocardial infarction; M81.0 Age-related osteoporosis without current pathological fracture; E11.22 Type 2 diabetes mellitus with diabetic chronic kidney disease; M50.90 Cervical disc disorder, unspecified, unspecified cervical region; Z89.022 Acquired absence of left finger(s); S43.012A Anterior subluxation of left humerus, initial encounter; S43.032A Inferior subluxation of left humerus, initial encounter; W18.30XA Fall on same level, unspecified, initial encounter; Y92.009 Unspecified place in unspecified non-institutional (private) residence as the place of occurrence of the external cause; Z88.8 Allergy status to other drugs, medicaments and biological substances; Z91.040 Latex allergy status; Z91.048 Other nonmedicinal substance allergy status

== ENCOUNTER → 2024-10-16 | Outpatient (CLI) | payer MEDICARE, MEDICAID ==
[~2024-10-16] MED LIST changes: +ACET32TAB PO; +BASA100I SC; +CEFD1CAP9 PO; +EFFE75CA2 PO; +HYDR-3715 PO; +METH-1164 PO; +OXYC10TA12 PO; +PREDOPD OU; +XARE15TA PO
== END ==
LOC: M SOG 12:07
PROVIDERS: ATTEND Orthopaedic Surgery
DX: S43.004D Unspecified dislocation of right shoulder joint, subsequent encounter (principal); M25.512 Pain in left shoulder; M19.011 Primary osteoarthritis, right shoulder; M19.012 Primary osteoarthritis, left shoulder

== ENCOUNTER → 2024-12-11 | Outpatient (CLI) | payer MEDICARE, MEDICAID ==
[2024-12-11 12:45] LABS: BASO # 0.2 10^3/uL (0.0-0.2); BASO % 2.2 % (0.0-1.0); EOS # 0.3 10^3/uL (0.0-0.5); EOS % 3.7 % (0.0-3.0); HEMATOCRIT 36.4 % (42.0-52.0); HEMOGLOBIN 11.9 g/dl (13.5-17.5); LYMPH # 2.6 10^3/uL (1.5-5.0); LYMPH % 35.8 % (24.0-44.0); MEAN CORPUSCULAR HEMOGLOBIN 31.2 pg (27.0-33.0); MEAN CORPUSCULAR HGB CONC 32.7 g/dl (32.0-36.5); MEAN CORPUSCULAR VOLUME 95.5 fl (80.0-96.0); MONO # 0.6 10^3/uL (0.0-0.8); MONO % 8.3 % (2.0-8.0); NEUTROPHILS # 3.6 10^3/uL (1.5-8.5); NEUTROPHILS % 49.9 % (36.0-66.0); PLATELET COUNT, AUTOMATED 387 10^3/uL (150-450); RED BLOOD COUNT 3.81 10^6/uL (4.30-6.10); WHITE BLOOD COUNT 7.2 10^3/uL (4.0-10.0)
[2024-12-11 12:55] LABS: HEMOGLOBIN A1c 5.2 % (4.0-6.0)
[2024-12-11 13:13] LABS: ALBUMIN 3.7 G/DL (3.2-5.2); BILIRUBIN,TOTAL 0.4 MG/DL (0.3-1.2); CALCIUM LEVEL 9.7 MG/DL (8.3-10.6); CHOLESTEROL RISK RATIO 3.35 (<5); CREATININE FOR GFR 1.03 MG/DL (0.70-1.30); GLOMERULAR FILTRATION RATE 78.6 (>49); HDL CHOLESTEROL 38.5 MG/DL (>40); LDL CHOLESTEROL 64.1 MG/DL (<100); NON-HDL-C 90.5 MG/DL; POTASSIUM SERUM 3.9 MMOL/L (3.5-5.1)
[2024-12-11 13:15] LABS: FREE T4 1.2 NG/DL (0.89-1.76)
[2024-12-11 13:17] LABS: THYROID STIMULATING HORMONE 1.725 uIU/ML (0.55-4.78)
== END ==
LOC: M WUC 08:02
DX: E78.5 Hyperlipidemia, unspecified (principal); E03.9 Hypothyroidism, unspecified; E83.42 Hypomagnesemia; E11.21 Type 2 diabetes mellitus with diabetic nephropathy; K21.9 Gastro-esophageal reflux disease without esophagitis; I10 Essential (primary) hypertension; F10.10 Alcohol abuse, uncomplicated; F20.3 Undifferentiated schizophrenia

== ENCOUNTER → 2025-01-07 | Outpatient (CLI) | payer MEDICARE | LOC: M RAD 08:55 | PROVIDERS: ATTEND Internal Medicine Pulmonary Disease | DX: R91.8 Other nonspecific abnormal finding of lung field (principal); I70.0 Atherosclerosis of aorta; I25.10 Atherosclerotic heart disease of native coronary artery without angina pectoris ==

== ENCOUNTER 2025-03-12 09:56 | Inpatient (IN) | payer MEDICARE ==
[~2025-03-12] VITALS: Ht 165.1 cm; Wt 69.7 kg
[~2025-03-12 09:56] MED LIST changes: -ALPH600C PO; +ALPH600C2 PO
[2025-03-12 10:37] LABS: BASO # 0.1 10^3/uL (0.0-0.2); BASO % 1.5 % (0.0-1.0); EOS # 0.2 10^3/uL (0.0-0.5); EOS % 3.2 % (0.0-3.0); LYMPH # 2.4 10^3/uL (1.5-5.0); LYMPH % 32.5 % (24.0-44.0); MONO # 0.7 10^3/uL (0.0-0.8); MONO % 9.6 % (2.0-8.0); NEUTROPHILS # 3.8 10^3/uL (1.5-8.5); NEUTROPHILS % 52.8 % (36.0-66.0); PLATELET COUNT, AUTOMATED 243 10^3/uL (150-450)
[2025-03-12 10:47] LABS: INR 0.99
[2025-03-12 11:15] LABS: CK-MB VALUE MASS 3.9 NG/ML (<3.6)
[2025-03-12 11:16] LABS: ALT/SGPT 57 U/L (7.0-40); AST/SGOT 80 U/L (<34); CPK CREATINE PHOSPHOKINASE 156 U/L (46-171); MB/CK RELATIVE INDEX 2.50 (< OR =4)
[2025-03-12 13:43] LABS: KETONE, URINE AUTO RFX NEGATIVE (NEGATIVE); LEUKOCYTE ESTERASE UR AUTO RFX NEGATIVE (NEGATIVE); NITRITE, URINE AUTO RFX NEGATIVE (NEGATIVE); RBC, URINE AUTO RFX 0 /HPF (0-3); SQUAM EPITHELIAL CELL UR AURFX 0 /HPF (0-6); WBC, URINE AUTO RFX 0 /HPF (0-3)
[2025-03-12 14:10] LABS: CALCIUM LEVEL 9.3 MG/DL (8.3-10.6); CARBON DIOXIDE LEVEL 28 MMOL/L (20-31); CHLORIDE LEVEL 101 MMOL/L (98-107); CREATININE FOR GFR 0.85 MG/DL (0.70-1.30); GLOMERULAR FILTRATION RATE > 90.0 (>49); MAGNESIUM LEVEL 1.2 MG/DL (1.8-2.4); POTASSIUM SERUM 3.2 MMOL/L (3.5-5.1); SODIUM LEVEL 143 MMOL/L (136-145)
[2025-03-12] MEDS: NS (Normal Saline) 0.9% 1,000 ML IV ONE (14:21)
[2025-03-12] MEDS: ACETAMINOPHEN *IV* 1,000 MG in IV 1 EA IV ONE (14:54)
[2025-03-12] MEDS: MAG SULF 1GM/100ML (MAG RUN) 1 GM in IV 1 EA IV ONE (15:17)
[2025-03-12] MEDS ORDERED: GLUCOSE 4 GM CHEW PO PRN (16:10)
[2025-03-12] MEDS ORDERED: GLUCAGON INJ 1 MG VIAL SC PRN (16:10)
[2025-03-12] MEDS ORDERED: DEXTROSE 50% 50 ML SYRINGE IV PRN (16:10)
[2025-03-12] MEDS ORDERED: ASPI1TAB22 PO (16:15)
[2025-03-12] MEDS ORDERED: PRESCAP PO (16:15)
[2025-03-12] MEDS ORDERED: HOME MED LIST COMPLETE! XX SCH (16:20)
[2025-03-12] MEDS: MAG SULF 1GM/100ML (MAG RUN) 1 GM in IV 1 EA IV SCH (17:57)
[2025-03-12] MEDS: POTASSIUM CHLORIDE 10MEQ SR TABLET PO ONE (17:57)
[2025-03-12] MEDS: INSULIN LISPRO (NovoLOG) PER UNIT SC SCH ×2 (18:41→20:15)
[2025-03-12 18:53] LABS: VITAMIN B12 LEVEL 967 PG/ML (211-911)
[2025-03-12] MEDS: ROSUVASTATIN 10 MG TAB PO SCH (20:26)
[2025-03-12] MEDS: POTASSIUM CHLORIDE 10MEQ SR TABLET PO SCH (20:26)
[2025-03-12] MEDS: METOPROLOL TART 25 MG TABLET PO SCH (20:26)
[2025-03-12] MEDS: THIAMINE 100 MG TAB PO SCH (20:26)
[2025-03-12] MEDS: ACETAMINOPHEN 325 MG TAB PO PRN (20:28)
[2025-03-13 00:29] VITALS: BP 107/59; TEMP 97.3; O2SAT 94
[2025-03-13 04:12] VITALS: BP 131/69; TEMP 97.7; O2SAT 94
[2025-03-13 05:30] LABS: PLATELET COUNT, AUTOMATED 227 10^3/uL (150-450)
[2025-03-13 05:47] LABS: CALCIUM LEVEL 8.6 MG/DL (8.3-10.6); CARBON DIOXIDE LEVEL 29 MMOL/L (20-31); CHLORIDE LEVEL 105 MMOL/L (98-107); CREATININE FOR GFR 0.78 MG/DL (0.70-1.30); GLOMERULAR FILTRATION RATE > 90.0 (>49); MAGNESIUM LEVEL 2.0 MG/DL (1.8-2.4); POTASSIUM SERUM 3.6 MMOL/L (3.5-5.1); SODIUM LEVEL 144 MMOL/L (136-145)
[2025-03-13] MEDS ORDERED: ENTER DRUG NAME HERE (PATIENT'S OWN MED) PO SCH (09:00)
[2025-03-13 09:38] VITALS: BP 129/67
[2025-03-13] MEDS: FOLIC ACID 1 MG TAB PO SCH (09:43)
[2025-03-13] MEDS: DAPAGLIFLOZIN PROPANEDIOL 10 MG TABLET PO SCH (09:43)
[2025-03-13] MEDS: DONEPEZIL 5 MG TAB PO SCH (09:43)
[2025-03-13] MEDS: ASPIRIN 81 MG CHEWABLE TABLET PO SCH (09:43)
[2025-03-13] MEDS: VENLAFAXINE **XR** 75MG CAPSULE PO SCH (09:43)
[2025-03-13] MEDS: ENOXAPARIN 40 MG/0.4 ML SYRINGE (J1650 PER 10MG) SC SCH (09:44)
[2025-03-13] MEDS: OMEPRAZOLE 20MG CAP PO SCH (09:44)
[2025-03-13] MEDS: CETIRIZINE 10 MG TAB PO SCH (09:44)
[2025-03-13] MEDS: MULTIVITAMINS/MINERALS THERAP 1 TAB PO SCH (09:44)
[2025-03-13] MEDS: MEMANTINE 5 MG TABLET PO SCH (09:44)
[2025-03-13 12:00] VITALS: BP 127/68; TEMP 97.7; O2SAT 97
[2025-03-13 17:22] VITALS: BP 130/78
[2025-03-13 21:09] VITALS: BP 131/77; TEMP 97.7; O2SAT 96
[2025-03-14 04:53] VITALS: BP 131/75; TEMP 97.7; O2SAT 96
[2025-03-14 06:26] LABS: BASO # 0.1 10^3/uL (0.0-0.2); BASO % 1.2 % (0.0-1.0); EOS # 0.2 10^3/uL (0.0-0.5); EOS % 2.5 % (0.0-3.0); LYMPH # 2.3 10^3/uL (1.5-5.0); LYMPH % 32.1 % (24.0-44.0); MONO # 0.7 10^3/uL (0.0-0.8); MONO % 9.1 % (2.0-8.0); NEUTROPHILS # 4.0 10^3/uL (1.5-8.5); NEUTROPHILS % 54.7 % (36.0-66.0); PLATELET COUNT, AUTOMATED 229 10^3/uL (150-450)
[2025-03-14 06:45] LABS: CALCIUM LEVEL 8.9 MG/DL (8.3-10.6); CARBON DIOXIDE LEVEL 26 MMOL/L (20-31); CHLORIDE LEVEL 106 MMOL/L (98-107); CREATININE FOR GFR 0.75 MG/DL (0.70-1.30); GLOMERULAR FILTRATION RATE > 90.0 (>49); POTASSIUM SERUM 3.8 MMOL/L (3.5-5.1); SODIUM LEVEL 143 MMOL/L (136-145)
[2025-03-14 09:00] VITALS: BP_SYST 125; BP_SYST 126; BP_SYST 131; BP_DIAS 76; BP_DIAS 78; BP_DIAS 79
[2025-03-14 09:07] VITALS: BP 125/79
[2025-03-14 12:15] VITALS: BP 127/84; TEMP 97.5; O2SAT 98
[2025-03-14] MEDS ORDERED: DICLOFENAC EPOLAMINE 1.3% PATCH TOP SCH (12:25)
[2025-03-14 20:00] VITALS: BP 124/64
[2025-03-14 20:04] VITALS: BP 124/64; TEMP 97.7; O2SAT 97
[2025-03-15] VITALS (8 sets, daily range): BP systolic 104–152; BP diastolic 63–90; TEMP 97.2–103.3; O2SAT 96–100
[2025-03-15 09:45] LABS: ALT/SGPT 31 U/L (7.0-40); AST/SGOT 28 U/L (<34); CALCIUM LEVEL 8.9 MG/DL (8.3-10.6); CARBON DIOXIDE LEVEL 25 MMOL/L (20-31); CHLORIDE LEVEL 107 MMOL/L (98-107); CREATININE FOR GFR 0.65 MG/DL (0.70-1.30); GLOMERULAR FILTRATION RATE > 90.0 (>49); MAGNESIUM LEVEL 1.5 MG/DL (1.8-2.4); POTASSIUM SERUM 3.7 MMOL/L (3.5-5.1); SODIUM LEVEL 142 MMOL/L (136-145)
[2025-03-15 10:46] LABS: BASO # 0.1 10^3/uL (0.0-0.2); BASO % 1.0 % (0.0-1.0); EOS # 0.1 10^3/uL (0.0-0.5); EOS % 1.2 % (0.0-3.0); LYMPH # 1.7 10^3/uL (1.5-5.0); LYMPH % 17.6 % (24.0-44.0); MONO # 0.9 10^3/uL (0.0-0.8); MONO % 8.7 % (2.0-8.0); NEUTROPHILS # 7.0 10^3/uL (1.5-8.5); NEUTROPHILS % 71.1 % (36.0-66.0); PLATELET COUNT, AUTOMATED 223 10^3/uL (150-450)
[2025-03-15] MEDS: ANALGESIC BALM CRM 3 OZ TOP PRN (11:40)
[2025-03-15] MEDS: MAG SULF 1GM/100ML (MAG RUN) 1 GM in IV 1 EA IV SCH (12:55)
[2025-03-15] MEDS ORDERED: PIPERACILLIN/TAZOBACTAM SOD 4.5 GM in DEXTROSE 5% (D5W) ADV/MINI-BAG 50 ML IV SCH (21:15)
[2025-03-15] MEDS ORDERED: ISOVUE-370 76% 100 ML VIAL As Ordered ONE (21:32)
[2025-03-15] MEDS: LR 1,000 ML IV SCH (21:58)
[2025-03-15 22:21] LABS: ABG BASE EXCESS -0.2 (-2.0-2.0); ABG HCO3 22.4 MMOL/L (22.0-26.0); ABG O2 SATURATION 95.6 % (95.0-99.0); ABG PARTIAL PRESSURE CO2 30.4 mmHg (35.0-45.0); ABG PARTIAL PRESSURE O2 82.9 mmHg (75.0-100.0); ABG STANDARD HCO3 24.3 MMOL/L. (22.0-26.0); ABG TOTAL CO2 23.3 MMOL/L (23.0-31.0); ABG pH (ARTERIAL) 7.485 UNITS (7.350-7.450)
[2025-03-15] MEDS: PIPERACILLIN/TAZOBACTAM SOD 4.5 GM in DEXTROSE 5% (D5W) ADV/MINI-BAG 50 ML IV SCH (22:38)
[2025-03-16 01:11] LABS: PLATELET COUNT, AUTOMATED 220 10^3/uL (150-450)
[2025-03-16 01:43] LABS: ALT/SGPT 27 U/L (7.0-40); AST/SGOT 30 U/L (<34); CALCIUM LEVEL 8.2 MG/DL (8.3-10.6); CARBON DIOXIDE LEVEL 23 MMOL/L (20-31); CHLORIDE LEVEL 103 MMOL/L (98-107); CREATININE FOR GFR 0.78 MG/DL (0.70-1.30); GLOMERULAR FILTRATION RATE > 90.0 (>49); POTASSIUM SERUM 3.7 MMOL/L (3.5-5.1); SODIUM LEVEL 140 MMOL/L (136-145)
[2025-03-16 05:20] VITALS: BP 113/77; TEMP 98.1; O2SAT 97
[2025-03-16 06:36] LABS: BASO # 0.1 10^3/uL (0.0-0.2); BASO % 1.4 % (0.0-1.0); EOS # 0.1 10^3/uL (0.0-0.5); EOS % 1.6 % (0.0-3.0); LYMPH # 2.0 10^3/uL (1.5-5.0); LYMPH % 24.4 % (24.0-44.0); MONO # 0.9 10^3/uL (0.0-0.8); MONO % 11.0 % (2.0-8.0); NEUTROPHILS # 4.9 10^3/uL (1.5-8.5); NEUTROPHILS % 61.2 % (36.0-66.0); PLATELET COUNT, AUTOMATED 219 10^3/uL (150-450)
[2025-03-16 07:05] LABS: CALCIUM LEVEL 8.5 MG/DL (8.3-10.6); CARBON DIOXIDE LEVEL 24 MMOL/L (20-31); CHLORIDE LEVEL 104 MMOL/L (98-107); CREATININE FOR GFR 0.74 MG/DL (0.70-1.30); GLOMERULAR FILTRATION RATE > 90.0 (>49); POTASSIUM SERUM 3.6 MMOL/L (3.5-5.1); SODIUM LEVEL 141 MMOL/L (136-145)
[2025-03-16 10:11] LABS: KETONE, URINE AUTO RFX NEGATIVE (NEGATIVE); LEUKOCYTE ESTERASE UR AUTO RFX NEGATIVE (NEGATIVE); NITRITE, URINE AUTO RFX NEGATIVE (NEGATIVE); RBC, URINE AUTO RFX 16 /HPF (0-3); SQUAM EPITHELIAL CELL UR AURFX 0 /HPF (0-6); WBC, URINE AUTO RFX 1 /HPF (0-3)
[2025-03-16] MEDS: ACETAMINOPHEN 325 MG TAB PO PRN (11:20)
[2025-03-16 13:00] VITALS: BP 126/70; TEMP 97.6; O2SAT 99
[2025-03-16 13:17] VITALS: BP 126/70
[2025-03-16 19:03] VITALS: TEMP 99.4
[2025-03-16 20:00] VITALS: BP_SYST 124; BP_SYST 125; BP_DIAS 68; BP_DIAS 69; TEMP 97.5; O2SAT 96
[2025-03-17 04:21] VITALS: BP 124/67; TEMP 97.2; O2SAT 98
[2025-03-17 06:31] LABS: BASO # 0.1 10^3/uL (0.0-0.2); BASO % 1.7 % (0.0-1.0); EOS # 0.3 10^3/uL (0.0-0.5); EOS % 3.9 % (0.0-3.0); LYMPH # 1.8 10^3/uL (1.5-5.0); LYMPH % 27.3 % (24.0-44.0); MONO # 0.7 10^3/uL (0.0-0.8); MONO % 10.7 % (2.0-8.0); NEUTROPHILS # 3.7 10^3/uL (1.5-8.5); NEUTROPHILS % 56.1 % (36.0-66.0); PLATELET COUNT, AUTOMATED 226 10^3/uL (150-450)
[2025-03-17 07:07] LABS: ALT/SGPT 28 U/L (7.0-40); AST/SGOT 33 U/L (<34); CALCIUM LEVEL 8.4 MG/DL (8.3-10.6); CARBON DIOXIDE LEVEL 23 MMOL/L (20-31); CHLORIDE LEVEL 105 MMOL/L (98-107); CREATININE FOR GFR 0.79 MG/DL (0.70-1.30); GLOMERULAR FILTRATION RATE > 90.0 (>49); MAGNESIUM LEVEL 1.5 MG/DL (1.8-2.4); POTASSIUM SERUM 3.7 MMOL/L (3.5-5.1); SODIUM LEVEL 140 MMOL/L (136-145)
[2025-03-17] MEDS: MAGNESIUM OXIDE 400 MG TAB PO SCH (09:42)
[2025-03-17] MEDS: MAG SULF 1GM/100ML (MAG RUN) 1 GM in IV 1 EA IV SCH (11:11)
[2025-03-17 12:00] VITALS: BP 109/63; TEMP 97.5; O2SAT 98
[2025-03-17 20:58] VITALS: BP 122/64; TEMP 97.7; O2SAT 100
[2025-03-18 03:56] VITALS: BP 125/64; TEMP 97.3; O2SAT 98
[2025-03-18 05:32] LABS: PLATELET COUNT, AUTOMATED 273 10^3/uL (150-450)
[2025-03-18 05:44] LABS: CALCIUM LEVEL 8.5 MG/DL (8.3-10.6); CARBON DIOXIDE LEVEL 25 MMOL/L (20-31); CHLORIDE LEVEL 106 MMOL/L (98-107); CREATININE FOR GFR 0.80 MG/DL (0.70-1.30); GLOMERULAR FILTRATION RATE > 90.0 (>49); POTASSIUM SERUM 3.8 MMOL/L (3.5-5.1); SODIUM LEVEL 142 MMOL/L (136-145)
[2025-03-18 07:44] LABS: MAGNESIUM LEVEL 1.9 MG/DL (1.8-2.4)
[2025-03-18 12:00] VITALS: BP 128/68; TEMP 97.5; O2SAT 96
[2025-03-18 20:08] VITALS: BP 124/72; TEMP 97.3; O2SAT 100
[2025-03-18] MEDS: DOXYCYCLINE HYCLATE 100 MG TABLET PO SCH (21:08)
[2025-03-18] MEDS: CEFDINIR 300 MG CAP PO SCH (21:10)
[2025-03-19 05:25] VITALS: BP 171/97; TEMP 97.5; O2SAT 99
[2025-03-19 07:05] LABS: PLATELET COUNT, AUTOMATED 335 10^3/uL (150-450)
[2025-03-19 07:26] LABS: CALCIUM LEVEL 8.7 MG/DL (8.3-10.6); CARBON DIOXIDE LEVEL 24 MMOL/L (20-31); CHLORIDE LEVEL 108 MMOL/L (98-107); CREATININE FOR GFR 0.72 MG/DL (0.70-1.30); GLOMERULAR FILTRATION RATE > 90.0 (>49); MAGNESIUM LEVEL 1.7 MG/DL (1.8-2.4); POTASSIUM SERUM 3.9 MMOL/L (3.5-5.1); SODIUM LEVEL 144 MMOL/L (136-145)
[2025-03-19] MEDS: VENLAFAXINE **XR** 75MG CAPSULE PO SCH (08:53)
[2025-03-19 08:55] VITALS: BP 113/64
[2025-03-19 12:39] VITALS: BP 121/67; TEMP 97.7; O2SAT 98
[2025-03-19] MEDS ORDERED: OXYC-517 PO (12:55)
[2025-03-19] MEDS ORDERED: BUME2TAB3 PO (12:55)
[2025-03-19] MEDS ORDERED: VENL150C43 PO (12:55)
[2025-03-19] MEDS ORDERED: METO1TAB87 PO (12:55)
== END 2025-03-19 15:21 | disposition home or self-care (01) | DRG 552 ==
LOC: M ED 09:56 → EDBD 09:56 → M ED INP 09:57 → M MSPAV 03-13 00:28 → OBSVTOIN 03-17 10:52
PROVIDERS: ADMIT Internal Medicine; ATTEND Internal Medicine Nephrology
DX: M50.01 Cervical disc disorder with myelopathy, high cervical region (principal); G95.89 Other specified diseases of spinal cord; Q60.2 Renal agenesis, unspecified; R45.851 Suicidal ideations; F03.90 Unspecified dementia, unspecified severity, without behavioral disturbance, psychotic disturbance, mood disturbance, and anxiety; F10.20 Alcohol dependence, uncomplicated; E11.22 Type 2 diabetes mellitus with diabetic chronic kidney disease; N18.9 Chronic kidney disease, unspecified; I25.10 Atherosclerotic heart disease of native coronary artery without angina pectoris; K21.9 Gastro-esophageal reflux disease without esophagitis; M75.102 Unspecified rotator cuff tear or rupture of left shoulder, not specified as traumatic; E87.6 Hypokalemia; M75.101 Unspecified rotator cuff tear or rupture of right shoulder, not specified as traumatic; R74.01 Elevation of levels of liver transaminase levels; R50.9 Fever, unspecified; M48.02 Spinal stenosis, cervical region; E83.42 Hypomagnesemia; I95.1 Orthostatic hypotension; F32.A Depression, unspecified; Z88.8 Allergy status to other drugs, medicaments and biological substances; Z91.040 Latex allergy status; Z89.022 Acquired absence of left finger(s); F17.200 Nicotine dependence, unspecified, uncomplicated; Z79.899 Other long term (current) drug therapy; Z79.82 Long term (current) use of aspirin; R29.6 Repeated falls; Z79.4 Long term (current) use of insulin; M50.023 Cervical disc disorder at C6-C7 level with myelopathy

== ENCOUNTER 2025-04-30 14:34 | Observation (INO) | payer OTHER, MEDICARE ==
[~2025-04-30] VITALS: Ht 165.1 cm; Wt 67.4 kg
[~2025-04-30 14:34] MED LIST changes: +ASPI1TAB22 PO; +METO1TAB87 PO; +OXYC-517 PO; +PRESCAP PO; +VENL150C43 PO
[2025-04-30 15:43] LABS: BASO # 0.1 10^3/uL (0.0-0.2); BASO % 1.5 % (0.0-1.0); EOS # 0.1 10^3/uL (0.0-0.5); EOS % 1.7 % (0.0-3.0); LYMPH # 2.1 10^3/uL (1.5-5.0); LYMPH % 25.3 % (24.0-44.0); MONO # 0.7 10^3/uL (0.0-0.8); MONO % 8.7 % (2.0-8.0); NEUTROPHILS # 5.2 10^3/uL (1.5-8.5); NEUTROPHILS % 62.2 % (36.0-66.0); PLATELET COUNT, AUTOMATED 311 10^3/uL (150-450)
[2025-04-30] MEDS ORDERED: ISOVUE-370 76% 100 ML VIAL As Ordered ONE (15:46)
[2025-04-30 15:57] LABS: INR 1.05
[2025-04-30 16:08] LABS: ETHYL ALCOHOL (ETHANOL) 0.167 % (0.000-0.010)
[2025-04-30 16:14] LABS: CALCIUM LEVEL 7.4 MG/DL (8.3-10.6); CARBON DIOXIDE LEVEL 23 MMOL/L (20-31); CHLORIDE LEVEL 106 MMOL/L (98-107); CREATININE FOR GFR 0.73 MG/DL (0.70-1.30); GLOMERULAR FILTRATION RATE > 90.0 (>49); POTASSIUM SERUM 2.6 MMOL/L (3.5-5.1); SODIUM LEVEL 142 MMOL/L (136-145)
[2025-04-30] MEDS: KCL 10MEQ/100ML SWI (KRUN) 10 MEQ in IV 1 EA IV ONE (16:30)
[2025-04-30] MEDS: POTASSIUM CHLORIDE 10MEQ SR TABLET PO ONE (16:30)
[2025-04-30] MEDS: LIDOCAINE 1% MDV 20 ML VIAL SC ONE (18:15)
[2025-04-30] MEDS: DERMABOND TOPICAL SKIN ADHESIVE TOP ONE (18:15)
[2025-04-30] MEDS ORDERED: GLUCAGON INJ 1 MG VIAL SC PRN (20:20)
[2025-04-30] MEDS ORDERED: MOM 30 ML SUSPENSION UDC PO PRN (20:20)
[2025-04-30] MEDS ORDERED: DEXTROSE 50% 50 ML SYRINGE IV PRN (20:20)
[2025-04-30] MEDS ORDERED: GLUCOSE 4 GM CHEW PO PRN (20:20)
[2025-04-30] MEDS ORDERED: MAALOX 30 ML SUSP *UDC PO PRN (20:20)
[2025-04-30] MEDS: FLEET ENEMA PR ONE (20:30)
[2025-04-30] MEDS: DOCUSATE SODIUM 100 MG CAPSULE PO SCH (20:30)
[2025-04-30] MEDS ORDERED: VENL150C43 PO (20:30)
[2025-04-30] MEDS: BISACODYL 10 MG SUPP PR SCH (20:31)
[2025-04-30] MEDS ORDERED: ACET-840 PO (20:31)
[2025-04-30] MEDS ORDERED: HOME MED LIST COMPLETE! XX SCH (20:35)
[2025-04-30] MEDS: INSULIN LISPRO (NovoLOG) PER UNIT SC SCH (21:00)
[2025-04-30 21:23] LABS: KETONE, URINE AUTO RFX NEGATIVE (NEGATIVE); LEUKOCYTE ESTERASE UR AUTO RFX NEGATIVE (NEGATIVE); NITRITE, URINE AUTO RFX NEGATIVE (NEGATIVE); RBC, URINE AUTO RFX 0 /HPF (0-3); SQUAM EPITHELIAL CELL UR AURFX 0 /HPF (0-6); WBC, URINE AUTO RFX 1 /HPF (0-3)
[2025-04-30 21:45] LABS: ALT/SGPT 41.0 U/L (7.0-40); AST/SGOT 76.0 U/L (<34); MAGNESIUM LEVEL 1.5 MG/DL (1.8-2.4)
[2025-04-30 21:48] LABS: CALCIUM LEVEL 8.8 MG/DL (8.3-10.6); CARBON DIOXIDE LEVEL 31 MMOL/L (20-31); CHLORIDE LEVEL 103 MMOL/L (98-107); CREATININE FOR GFR 0.82 MG/DL (0.70-1.30); GLOMERULAR FILTRATION RATE > 90.0 (>49); POTASSIUM SERUM 3.6 MMOL/L (3.5-5.1); SODIUM LEVEL 143 MMOL/L (136-145)
[2025-04-30 21:54] LABS: AMPHETAMINES LEVEL URINE NEGATIVE (NEGATIVE); BARBITURATES URINE NEGATIVE (NEGATIVE); BENZODIAZEPINES URINE NEGATIVE (NEGATIVE); COCAINE METABOLITE URINE NEGATIVE (NEGATIVE); METHADONE URINE NEGATIVE (NEGATIVE)
[2025-04-30 21:55] LABS: CANNABINOIDS URINE NEGATIVE (NEGATIVE); OPIATES URINE NEGATIVE (NEGATIVE); PHENCYCLIDINE URINE NEGATIVE (NEGATIVE)
[2025-04-30] MEDS: MAGNESIUM OXIDE 400 MG TAB PO SCH (22:07)
[2025-04-30] MEDS: THIAMINE 100 MG TAB PO SCH (22:07)
[2025-04-30] MEDS: ASPIRIN 325 MG TAB PO SCH (22:07)
[2025-04-30] MEDS: METOPROLOL TART 25 MG TABLET PO SCH (22:08)
[2025-04-30] MEDS: ROSUVASTATIN 10 MG TAB PO SCH (22:08)
[2025-04-30] MEDS: ACETAMINOPHEN 500 MG TAB PO SCH (22:21)
[2025-04-30] MEDS: BUMETANIDE 1 MG TAB PO SCH (22:22)
[2025-04-30] MEDS: POTASSIUM CHLORIDE 10MEQ SR TABLET PO SCH (22:22)
[2025-04-30] MEDS: FENOFIBRATE 145 MG TABLET PO SCH (22:23)
[2025-04-30] MEDS: MEMANTINE 5 MG TABLET PO SCH (22:23)
[2025-05-01] MEDS: OXAZEPAM 15MG CAP PO SCH (00:17)
[2025-05-01 03:40] LABS: ALT/SGPT 38 U/L (7.0-40); AST/SGOT 66 U/L (<34); CALCIUM LEVEL 8.7 MG/DL (8.3-10.6); CARBON DIOXIDE LEVEL 32 MMOL/L (20-31); CHLORIDE LEVEL 103 MMOL/L (98-107); CREATININE FOR GFR 0.82 MG/DL (0.70-1.30); GLOMERULAR FILTRATION RATE > 90.0 (>49); MAGNESIUM LEVEL 1.6 MG/DL (1.8-2.4); POTASSIUM SERUM 3.8 MMOL/L (3.5-5.1); SODIUM LEVEL 144 MMOL/L (136-145)
[2025-05-01 04:04] LABS: PLATELET COUNT, AUTOMATED 290 10^3/uL (150-450)
[2025-05-01] MEDS: MAGNESIUM OXIDE 400 MG TAB PO ONE (05:36)
[2025-05-01] MEDS: INSULIN LISPRO (NovoLOG) PER UNIT SC SCH (07:30)
[2025-05-01] MEDS: MIRALAX *UNIT DOSE* 17 GM PACKET PO SCH (07:58)
[2025-05-01] MEDS: MAG SULF 1GM/100ML (MAG RUN) 1 GM in IV 1 EA IV SCH (07:59)
[2025-05-01] MEDS: MULTIVITAMINS/MINERALS THERAP 1 TAB PO SCH (08:00)
[2025-05-01] MEDS: VENLAFAXINE **XR** 75MG CAPSULE PO SCH (08:00)
[2025-05-01] MEDS: DAPAGLIFLOZIN PROPANEDIOL 10 MG TABLET PO SCH (08:00)
[2025-05-01] MEDS: FOLIC ACID 1 MG TAB PO SCH (08:01)
[2025-05-01] MEDS: CETIRIZINE 10 MG TAB PO SCH (08:01)
[2025-05-01] MEDS: OMEPRAZOLE 20MG CAP PO SCH (08:01)
[2025-05-01] MEDS: DONEPEZIL 5 MG TAB PO SCH (09:06)
[2025-05-01 10:06] LABS: CALCIUM LEVEL 8.8 MG/DL (8.3-10.6); CARBON DIOXIDE LEVEL 32 MMOL/L (20-31); CHLORIDE LEVEL 101 MMOL/L (98-107); CREATININE FOR GFR 0.83 MG/DL (0.70-1.30); GLOMERULAR FILTRATION RATE > 90.0 (>49); POTASSIUM SERUM 3.8 MMOL/L (3.5-5.1); SODIUM LEVEL 141 MMOL/L (136-145)
[2025-05-01 12:40] VITALS: BP 153/87
[2025-05-01 12:55] VITALS: BP 153/87; TEMP 97.5; O2SAT 96
[2025-05-01] MEDS: ACETAMINOPHEN 325 MG TAB PO PRN (13:11)
[2025-05-01 15:36] LABS: CALCIUM LEVEL 8.9 MG/DL (8.3-10.6); CARBON DIOXIDE LEVEL 33 MMOL/L (20-31); CHLORIDE LEVEL 100 MMOL/L (98-107); CREATININE FOR GFR 0.82 MG/DL (0.70-1.30); GLOMERULAR FILTRATION RATE > 90.0 (>49); POTASSIUM SERUM 3.6 MMOL/L (3.5-5.1); SODIUM LEVEL 141 MMOL/L (136-145)
[2025-05-01 16:40] VITALS: BP 151/88; TEMP 98.6; O2SAT 97
[2025-05-01 20:00] VITALS: BP 140/86; TEMP 98.6; O2SAT 99
[2025-05-01 20:01] VITALS: BP 140/86
[2025-05-01] MEDS: TAMSULOSIN 0.4 MG CAP PO SCH (20:05)
[2025-05-01 21:43] LABS: CALCIUM LEVEL 8.7 MG/DL (8.3-10.6); CARBON DIOXIDE LEVEL 33 MMOL/L (20-31); CHLORIDE LEVEL 98 MMOL/L (98-107); CREATININE FOR GFR 0.84 MG/DL (0.70-1.30); GLOMERULAR FILTRATION RATE > 90.0 (>49); POTASSIUM SERUM 3.9 MMOL/L (3.5-5.1); SODIUM LEVEL 138 MMOL/L (136-145)
[2025-05-02] VITALS (10 sets, daily range): BP systolic 99–133; BP diastolic 61–84; TEMP 97.3–98.6; O2SAT 93–100
[2025-05-02] MEDS: OXAZEPAM 15MG CAP PO SCH (01:04)
[2025-05-02 03:27] LABS: CALCIUM LEVEL 8.4 MG/DL (8.3-10.6); CARBON DIOXIDE LEVEL 32 MMOL/L (20-31); CHLORIDE LEVEL 99 MMOL/L (98-107); CREATININE FOR GFR 0.83 MG/DL (0.70-1.30); GLOMERULAR FILTRATION RATE > 90.0 (>49); POTASSIUM SERUM 3.9 MMOL/L (3.5-5.1); SODIUM LEVEL 139 MMOL/L (136-145)
[2025-05-02 08:10] LABS: MAGNESIUM LEVEL 1.9 MG/DL (1.8-2.4)
[2025-05-03] VITALS (7 sets, daily range): BP systolic 115–125; BP diastolic 70–95; TEMP 97.7–98.1; O2SAT 94–100
[2025-05-03 07:32] LABS: CALCIUM LEVEL 8.5 MG/DL (8.3-10.6); CARBON DIOXIDE LEVEL 29 MMOL/L (20-31); CHLORIDE LEVEL 100 MMOL/L (98-107); CREATININE FOR GFR 0.76 MG/DL (0.70-1.30); GLOMERULAR FILTRATION RATE > 90.0 (>49); MAGNESIUM LEVEL 1.7 MG/DL (1.8-2.4); POTASSIUM SERUM 3.2 MMOL/L (3.5-5.1); SODIUM LEVEL 139 MMOL/L (136-145)
[2025-05-03] MEDS: HEPARIN SOD 5000 UNITS/ML 1 ML VIAL/SYRINGE SQ SCH (08:21)
[2025-05-03] MEDS: MAG SULF 1GM/100ML (MAG RUN) 1 GM in IV 1 EA IV SCH (08:22)
[2025-05-03] MEDS: KCL 10MEQ/100ML SWI (KRUN) 10 MEQ in IV 1 EA IV SCH (12:20)
[2025-05-03] MEDS: PERCOCET 5MG/325MG TAB PO PRN (17:06)
[2025-05-04] VITALS (7 sets, daily range): BP systolic 102–117; BP diastolic 66–73; TEMP 97.3–98.1; O2SAT 95–100
[2025-05-04 07:39] LABS: CALCIUM LEVEL 9.0 MG/DL (8.3-10.6); CARBON DIOXIDE LEVEL 26 MMOL/L (20-31); CHLORIDE LEVEL 99 MMOL/L (98-107); CREATININE FOR GFR 0.79 MG/DL (0.70-1.30); GLOMERULAR FILTRATION RATE > 90.0 (>49); MAGNESIUM LEVEL 1.7 MG/DL (1.8-2.4); POTASSIUM SERUM 3.8 MMOL/L (3.5-5.1); SODIUM LEVEL 136 MMOL/L (136-145)
[2025-05-05 00:09] VITALS: BP 103/60; TEMP 97.5; O2SAT 100
[2025-05-05 04:06] VITALS: BP 111/64; TEMP 97.7; O2SAT 98
[2025-05-05 04:15] VITALS: BP 111/64
[2025-05-05 07:42] LABS: CALCIUM LEVEL 8.9 MG/DL (8.3-10.6); CARBON DIOXIDE LEVEL 28 MMOL/L (20-31); CHLORIDE LEVEL 104 MMOL/L (98-107); CREATININE FOR GFR 0.85 MG/DL (0.70-1.30); GLOMERULAR FILTRATION RATE > 90.0 (>49); MAGNESIUM LEVEL 1.8 MG/DL (1.8-2.4); POTASSIUM SERUM 3.6 MMOL/L (3.5-5.1); SODIUM LEVEL 143 MMOL/L (136-145)
[2025-05-05 08:00] VITALS: BP 121/76; TEMP 98.1; O2SAT 97
[2025-05-05 08:32] VITALS: BP 121/76
[2025-05-05] MEDS ORDERED: TAMS-18 PO (11:56)
== END 2025-05-05 16:03 | disposition home or self-care (01) ==
LOC: EDBD 14:34 → M ED 14:34 → M ED INP 14:35 → M MSPAV 05-01 12:21
PROVIDERS: ADMIT Student in an Organized Health Care Education/Training Program; ATTEND Student in an Organized Health Care Education/Training Program
DX: F10.929 Alcohol use, unspecified with intoxication, unspecified (principal); E87.6 Hypokalemia; V47.5XXA Car driver injured in collision with fixed or stationary object in traffic accident, initial encounter; S80.212A Abrasion, left knee, initial encounter; S60.812A Abrasion of left wrist, initial encounter; S50.812A Abrasion of left forearm, initial encounter; S01.419A Laceration without foreign body of unspecified cheek and temporomandibular area, initial encounter; F03.90 Unspecified dementia, unspecified severity, without behavioral disturbance, psychotic disturbance, mood disturbance, and anxiety; E11.9 Type 2 diabetes mellitus without complications; I10 Essential (primary) hypertension; I25.10 Atherosclerotic heart disease of native coronary artery without angina pectoris; I25.2 Old myocardial infarction; E78.5 Hyperlipidemia, unspecified; E83.42 Hypomagnesemia; J44.9 Chronic obstructive pulmonary disease, unspecified; G83.20 Monoplegia of upper limb affecting unspecified side; Q60.0 Renal agenesis, unilateral; K21.9 Gastro-esophageal reflux disease without esophagitis; F32.9 Major depressive disorder, single episode, unspecified; F41.9 Anxiety disorder, unspecified; N13.39 Other hydronephrosis; Z79.82 Long term (current) use of aspirin; Z79.4 Long term (current) use of insulin; Z79.84 Long term (current) use of oral hypoglycemic drugs; M81.0 Age-related osteoporosis without current pathological fracture; I50.9 Heart failure, unspecified; F32.A Depression, unspecified
CPT/HCPCS: 12002; 36415; 70450; 70486; 71260; 72125; 73060; 73090; 73564; 74177; 80047; 80048; 80053; 80076; 80307; 81001; 82077; 83735; 85025; 85027; 85610; 85730; 86850; 86900; 86901; 87486; 87581; 87633; 87798; 93005; 93041; 93306; 94760; 96360; 96361; 96372; 97162; 97530; 99285; J1815; J3475; Q9967

== ENCOUNTER → 2025-07-25 | Outpatient (CLI) | payer MEDICARE ==
[~2025-07-25] MED LIST changes: +ACET-840 PO; +TAMS-18 PO
== END ==
LOC: M OUTALCOH 07:38
PROVIDERS: ATTEND Psychiatry & Neurology Psychiatry
DX: F10.20 Alcohol dependence, uncomplicated (principal); F17.200 Nicotine dependence, unspecified, uncomplicated
CPT/HCPCS: 90791; G0463

== ENCOUNTER 2025-09-02 09:31 | Outpatient (RCR) | payer MEDICARE | END 2025-09-03 | LOC: M OUTALCOH 09:31 | PROVIDERS: ATTEND Psychiatry & Neurology Psychiatry | DX: F10.20 Alcohol dependence, uncomplicated (principal); F17.200 Nicotine dependence, unspecified, uncomplicated ==